=== PATIENT | female | born 1960 | race Caucasian/White ===

== ENCOUNTER 2019-01-04 11:11 | Emergency (ER) | payer OTHER, SELFPAY ==
[2019-01-04 11:13] VITALS: BP 180/110; PULSE 93; RESP 17; TEMP 36.6; O2SAT 99; BMI 26.4
--- NOTE | 2019-01-04 11:30 | ED.VISSUMM ---
- ER Visit Summary Date of Service: 01/04/19 Chief Complaint: Acute on chronic neck pain History of Present Illness: The patient is a 58 F cervical spine. Had prior neck films showed DJD is seen 4, 5, 6 and 7. Is never had any neck or back surgeries. Last several days has had increasing pain in her neck. Denies any numbness or weakness to her upper or lower extremities. Today was being seen in the urgent care due to the pain her blood pressure was elevated they were concerned about the blood pressure in center in the ER. She is not treated for hypertension and has no other significant past medical history. Currently she is on no medications. Physical Examination: Well-appearing middle-age female. Vital signs are stable initial blood pressure is 180/110 I think is secondary to pain. She is afebrile. She is in no acute distress. H EENT exam unremarkable. Neck is tender on the mid to lower cervical spine. Trachea midline. No lymphadenopathy. Lungs clear to auscultation bilaterally. Heart regular rhythm no murmur. Chest wall nontender and abdomen is soft nontender. Normal bowel sounds no peritoneal signs. She is moving all 4 extremities. They are neurovascular intact. Full range of motion. Upper and lower extremities. 5 out of 5 survey research associate strength. Dorsi plantar flexion intact. No cauda equina. No saddle anesthesia. Normal sensation. Back exam nontender. Neurologically she is intact with no motor or sensory deficits. Test Results: She had prior cervical spine films. And follow-up she will need an MRI of her cervical spine but she does not need that emergently today. Emergency Department Course and Treatment: Treated with IM morphine and p.o. Zofran. Patient doing well after IM injection. Repeat blood pressure is much better approximately 139/80. Patient has not had a history of hypertension. She will log her blood pressures at home and follow-up with her primary care physician. Today I think is secondary to a pain issue. Treatment Plan: Limited [place] 15 no refill for pain. Otherwise Motrin and/or Tylenol. She will need an MRI of her cervical spine and follow-up with a neurosurgeon or orthopedic system configuration specialist. Disposition: Discharge Impression: Acute on chronic neck pain with known degenerative disc disease of the cervical spine Elevated blood pressure secondary to pain This note was generated with TuneUpation software. It may contain incorrect words, spelling, and punctuation that were not noted in review of the chart prior to signing ED Disposition - Plan for ED Patient: Disposition: Home or Assisted Living Instructions: ED Neck Pain No Trauma Referrals: Lainey Solano DO [Primary Care Provider] - As soon as possible Additional Instructions: Follow-up your primary care physician. He will need to follow-up and get an outpatient MRI of your cervical spine of your neck. Viewed by a orthopedic spine surgeon or a neurosurgeon to determine if there is any intervention or treatment he will need for your degenerative disc disease of your neck. Most likely her blood pressure today was elevated due to the pain. This will need to be rechecked and followed up to ensure that you are not developing hypertension.
--- NOTE | 2019-01-04 11:33 | ED.DCSUM_ITS ---
- ER Visit Summary Date of Service: 01/04/19 Chief Complaint: Acute on chronic neck pain History of Present Illness: The patient is a 58 F cervical spine. Had prior neck films showed DJD is seen 4, 5, 6 and 7. Is never had any neck or back surgeries. Last several days has had increasing pain in her neck. Denies any numbness or weakness to her upper or lower extremities. Today was being seen in the urgent care due to the pain her blood pressure was elevated they were concerned about the blood pressure in center in the ER. She is not treated for hypertension and has no other significant past medical history. Currently she is on no medications. Physical Examination: Well-appearing middle-age female. Vital signs are stable initial blood pressure is 180/110 I think is secondary to pain. She is afebrile. She is in no acute distress. H EENT exam unremarkable. Neck is t renée on the mid to lower cervical spine. Trachea midline. No lymphadenopathy. Lungs clear to auscultation bilaterally. Heart regular rhythm no murmur. Chest wall nontender and abdomen is soft nontender. Normal bowel sounds no peritoneal signs. She is moving all 4 extremities. They are neurovascular intact. Full range of motion. Upper and lower extremities. 5 out of 5 foreman/project manager strength. Dorsi plantar flexion intact. No cauda equina. No saddle anesthesia. Normal sensation. Back exam nontender. Neurologically she is intact with no motor or sensory deficits. Test Results: She had prior cervical spine films. And follow-up she will need an MRI of her cervical spine but she does not need that emergently today. Emergency Department Course and Treatment: Treated with IM morphine and p.o. Zofran. Patient doing well after IM injection. Repeat blood pressure is much better approximately 139/80. Patient has not had a history of hypertension. She will log her blood pressures at home and follow-up with her primary care physician. Today I think is secondary to a pain issue. Treatment Plan: Limited [place] 15 no refill for pain. Otherwise Motrin and/or Tylenol. She will need an MRI of her cervical spine and follow-up with a neurosurgeon or orthopedic medicare contact specialist. Disposition: Discharge Impression: Acute on chronic neck pain with known degenerative disc disease of the cervical spine Elevated blood pressure secondary to pain This note was generated with Temptsteration software. It may contain incorrect words, spelling, and punctuation that were not noted in review of the chart prior to signing ED Disposition - Plan for ED Patient: Disposition: Home or Assisted Living Instructions: ED Neck Pain No Trauma Referrals: Lainey Solano DO [Primary Care Provider] - As soon as possible Additional Instructions: Follow-up your primary care physician. He will need to follow-up and get an outpatient MRI of your cervical spine of your neck. Viewed by a orthopedic spine surgeon or a neurosurgeon to determine if there is any intervention or treatment he will need for your degenerative disc disease of your neck. Most likely her blood pressure today was elevated due to the pain. This will need to be rechecked and followed up to ensure that you are not developing hypertension.
[2019-01-04] MEDS: Ondansetron ODT 4 MG Tablet PO (11:35)
[2019-01-04] MEDS: morphine 10 MG/ML Syringe IM (11:35)
--- NOTE | 2019-01-04 12:44 | DCINST.ED_ITS ---
ED Disposition - Plan for ED Patient: Instructions: ED Neck Pain No Trauma Prescriptions: Hydrocodone/Acetaminophen [[place] 7.5-325 Tablet] 1 ea PO Q4H PRN PRN #15 tab PRN Reason: Pain Referrals: Lainey Solano DO [Primary Care Provider] - As soon as possible Additional Instructions: Follow-up your primary care physician. He will need to follow-up and get an outpatient MRI of your cervical spine of your neck. Viewed by a orthopedic spine surgeon or a neurosurgeon to determine if there is any intervention or treatment he will need for your degenerative disc disease of your neck. Most likely her blood pressure today was elevated due to the pain. This will need to be rechecked and followed up to ensure that you are not developing hypertension.
[2019-01-04 12:47] VITALS: BP 139/91; PULSE 77; RESP 16
== END 2019-01-04 12:48 | disposition home or self-care (01) ==
PROVIDERS: Emergency Provider Emergency Medicine; Family Provider Family Medicine; PCP Family Medicine
DX: M50.321 Other cervical disc degeneration at C4-C5 level (principal); G89.29 Other chronic pain; R03.0 Elevated blood-pressure reading, without diagnosis of hypertension; Z72.0 Tobacco use
CPT/HCPCS: 96372; 99283

== ENCOUNTER 2019-03-02 17:46 | Emergency (ER) | payer OTHER, SELFPAY ==
[2019-03-02 17:46] VITALS: BP 121/86; PULSE 97; RESP 18; TEMP 36.1; O2SAT 97; BMI 25.8
--- NOTE | 2019-03-02 19:12 | ED.VIS.GEN ---
History of Present Illness Chief Complaint: Abd Pain Informant: Patient Onset: Today Context: Sudden Onset Timing: Continuous Quality: Pain Location: Right lower quadrant Current Severity: Mild Maximum Severity: Moderate Worsened by: Food, walking and palpation Relieved by: Nothing Associated Symptoms: No associated fever, anorexia, vomiting, diarrhea or constipation Narrative: Patient is a middle-aged male who presents with right lower quadrant pain that started this morning. She denies vomiting or diarrhea. Bowel movement this morning and normal. She denies hematemesis, melena hematochezia. She denies dysuria, frequency, urgency or hematuria. She has no history of intolerance to greasy or fried foods. There is no family history cholelithiasis. She denies abdominal surgery. She denies back pain. There is no history of trauma. She does point in the region superior to McBurney's point. She denies history of hernia. Prior similar symptoms: No Recent Illness/Hospitalization: No - Past Medical History (1) Obese Status: Chronic Past Medical History - Allergies and Home Meds Allergies/Adverse Reactions: Allergies No Known Allergies Allergy (Verified 03/02/19 17:48) Primary Care Physician: Lainey Solano DO [Primary Care Provider] - Prior records reviewed: Yes Surgical History: noncontributory Lives: Spouse/ Significant Other Smoking Status: Current every day smoker Drugs: None Review of Systems General: Denies: Chills, Fever, Malaise, Sweats Eyes: Denies: Visual changes - bilaterally, Diplopia ENT: Denies: Rhinorrhea, Sore throat Cardiovascular: Denies: Chest pain, Palpitations Respiratory: Denies: Dyspnea, Cough, Dyspnea on exertion Gastrointestinal: Reports: Abdominal pain, Nausea, - - She denies anorexia and denies food intolerance.. Denies: Vomiting, Diarrhea, Constipation, Melena, Hematochezia Genitourinary: Denies: Dysuria, Hematuria, Frequency Musculoskeletal: Denies: Myalgias, Arthralgias, Neck pain, Back pain, Extremity Pain Skin: Denies: Rash, Wounds Neurological: Denies: Headache, Weakness, Numbness Allergy: Denies: Uticaria, Swelling of the mouth Physical Exam Vital Signs/Narrative: Vital Signs Temp Pulse Resp BP Pulse Ox 03/02/19 17:46 97 F L 97 18 121/86 H 97 Inital Vital Signs reviewed: Yes General: Well nourished, Well developed, No Acute Distress Head: Normocephalic, Atraumatic Eyes: Perrl, EOMI ENT: Moist mucous membranes, No rhinorrhea Neck: Supple, Nontender Cardiovascular: Regular rate, Regular rhythm, No murmurs Respiratory: No distress, CTA bilaterally, Chest nontender Abdomen: Soft, Nondistended, No masses, Tender, Guarding, Hypoactive bowel sounds, Umbilical hernia - Small umbilical reducible hernia, Freeman's sign - Equivocal Freeman sign. Negative for: Normal bowel sounds, Rebound tenderness, Ventral hernia, Inguinal hernia, Psoas sign, Obturator sign, Rovsig's sign Rectal: Deferred Back: Nontender, Normal Inspection. Negative for: CVA tenderness Extremities: Nontender, No edema Skin: Normal color, No rash. Negative for: Cyanosis - The make me laugh and make up for my city daily [place] day, Jaundice Neurological: Alert, Oriented x3, Cranial nerves II-XII grossly intact, Normal Strength, Normal Sensation Psychological: Normal affect, Normal Mood Diagnostic/Tx/Re-eval Impressions Abdomen/Pelvis CT 03/02/19 20:44 IMPRESSION: 1. Bilateral renal cysts. 2. Colonic diverticulosis with no evidence of associated diverticulitis. 3. Small fat-containing umbilical hernia. 4. Degenerative changes of the lumbar spine. 5. The appendix was not identified. 6. There is a lipid-containing subcutaneous nodule of the medial anterior left chest wall measuring 2.3 cm most likely representing a sebaceous cyst. 7. There is no evidence of free intra-abdominal or intrapelvic air, fluid, or inflammatory process. The pancreas and peripancreatic soft tissues appear within normal limits. Electronically Signed: Christiano Pearce MD at 23:36 EDT , Service support , 03/02/19 20:44 Abdomen/Pelvis WITH Contrast [CT] Stat Laboratory Results 03/02/19 03/02/19 19:55 19:55 WBC 8.6 RBC 4.78 Hgb 15.3 H Hct 43.5 MCV 91.0 MCH 32.0 MCHC 35.2 RDW 13.0 RDW Differential 43.5 Plt Count 233 MPV 10.2 Immature Gran % (Auto) 0.100 Neut % (Auto) 49.8 Lymph % (Auto) 41.2 H [place] % (Auto) 5.7 Eos % (Auto) 2.6 Baso % (Auto) 0.6 Absolute Neuts (auto) 4.3 Absolute Lymphs (auto) 3.55 Total Counted Not Reportable Sodium 139 Potassium 4.0 Chloride 106 Carbon Dioxide 29.0 Anion Gap 4 L BUN 21 H Creatinine 0.85 Estim Creat Clear Calc 67.54 Est GFR (MDRD) Af Amer 88 Est GFR (MDRD) Non-Af 73 BUN/Creatinine Ratio 24.8 H Glucose 104 Calcium 9.9 Total Bilirubin 0.50 Direct Bilirubin 0.13 AST 19 ALT 31 Alkaline Phosphatase 61 Total Protein 7.7 Albumin 4.1 Globulin 3.6 Lipase 793 H - Medical Decision Making Maximal tenderness superior to McBurney's point however patient does have a equivocal Freeman sign. Differential is cholelithiasis versus appendicitis versus other cause. Blood work was ordered to help differentiate whether a CT of the abdomen is the test of choice versus ultrasound of the right upper quadrant. Patient was medicated with Zofran and morphine and received IV fluids. Will reevaluate after labs are back to determine appropriate radiologic image. Lipase is 2 times normal. White count is normal. AST and ALT normal. Alk phos normal. Patient admits to a couple of beers occasionally on weekends. She denies history of pancreatitis. Because maximal tenderness in the proximity McBurney's point will obtain CT of the abdomen to evaluate her appendix as well as pancreas. Realizing that the [place] for biliary disease only 75%. CAT scan reveals no acute pathology. Radiologist commented the appendix was not visualized. Since patient does not have anorexia, not febrile and white count is normal will discharge to home with appropriate home-going instructions for pain of unknown etiology. ED Disposition - Plan for ED Patient: Disposition: Home or Assisted Living Diagnosis: Abdominal pain, acute, right lower quadrant, Elevated lipase Instructions: ED Abdominal Pain Unkn Cause, ED Abdominal Pain Appendx Poss Prescriptions: Dicyclomine HCl [Bentyl] 20 mg PO TIDAC #20 cap Referrals: Lainey Solano DO [Primary Care Provider] - 1-2 Days if not improving Additional Instructions: Even though the CAT scan revealed no abnormality no white count is normal there is a small possibility this may represent her appendix. If symptoms worsen or if you develop fever, loss of appetite or pain worsens return to the emergency department. Recommend follow-up with your primary care provider Dr. Lainey Solano in 24-48 hours.
[2019-03-02 19:46] VITALS: BP 141/78; PULSE 81; RESP 16; O2SAT 98
[2019-03-02] MEDS: Ondansetron 4 MG/2 ML Vial IV (19:57)
[2019-03-02] MEDS: Morphine 4 MG/ML Syringe IV (19:57)
[2019-03-02] MEDS: 0.9% Normal Saline 1,000 ML 1000 ML IV (19:58)
[2019-03-02 20:25] LABS: AST(SGOT) 19 U/L (15-37); Alanine Aminotransfer ALT/SGPT 31 U/L (13-56); Albumin, Serum 4.1 g/dL (3.2-5.0); Alkaline Phosphatase 61 U/L (45-117); Anion Gap 4 (5-15); BUN 21 mg/dL (7-18); BUN/Creat Ratio 24.8 RATIO (10-20); Bilirubin, Direct 0.13 mg/dL (0.00-0.30); Calcium,Total 9.9 mg/dL (8.5-10.1); Chloride 106 mmol/L (98-107); Creatinine, Serum 0.85 mg/dL (0.55-1.02); EST Glomerular Filtration Rate 73 mL/min (>60); Est Glom Filt Rate - Afr Amer 88 mL/min (>60); Estimated Creatinine Clearance 67.54 ml/min; Globulin 3.6 g/dL (2.2-4.2); Glucose 104 mg/dL (74-106); Lipase 793 U/L (73-393); Protein, Total 7.7 g/dL (6.4-8.2); Sodium Level 139 mmol/L (136-145)
[2019-03-02 20:37] LABS: Absolute Lymphocyte Count 3.55 X10^3/ul (0.83-4.51); Absolute Neutrophil Count 4.3 X10^3/uL (2.0-7.7); Basophil# 0.05 X10^3/uL; Basophil% 0.6 % (0-1); Eosinophil# 0.22 X10^3/uL; Eosinophils% 2.6 % (0-5); Hematocrit 43.5 % (37-47); Hemoglobin 15.3 g/dl (12.0-15.0); Lymphocyte # 3.55 X10^3/ul (4.0); Lymphocyte % 41.2 % (19-41); Mean Corp Hgb Conc 35.2 g/gl (32-36); Mean Platelet Vol. 10.2 fl (6.2-12.0); Monocyte# 0.49 X10^3/uL; Monocyte% 5.7 % (0-10); Neutrophil % 49.8 % (47-70); Platelet Count 233 K/mm3 (150-450); RBC Distribution Width SD 43.5 fl (35.1-43.9); Red Blood Count 4.78 M/mm3 (4.2-5.4); White Blood Count 8.6 K/mm3 (4.4-11.0)
[2019-03-02 20:38] LABS: POSITIVE COUNT NO; POSITIVE DIFFERENTIAL NO; POSITIVE MORPHOLOGY NO
--- NOTE | 2019-03-02 20:44 | CT_ITS ---
STUDY: CT ABDOMEN AND PELVIS WITH CONTRAST REASON FOR EXAM: Female, 58 years old. Right lower quadrant pain, elevated lipase RADIATION DOSAGE (If Supplied By Facility): CTDIvol = ( 17.03 ) mGy, DLP = ( 914.41 ) mGycm TECHNIQUE: Transaxial images were obtained from the dome of the diaphragm to the symphysis pubis without oral contrast. 100ml IV/Oral Isovue 300 was administered. Sagittal and coronal images were reconstructed. Individualized dose optimization techniques were used for this CT. COMPARISON: None. FINDINGS: There is a mosaic attenuation pattern of the lung bases. The visualized portions of the heart are within normal limits. There is a subcentimeter cyst of the left hepatic lobe. Normal gallbladder and extrahepatic biliary system. Normal spleen. Normal pancreas. Normal bilateral adrenal glands. There is a 1.3 cm right renal cyst. There is a 3.0 cm left renal cyst. Normal visualized stomach. Normal small intestine. There is colonic diverticulosis with no evidence of associated diverticulitis. There is non-visualization of the appendix. There are calcified plaques of the abdominal aorta and common iliac arteries. Normal inferior vena cava. Normal retroperitoneum. Normal urinary bladder. The uterus and adnexal structures appear normal. There is a small umbilical hernia containing fat. There are diffuse degenerative changes of the lumbar spine. There is a subcutaneous lipid-containing nodule of the medial anterior left chest wall measuring 2.3 cm, most likely representing a sebaceous cyst. CT/Abdomen/Pelvis WITH Contrast IMPRESSION: 1. Bilateral renal cysts. 2. Colonic diverticulosis with no evidence of associated diverticulitis. 3. Small fat-containing umbilical hernia. 4. Degenerative changes of the lumbar spine. 5. The appendix was not identified. 6. There is a lipid-containing subcutaneous nodule of the medial anterior left chest wall measuring 2.3 cm most likely representing a sebaceous cyst. 7. There is no evidence of free intra-abdominal or intrapelvic air, fluid, or inflammatory process. The pancreas and peripancreatic soft tissues appear within normal limits. Electronically Signed: Christiano Pearce MD at 23:36 EDT , Service support ,
[2019-03-02 22:00] VITALS: BP 131/71; PULSE 79; RESP 16; O2SAT 98
[2019-03-02 23:54] VITALS: BP 118/81; PULSE 89; RESP 13; O2SAT 94
== END 2019-03-02 23:55 | disposition home or self-care (01) ==
PROVIDERS: Emergency Provider Emergency Medicine; Family Provider Family Medicine; PCP Family Medicine
DX: R10.31 Right lower quadrant pain (principal); R74.8 Abnormal levels of other serum enzymes; R11.0 Nausea; E66.9 Obesity, unspecified; Z79.899 Other long term (current) drug therapy; F17.200 Nicotine dependence, unspecified, uncomplicated
CPT/HCPCS: 74177; 80048; 80076; 83690; 85025; 96361; 96374; 96375; 99283; J7030; Q9967; A4216; J2405

== ENCOUNTER → 2022-07-12 | Outpatient (CLI) | payer OTHER, SELFPAY ==
[2022-07-12 08:14] LABS: Absolute Lymphocyte Count 2.52 X10^3/uL (0.83-4.51); Absolute Neutrophil Count 5.2 X10^3/uL (2.0-7.7); Basophil# 0.05 X10^3/uL; Basophil% 0.6 % (0-1); Eosinophil# 0.18 X10^3/uL; Eosinophils% 2.1 % (0-5); Hematocrit 43.3 % (37-47); Hemoglobin 14.6 g/dL (12.0-15.0); Lymphocyte # 2.52 X10^3/ul (0.83-4.51); Lymphocyte % 29.9 % (19-41); Mean Corp Hgb Conc 33.7 g/dL (32-36); Mean Corpuscular Hgb 31.4 pg (27.0-32.0); Mean Corpuscular Volume 93.1 fL (81-99); Mean Platelet Vol. 10.1 fl (6.2-12.0); Monocyte# 0.51 X10^3/uL; NRBC Flagged by Analyzer 0 % (0-5); Neutrophil # 5.15 X10^3/uL (2.7-7.7); Neutrophil % 61.2 % (47-70); Platelet Count 211 K/mm3 (150-450); RBC Distribution Width CV 12.6 % (11.6-14.6); RBC Distribution Width SD 42.9 fl (35.1-43.9); Red Blood Count 4.65 M/mm3 (4.2-5.4); White Blood Count 8.4 K/mm3 (4.4-11.0)
[2022-07-12 08:44] LABS: Vitamin D,25 Hydroxy 53.1 ng/mL
[2022-07-12 08:59] LABS: AST(SGOT) 27 U/L (15-37); Alanine Aminotransfer ALT/SGPT 55 U/L (13-56); Albumin, Serum 3.7 g/dL (3.2-5.0); Alkaline Phosphatase 58 U/L (45-117); Anion Gap 6 (5-15); BUN 15 mg/dL (7-18); BUN/Creat Ratio 18.8 RATIO (10-20); Calcium,Total 9.3 mg/dL (8.5-10.1); Chloride 109 mmol/L (98-107); EST Glomerular Filtration Rate 77 mL/min (>60); Est Glom Filt Rate - Afr Amer 94 mL/min (>60); Globulin 3.7 g/dL (2.2-4.2); Glucose 117 mg/dL (74-106); Potassium 4.1 mmol/L (3.5-5.1); Protein, Total 7.4 g/dL (6.4-8.2); Sodium Level 143 mmol/L (136-145); Thyroid Stim Hormone (TSH) 2.91 uIU/mL (0.358-3.74)
== END | disposition home or self-care (01) ==
LOC: LAB 07:59
PROVIDERS: PCP Internal Medicine; Referring Provider Internal Medicine; Visit Provider Internal Medicine
DX: R73.01 Impaired fasting glucose (principal); I73.9 Peripheral vascular disease, unspecified; R09.89 Other specified symptoms and signs involving the circulatory and respiratory systems; E55.9 Vitamin D deficiency, unspecified; Z87.891 Personal history of nicotine dependence
CPT/HCPCS: 36415; 80053; 82306; 83036; 83525; 84443; 85025

== ENCOUNTER → 2022-08-21 | Outpatient (CLI) | payer OTHER, SELFPAY ==
--- NOTE | 2022-08-21 08:29 | AAVD_ITS ---
Reason For Study: ABDOMINAL BRUIT Aorta Measurements Aorta Doppler Measurements Proximal aorta measures1.69 x 1.71cm. in cross- Peak systolic flow velocities within the proximal sectional axis. aorta measure 48.1 cm/sec. Proximal aorta measures1.70cm. in longitudinal Peak systolic flow velocities within the mid aorta axis. measure 46.7 cm/sec. Mid aorta measures1.71 x 1.75cm. in cross- Peak systolic flow velocities within the distal sectional axis. aorta measure 50.2 cm/sec. Mid aorta measures1.70cm. in longitudinal axis. Distal aorta measures1.23 x 1.24cm. in cross- sectional axis. Distal aorta measures1.23cm. in longitudinal axis. Left Iliac Artery Left iliac artery measures 0.85 x 0.84 cm. in the cross-sectional axis. Left iliac artery measures 0.72 cm. in the longitudinal axis. Peak systolic velocity in the left iliac artery measures 107.3 cm/sec. Right Iliac Artery Right iliac artery measures 1.01 x 1.03 cm. in the cross-sectional axis. Right iliac artery measures 1.0 cm. in the longitudinal axis. Peak systolic velocity in the right iliac artery measures 55.9 cm/sec. Procedure Aorta IVC Iliac vasculature or bypass grafts [id number]. Exam performed in department. VL/Abd Aortic/IVC Duplex scan Interpretation Summary Maximal aortic dimension in the mid abdominal aorta at 1.71 x 1.75 cm in diamet er which is normal. Normal aortic flow velocities Left common iliac normal at 0.85 x 0.84 cm in diameter with very slightly incre ased velocity Right common iliac normal at 1.01 x 1.03 cm in diameter. Normal flow velocity. Ordering Physician: Evelyne Yang Referring Physician: Evelyne Yang Performed By: Shira Abbott, RDCS, RVT
--- NOTE | 2022-08-21 08:29 | ART_ITS ---
Reason For Study: PVD W/CLAUDICATION Procedure A bilateral lower extremity continuous wave Doppler with analog waveform analysis and ankle brachial indexes. Left Segmental Pressures Left brachial= 153mmHg. Left posterior tibial artery = 165mmHg. Left dorsalis pedis artery = 170mmHg. The left posterior tibial artery waveforms are triphasic. The left dorsalis pedis waveforms are triphasic. Right Segmental Pressures Right brachial= 150mmHg. Right posterior tibial artery = 98mmHg. Right dorsalis pedis artery = 97mmHg. The right posterior tibial artery waveforms are biphasic. The right dorsalis pedis waveforms are monophasic. Indices The right resting ankle brachial index is 0.64. The right ankle brachial index by the posterior tibial artery is 0.64. The right ankle brachial index by the dorsalis pedis is 0.63. The left resting ankle brachial index is 1.11. The left ankle brachial index by the posterior tibial artery is 1.08. The left ankle brachial index by the dorsalis pedis is 1.11. VL/Ankle Brachial Index Interpretation Summary Abnormal right lower extremity posterior tibialis and dorsalis pedis ankle-brac hial indices of 0.64 and 0.63 respectively with biphasic and monophasic Doppler waveforms consistent with moderate severity arterial occlusive disease. Normal left lower extremity resting posterior tibialis and dorsalis pedis ankle -brachial indices of 1.08 and 1.11 respectively with normal triphasic Doppler waveforms Ordering Physician: Evelyne Tariq Referring Physician: EVELYNE TARIQ MD Performed By: Shira Abbott RVT, RDCS
== END | disposition home or self-care (01) ==
PROVIDERS: PCP Internal Medicine; Referring Provider Internal Medicine; Visit Provider Internal Medicine
DX: I73.9 Peripheral vascular disease, unspecified (principal); R09.89 Other specified symptoms and signs involving the circulatory and respiratory systems; Z72.0 Tobacco use
CPT/HCPCS: 93922; 93978

== ENCOUNTER → 2022-09-06 | Outpatient (CLI) | payer OTHER, SELFPAY ==
--- NOTE | 2022-09-06 11:48 | EKG12_ITS ---
Test Reason : PREOP Blood Pressure : / mmHG Vent. Rate : 062 BPM Atrial Rate : 062 BPM P-R Int : 226 ms QRS Dur : 094 ms QT Int : 400 ms P-R-T Axes : 058 -39 -03 degrees QTc Int : 406 ms Sinus rhythm with 1st degree A-V block Left axis deviation Septal infarct , age undetermined Abnormal ECG Confirmed by RIO YU, PAYAM ([id number]), staff editor SONJA GRANDE ([id number]) on 09/07/2022 7:50:14 AM Referred By: Bertram Harvey Confirmed By:PAYAM PATE MD
== END | disposition home or self-care (01) ==
PROVIDERS: PCP Internal Medicine; Referring Provider Surgery; Visit Provider Surgery
DX: I49.9 Cardiac arrhythmia, unspecified (principal)
CPT/HCPCS: 93005

== ENCOUNTER → 2022-09-20 | Outpatient (CLI) | payer OTHER, SELFPAY ==
--- NOTE | 2022-09-20 12:13 | CDU_ITS ---
Reason For Study: BRUIT Rt. Velocities/BP Lt. Velocities/BP Prox CCA 62.0/10.0 cm/sec. Prox CCA 77.9/19.7 cm/sec. Mid CCA 59.1/14.7 cm/sec. Mid CCA 85.6/32.9 cm/sec. Dist CCA 67.16/22.3 cm/sec. Dist CCA 81.2/23.0 cm/sec. Prox ICA 50.9/15.0 cm/sec. Prox ICA 40.6/19.7 cm/sec. Mid ICA 66.0/20.7 cm/sec. Mid ICA 85.3/27.0 cm/sec. Dist ICA 57.5/11.2 cm/sec. Dist ICA 64.6/29.6 cm/sec. Rt. ICA/CCA = 66.0/67.6=1.0. Lt. ICA/CCA = 85.3/85.6=1.0. Prox ECA 55.4/11.0 cm/sec. Prox ECA 110.0/21.6 cm/sec. Rt. Vert. 41.5/14.1 cm/sec. Lt. Vert. 36.4/18.7 cm/sec. Right Extracranial There is homogeneous, smooth atherosclerotic plaque noted in the right common carotid artery. There is homogeneous, smooth atherosclerotic plaque noted in the right internal carotid artery. The right internal carotid artery is not well visualized. There is intimal thickening but no significant atherosclerotic plaque noted in the right external carotid artery. Antegrade flow is noted in the right vertebral artery. Left Extracranial There is intimal thickening but no significant atherosclerotic plaque noted in the left common carotid artery. There is intimal thickening but no significant atherosclerotic plaque noted in the left internal carotid artery. There is no significant atherosclerotic plaque noted in the left external carotid artery. Antegrade flow is noted in the left vertebral artery. Procedure Carotid Duplex [id number]. Exam performed in department. VL/Carotid Duplex Ultrasound Interpretation Summary Smooth plaque involving the proximal right internal carotid artery with less th an 50% stenosis based upon velocity. The right internal carotid artery however is not well visualized . Less than 50% stenosis right external carotid artery Intimal thickening at the proximal left internal carotid artery with less than 50% stenosis. The left internal carotid artery is adequately visualized Less than 50% stenosis left external carotid artery Patent and antegrade vertebral arteries bilaterally Ordering Physician: Bertram Harvey Referring Physician: Evelyne Yang Performed By: Shira Abbott RDCS, RVT
== END | disposition home or self-care (01) ==
PROVIDERS: PCP Internal Medicine; Referring Provider Surgery; Visit Provider Surgery
DX: I65.21 Occlusion and stenosis of right carotid artery (principal); R09.89 Other specified symptoms and signs involving the circulatory and respiratory systems
CPT/HCPCS: 93880

== ENCOUNTER 2022-10-01 06:14 | Day surgery (SDC) | payer OTHER, SELFPAY ==
[2022-10-01 06:31] LABS: Hematocrit 46.7 % (37-47); Hemoglobin 15.8 g/dL (12.0-15.0); Mean Corp Hgb Conc 33.8 g/dL (32-36); Mean Corpuscular Hgb 31.2 pg (27.0-32.0); Mean Corpuscular Volume 92.3 fL (81-99); Mean Platelet Vol. 9.7 fl (6.2-12.0); Platelet Count 227 K/mm3 (150-450); RBC Distribution Width CV 12.5 % (11.6-14.6); RBC Distribution Width SD 42.5 fl (35.1-43.9); Red Blood Count 5.06 M/mm3 (4.2-5.4); White Blood Count 8.3 K/mm3 (4.4-11.0)
[2022-10-01 06:45] LABS: Anion Gap 5 (5-15); BUN 15 mg/dL (7-18); BUN/Creat Ratio 18.9 RATIO (10-20); Calcium,Total 9.5 mg/dL (8.5-10.1); Chloride 110 mmol/L (98-107); Creatinine, Serum 0.79 mg/dL (0.55-1.02); EST Glomerular Filtration Rate 78 mL/min (>60); Est Glom Filt Rate - Afr Amer 94 mL/min (>60); Glucose 122 mg/dL (74-106); Sodium Level 143 mmol/L (136-145)
[2022-10-01 06:47] VITALS: BMI 24.7
--- NOTE | 2022-10-01 07:28 | PCM.HP.BLA ---
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 History of removal of cyst Family History? Father Myocardial infarction Hypertension Social History? Smoking Status:? Current every day smoker alcohol intake:? current alcohol intake frequency: holidays/special occasions only substance use type:? does not use what type of physical activity do you participate in:? walking frequency:? 3-4 times per week HPI HPI HPI: 62-year-old female who is referred by Dr. Evelyne Yang for surgical consultation regarding vascular claudication peripheral arterial occlusive disease and a written copy of my surgical consult recommendations will return to him.? She has greater than a [id number] history of cigarette smoking.? She recently ceased. The aortic ultrasound was obtained because of a bruit but no aneurysm was identified. Ankle-brachial indices were obtained on August 21, 2022 the right PT and DP KALPANA was 0.64 and 0.62 at rest with biphasic waveforms.? The left lower extremity PT and DP ankle-brachial index at rest 1.08 and 1.11 respectively with triphasic Doppler waveforms August 21, 2022 Reason For Study: PVD W/CLAUDICATION Procedure A bilateral lower extremity continuous wave Doppler with analog waveform analysis and ankle brachial indexes. Left Segmental Pressures Left brachial= 153mmHg. Left posterior tibial artery = 165mmHg. Left dorsalis pedis artery = 170mmHg. The left posterior tibial artery waveforms are triphasic. The left dorsalis pedis waveforms are triphasic. Right Segmental Pressures Right brachial= 150mmHg. Right posterior tibial artery = 98mmHg. Right dorsalis pedis artery = 97mmHg. The right posterior tibial artery waveforms are biphasic. The right dorsalis pedis waveforms are monophasic. Indices The right resting ankle brachial index is 0.64. The right ankle brachial index by the posterior tibial artery is 0.64. The right ankle brachial index by the dorsalis pedis is 0.63. The left resting ankle brachial index is 1.11. The left ankle brachial index by the posterior tibial artery is 1.08. The left ankle brachial index by the dorsalis pedis is 1.11. VL/Ankle Brachial Index Interpretation Summary Abnormal right lower extremity posterior tibialis and dorsalis pedis ankle-brachial indices of 0.64 and 0.63 respectively with biphasic and monophasic Doppler waveforms consistent with moderate severity arterial occlusive disease. ? Normal left lower extremity resting posterior tibialis and dorsalis pedis ankle-brachial indices of 1.08 and 1.11 respectively with normal triphasic Doppler waveforms ? ? Ordering Physician: Evelyne Yang Referring Physician: EVELYNE YANG MD Performed By: Shira Abbott Wyatt, [facility] The patient presents today.? She newly establish care with Dr. Evelyne Yang.? She states that for 2 years she has been having trouble with discoloration of her right foot with intermittent mitten numbness.? She sits at a computer 8 hours a day occasionally getting up.? Sometimes when she walks she will limp favoring her right leg due to numbness. She is not currently on any medication.? She does not take any anticoagulants.? She has not been on any cholesterol medication.? No antihypertensives.? She denies myocardial infarction or stroke. As of July 04, 2022 total cholesterol was 307 with triglycerides 195.? HDL was 43 and VLDL 38 with a LDL at 226.? Glucose was 111. As of July 12, 2022 her white count was 8.4 with a Humoryl 14.6 Molina crit 43.3 platelet count 211,000.? Glucose was 117 BUN was 15 creatinine 0.8.? Liver function tests were normal. ROS General General: Yes weight change and fatigue; No appetite, colon cancer, breast cancer or weakness HEENT HEENT: No difficulty swallowing, eye injury, eye surgery, swollen glands or hoarseness Endo Endocrine: No thyroid disease, diabetes mellitus, thyroid cancer, Hair loss, heat intolerance or cold intolerance Skin Skin: No rash or changing moles Musc Musculoskeletal: Yes back problems; No arthritis, rheumatoid arthritis, gout or joint pain Cardio Cardiovascular: No murmur, pacemaker, heart disease, atrial fibrillation, high blood pressure, heart attack, heart stent, palpitations, shortness of breat with exertion or chest pain Psych Psychiatric: No depression, anxiety or hearing voices Resp Respiratory: No shortness of breath, No sleep apnea, No cough, No COPD, No asthma, No emphysema and No wheezing Gastro Gastrointestinal: No abdominal pain, No nausea or vomiting, No diarrhea, No constipation, No blood in stool, Yes acid reflux, No hemorrhoids, No ulcers, No gallbladder problem and No black,tarry stools Phill Hematologic: No blood thinners, No blood disorders, No bleeding, No anemia and No blood clots Neuro Neurologic: No system reviewed and no additional complaints, except as documented, No as per HPI, No abnormal gait, No abnormal hearing, No abnormal movements, No abnormal speech, No behavioral changes, No burning sensations, No confusion, No convulsions, No disequilibrium, No dizziness, No localized weakness, No frequent falls, No headache(s), No lack of coordination, No loss of vision, No memory loss, No numbness (Right foot), No other visual disturbances, No radicular pain, No restless legs, No sensory deficit, No syncope, Yes tingling (Right foot), No tremor(s), No weakness and No other Exam Const General: cooperative, comfortable and no acute distress Nutritional Appearance: average body habitus [facility] Head: normal to inspection Eyes General: appearance normal, both eyes and all related structures Neck Neck: normal visual inspection Other: Carotids are somewhat difficult to palpate.? Possible slight bruit on the left.? No palpable adenopathy. Bilateral radials and brachials 3+. Bilateral femorals 3+. Left popliteal DP and PT 3+ Right popliteal, DP, PT absent Chest Other: Chest has increased AP diameter.? Adequate respiratory excursion. Resp Other: Clear in the apices. Cardio Other: Occasional ectopic beat, otherwise regular I do not detect a murmur GI Palpation: soft and no hepatosplenomegaly Other: Aorta is palpable and does not appear to be expansile.? No bruits noted Musc Cervical Spine: normal cervical lordosis Skin General: no rashes or lesions noted Neuro General: patient alert, patient awake and patient oriented x3 Extrem Other: Right foot is violaceous and cool to touch.? Bilateral feet suggest some digital atrophy.? No ulcerations on the right.? Left foot is warm.? There is elevation pallor on the right and dependent rubor Psych Appearance: grossly normal Assessment and Plan Assessment and Plan (1) PVD (peripheral vascular disease) with claudication: ?Status:?Acute ?Plan: Copy: Dr. Evelyne Harvey M.D., F.A.C.S. (2) Carotid bruit: ?Status:?Acute (3) Irregular heartbeat: ?Status:?Acute (4) Abnormal ankle brachial index (KALPANA): ?Status:?Acute ? ? ? Orders: Orders 12 Lead EKG Today I49.9 - Cardiac arrhythmia, unspecified ? Carotid Duplex Ultrasound Today R09.89 - Other specified symptoms and signs involving the circulatory and respiratory systems ? Plan Patient has a mildly irregular heart rate.? I recommend obtaining an EKG. Patient has difficult to palpate carotids very soft bruit on the left.? Long-term 40+ year pack year history of tobacco use.? I recommend carotid duplex imaging. Her abdominal exams not remarkable her aorta is easily palpable does not appear to be expansile Findings suggest occlusion of the right superficial femoral artery based upon clinical examination and patient's symptoms.? I propose a abdominal pelvic right lower extremity arteriogram via retrograde left common femoral approach.? Possible end of endovascular intervention.? I discussed the technique, benefit, risk, alternatives.? No guarantees of success have been offered.? Post procedure the patient if she has successful intervention would be initiated on rivaroxaban 2.5 mg orally twice daily in addition to low-dose aspirin 81 mg daily. Because of her hyperlipidemia and peripheral arterial occlusive disease I instructed instructed her to initiate 81 mg aspirin daily at this time I have asked her to contact Dr. Evelyne Yang's office regarding her hyperlipidemia.? I think a discussion regarding starting her on statin medication would be beneficial to her peripheral vascular outcome. She has had an opportunity to ask and have questions answered.? I appreciate the opportunity of assisting with her surgical care.? We will schedule procedure at her discretion. Copy: Dr. Evelyne Harvey M.D., F.A.C.S. Carotid duplex imaging did not demonstrate any critical disease. EKG showed sinus rhythm with first-degree AV block. Septal infarct age undetermined. Left axis deviation I have examined the patient and the H&P has been reviewed. There are no clinical changes since date of exam. Bertram Harvey M.D., F.A.C.S.
--- NOTE | 2022-10-01 09:24 | OP.PCM_ITS ---
Report of Operation Date of Procedure: 10/01/22 Pre-Operative Diagnosis: Right lower extremity vascular claudication Post-Operative Diagnosis: Mild disease right distal common iliac/proximal external iliac. Diffuse disease proximal right superficial femoral artery with complete occlusion of the right mid superficial femoral artery Patent right popliteal and three-vessel infrageniculate runoff Surgery/Procedure Performed:: Abdominal pelvic right lower extremity arteriogram with attempted recanalization of complete occlusion of the right mid superficial femoral artery Description of Surgical Findings:: Timeout and informed consent was obtained. 62-year-old female was taken to the special procedures lab placed upon the table. Bilateral groins were sterilely prepped and draped. She received 50 mcg of fentanyl and 2 mg of Versed is intravenous sedation. Ultrasound was used to identify the left common femoral artery 2% lidocaine was instilled as a local anesthetic throughout the procedure a total of 10 cc was used. Under ultrasound guidance a micropuncture needle was inserted into the left common femoral artery followed by Seldinger wire technique micropuncture sheath 035 J-wire 5 [place] short sheath dilator. Using an 035 angled Glidewire 5 [place] universal flush catheter was placed into the proximal abdominal aorta. Using Visipaque contrast the rate of 15 cc a second for 12 cc and AP aortogram was obtained. Using a Glidewire the catheter was withdrawn and then positioned into the right proximal superficial femoral artery. Static views of the right lower extremity were obtained down to the knee. This demonstrated complete occlusion of the right mid superficial femoral artery as well as diffuse disease proximally. I placed a Magic wire and exchanged out the 5 [place] sheath for a 7 [place] destination sheath. The patient received 8000 units of heparin. Then using a 035 quick cross catheter and a combination of a 035 floppy Glidewire and an 035 stiff Glidewire I was able to get through the initial occlusive Of the blockage. Despite multiple attempts I was not able to get back into the true lumen. I then withdrew the quick cross catheter to proximal to the obstruction and completed images of the right lower extremity demonstrating three-vessel runoff to the ankle. She tolerated the procedure well. Using a Magic wire then the sheath was removed and a Perclose device was placed on the left groin. There was somewhat of a hematoma present upon removing the destination sheath so pressure was held for hemostasis and to milk out the hematoma which was successfully done. Patient came minimally hypotensive and was asymptomatic. She was given a fluid bolus with resolution. Her feet were inspected noted to be warm and viable unchanged preintervention. She was has not taken to recovery area for observation Images demonstrate a patent abdominal aorta patent bilateral renal arteries infrarenal abdominal aorta has mild diffuse calcific disease. Bilateral common iliacs external iliacs and internal iliacs are patent. There is moderate disease of the proximal right superficial femoral artery which then tapers and completely occludes in the mid thigh. There is extensive collateralization. The superficial femoral artery then recannulate's prior to the popliteal. There appears to be three-vessel runoff to the foot. Subsequent to the recanalization attempt images were obtained of runoff to the right lower extremity which appears to be intact Consideration for possible future right common femoral to suprageniculate popliteal bypass would be a consideration. Bertram Harvey M.D., F.A.C.S. Surgeon: Bertram Harvey Type of Anesthesia: IV Sedation and Local
[2022-10-01 11:47] LABS: ACT Activated Clotting Time 126 sec (74-137)
[2022-10-01 11:48] LABS: ACT Activated Clotting Time 254 sec (74-137)
[2022-10-01 11:48] LABS: ACT Activated Clotting Time 225 sec (74-137)
== END 2022-10-01 16:04 | disposition home or self-care (01) ==
PROVIDERS: PCP Internal Medicine; Referring Provider Surgery; Visit Provider Surgery
DX: I73.9 Peripheral vascular disease, unspecified (principal); R09.89 Other specified symptoms and signs involving the circulatory and respiratory systems; I10 Essential (primary) hypertension; F17.210 Nicotine dependence, cigarettes, uncomplicated; Z79.899 Other long term (current) drug therapy
CPT/HCPCS: 36200; 36245; 36415; 75625; 75710; 76937; 80048; 85027; 85347; 99152; 99153; C1769; J7030; J7040; Q9967; C1760; C1887; C1894

== ENCOUNTER 2025-05-30 10:40 | Emergency (ER) | payer MEDICARE, OTHER, SELFPAY ==
[2025-05-30 10:41] VITALS: BP 177/104; PULSE 96; RESP 16; TEMP 36.6; O2SAT 98; BMI 25.2
--- NOTE | 2025-05-30 11:17 | CT_ITS ---
EXAM: CT Abdomen and Pelvis With Intravenous Contrast CLINICAL INDICATION: BLOODY DIARRHEA AND LOWER CRAMPING ABDOMINAL PAIN TECHNIQUE: Axial computed tomography images of the abdomen and pelvis with intravenous contrast. This CT exam was performed using one or more of the following dose reduction techniques: automated exposure control, adjustment of the mA and/or kV according to patient size, and/or use of iterative reconstruction technique. COMPARISON: No relevant prior studies available. FINDINGS: LUNG BASES: Unremarkable. No mass. No consolidation. MEDIASTINUM: Small esophageal hiatal hernia. ABDOMEN: LIVER: Hepatomegaly with fatty infiltration. GALLBLADDER AND BILE DUCTS: Unremarkable. No calcified stones. No ductal dilation. PANCREAS: Unremarkable. No mass. No ductal dilation. SPLEEN: Unremarkable. No splenomegaly. ADRENALS: Unremarkable. No mass. KIDNEYS AND URETERS: Bilateral renal cysts, largest measuring up to 4.5 cm. No stones within either kidney. No hydronephrosis. STOMACH AND BOWEL: Fecal retention in the colon consistent with constipation. Apparent wall thickening of the sigmoid colon, likely secondary to chronic inflammation. No current fat stranding to indicate acute inflammation. Colonic diverticulosis without acute diverticulitis. No obstruction. PELVIS: APPENDIX: No findings to suggest acute appendicitis. BLADDER: Unremarkable. No mass. REPRODUCTIVE: Unremarkable as visualized. ABDOMEN and PELVIS: INTRAPERITONEAL SPACE: Unremarkable. No free air. No significant fluid collection. BONES/JOINTS: Multilevel endplate degenerative change and disc disease of the visualized spine, most prominent at L3-4. No acute fracture. No dislocation. SOFT TISSUES: Umbilical hernia containing fat. VASCULATURE: Scattered calcified atherosclerotic disease of aorta. No abdominal aortic aneurysm. LYMPH NODES: Unremarkable. No enlarged lymph nodes. CT/Abdomen/Pelvis W IV Cont ONLY IMPRESSION: 1. Small esophageal hiatal hernia. 2. Hepatomegaly with fatty infiltration. 3. No obstructive uropathy. 4. Umbilical hernia containing fat. 5. Fecal retention in the colon consistent with constipation. 6. Apparent wall thickening of the sigmoid colon, likely secondary to chronic inflammation. No current fat stranding to indicate acute inflammation. 7. Colonic diverticulosis without acute diverticulitis. Reading Location: [facility]
[2025-05-30 11:28] VITALS: BP 174/105; BP 177/102; BP 184/92; PULSE 77; PULSE 85; PULSE 97
[2025-05-30] MEDS: 0.9% Normal Saline (1000mL) 1,000 ML 1000 ML IV (11:34)
[2025-05-30 11:38] LABS: Hematocrit 44.5 % (37-47); Hemoglobin 15.3 g/dL (12.0-15.0); Immature Granulocytes Count 0.030 X10^3/uL (0.0-0.0); Mean Corp Hgb Conc 34.4 g/dL (32-36); Mean Corpuscular Volume 90.4 fL (81-99); Mean Platelet Vol. 10.5 fl (6.2-12.0); NRBC Flagged by Analyzer 0 % (0-5); Platelet Count 219 K/mm3 (150-450); RBC Distribution Width CV 12.8 % (11.6-14.6); RBC Distribution Width SD 42.3 fl (35.1-43.9); Red Blood Count 4.92 M/mm3 (4.2-5.4); White Blood Count 11.1 K/mm3 (4.4-11.0)
[2025-05-30 12:04] LABS: Anion Gap 12 (5-15); BUN 17 mg/dL (4-19); BUN/Creat Ratio 22.2 RATIO (10-20); Calcium,Total 11.0 mg/dL (7.6-11.0); Carbon Dioxide 25.4 mmol/L (21.0-32.0); Chloride 103 mmol/L (98-108); Estimated Creatinine Clearance 68.18 ml/min (50-250); Glucose 103 mg/dL (70-99); Potassium 3.9 mmol/L (3.3-5.1)
[2025-05-30 12:44] VITALS: BP 166/139; PULSE 69; RESP 19; O2SAT 99
--- NOTE | 2025-05-30 13:15 | ED.VIS.GI ---
HPI HPI - GI History of Present Illness Chief Complaint: GI Bleed Detail of Chief Complaint: Lower abdominal pain and bloody diarrhea Informant: patient Abdominal Pain/Flank Pain Onset: Today (Diarrhea started today.) and Yesterday (Vomited twice yesterday) Context: Sudden Onset Timing: Intermittent and Waxes and wanes Quality: Cramping Location: RLQ and LLQ Current Severity: Mild Maximum Severity: Moderate Worsened by: - (Examination, deep palpation); Not Worsened By Food or Movement Relieved by: Nothing and Remaining Still; Not Relieved By Antacids or Food Nausea/Vomiting/Emesis GI Symptom: Positive for Nausea and Vomiting Onset: Yesterday Diarrhea/Melena/Hematochezia GI Symptom: Positive for Diarrhea Onset: Today Stool Quality: Positive for Loose, Watery and BRB per rectum Associated Symptoms Associated Symptoms: Negative for Dysuria, Frequency, Hematuria or Urgency LMP: Postmenopausal Narrative Narrative: Patient is a 65-year-old woman. She has not had a colonoscopy in some time. She presents because of nausea and vomiting that occurred yesterday x 2. Today she reports lower cramping abdominal pain with diarrhea that is bloody. She has not been on any antibiotic in the past month. She does not know if she has history of diverticulosis. She denies weight gain or weight loss. She denies night sweats. She denies dysuria, frequency, urgency or hematuria. She denies low back pain or flank pain. She denies bone pain. She has not been around any ill contacts. She has no antibiotic allergies. She occasionally has an alcoholic beverage. Did not had an alcoholic beverage in over a month. Prior similar symptoms: No Recent Illness/Hospitalization: No [facility] Medical History Hypertension Chronic headaches Cyst of breast Tobacco abuse Home Medications ?Medication ?Instructions ?Recorded ?Last Taken ?Type ciprofloxacin HCl 500 mg tablet 500 mg PO BID #14 TABLETS 05/30/25 Unknown Rx dicyclomine 10 mg capsule 20 mg (2 x 10 mg) PO TIDAC #20 05/30/25 Unknown Rx CAPSULES metronidazole 500 mg tablet 500 mg PO Q8H #21 tabs 05/30/25 Unknown Rx xijxpjjo-omju-kdya 8 mg-folic 400 1 tab PO DAILY 05/30/25 05/29/25 History mcg-K 50 mcg-lutein 300 mcg tablet ([facility]) Allergy/AdvReac Type Severity Reaction Status Date / Time No Known Allergies Allergy Verified 05/30/25 10:43 Family History Father Myocardial infarction Hypertension Surgical History History of removal of cyst Social History Smoking Status: Current every day smoker tobacco type: cigarettes alcohol intake: current alcohol intake frequency: holidays/special occasions only substance use type: does not use what type of physical activity do you participate in: walking frequency: 3-4 times per week ROS ROS ED Constitutional Constitutional ED: Denies chills, fever(s), subjective, sweats or weight loss Cardiovascular Cardiovascular: Denies chest pain or palpitations Respiratory/Chest Respiratory/Chest: Denies cough, dyspnea or dyspnea on exertion Gastrointestinal Gastrointestinal: Reports abdominal pain, diarrhea, nausea, vomiting and other Details: Denies hematemesis or coffee-ground emesis. ; Denies constipation or melena Genitourinary Genitourinary ED: Denies dysuria, hematuria or urinary frequency Musculoskeletal Musculoskeletal: Denies back pain Integumentary Denies rash Neurologic Neurologic: Denies weakness Hematologic/Lymphatic Hematologic/Lymphatic: Denies easy bleeding or easy bruising EXAM Physical Exam Const Vital Signs: 05/30/25 10:41 05/30/25 11:28 05/30/25 12:44 Temperature 98 F Temperature Source Oral Pulse Rate 96 69 Pulse Rate [Lying] 77 Pulse Rate [Sitting (for 1 minute prior to obtaining)] 85 Pulse Rate [Standing (for 1 minute prior to obtaining)] 97 Respiratory Rate 16 19 H Blood Pressure 177/104 H 166/139 H Blood Pressure [Lying] 184/92 H Blood Pressure [Sitting (for 1 minute prior to obtaining)] 177/102 H Blood Pressure [Standing (for 1 minute prior to obtaining)] 174/105 H Blood Pressure Mean 128 148 Blood Pressure Mean [Lying] 122 Blood Pressure Mean [Sitting (for 1 minute prior to obtaining)] 127 Blood Pressure Mean [Standing (for 1 minute prior to obtaining)] 128 Pulse Ox 98 99 Oxygen Delivery Method Room Air Room Air Positive well nourished and well developed Constitutional Narrative: Orthostatic vital signs negative. General Appearance ED: well developed; Negative for pallor HEENT Reports TM's clear and dry mucous membranes normocephalic and atraumatic Tympanic Membrane ED: Yes TM's clear Mouth ED: Yes dry mucous membranes Mouth: dry mucous membranes Eyes PERRL and EOMs intact bilaterally General Eye ED: Negative for pale conjunctiva or scleral icterus Neck no lymphadenopathy, supple and no JVD Resp normal respiratory effort and clear to auscultation bilaterally Cardio regular rate, regular rhythm, S1 normal heart sound, S2 normal heart sound and no murmurs GI non-distended and no masses; Negative for non-tender Auscultation: hypoactive bowel sounds Palpation: soft and tender LLQ and RLQ; Negative for guarding, rigid, hepatomegaly, splenomegaly, hernia, mass or pulsatile mass Back/Spine no CVA tenderness Extremity full ROM General Extremety ED: Negative for edema or tenderness General Extremity: Negative for edema Neuro CN's II-XII intact bilaterally and moves all extremities Sensorium / Orientation: alert Psych mental status grossly normal Skin no wounds General Skin Exam: Negative for jaundice or pallor Lesions: no lesions Rashes: no rashes MDM MDM MDM Narrative Medical decision making narrative: With bloody diarrhea cramping abdominal pain need to consider infectious etiology, ischemic colitis, atypical presentation for diverticulitis. Will obtain blood work to assess white count, H&H electrolyte panel to assess renal function and electrolytes and specifically hypokalemia. Since she had blood on rectal exam with moist she watery stool she was typed and screened and orthostatic vital signs were obtained. Lab Data Attestation: I reviewed the patient's lab results. Lab results narrative: CBC is remarkable slight elevated white count. Differential is normal. Basic metabolic panel is unremarkable. Lactate is normal. Labs: Laboratory Results - last 24 hr 05/30/25 11:24 WBC 11.1 H RBC 4.92 Hgb 15.3 H Hct 44.5 MCV 90.4 MCH 31.1 MCHC 34.4 RDW Std Deviation 42.3 RDW Coeff of Angy 12.8 Plt Count 219 MPV 10.5 Immature Gran % (Auto) 0.300 Neut % (Auto) 67.3 Lymph % (Auto) 25.9 [place] % (Auto) 4.9 Eos % (Auto) 1.0 Baso % (Auto) 0.6 Absolute Neuts (auto) 7.5 Absolute Lymphs (auto) 2.88 Nucleated RBC % 0 Sodium 141 Potassium 3.9 Chloride 103 Carbon Dioxide 25.4 Anion Gap 12 BUN 17 Creatinine 0.76 Estim Creat Clear Calc 68.18 Est GFR (MDRD) Non-Af 87 BUN/Creatinine Ratio 22.2 H Glucose 103 H Lactic Acid 1.2 Calcium 11.0 Blood Type B NEGATIVE Antibody Screen NEGATIVE Radiography Diagnostic Testing: Clinical Impression(s) from Imaging Studies Abdomen/Pelvis CT 05/30/25 11:17 IMPRESSION: 1. Small esophageal hiatal hernia. 2. Hepatomegaly with fatty infiltration. 3. No obstructive uropathy. 4. Umbilical hernia containing fat. 5. Fecal retention in the colon consistent with constipation. 6. Apparent wall thickening of the sigmoid colon, likely secondary to chronic inflammation. No current fat stranding to indicate acute inflammation. 7. Colonic diverticulosis without acute diverticulitis. Reading Location: [facility] CT was reviewed. In light of the thickening of the sigmoid colon and no recent colonoscopy outpatient appointment was made to see Dr. Borja for colonoscopy. She was treated with metronidazole and ciprofloxacin. She also had other abnormalities. These would not explain her symptoms. She also has evidence of constipation per the radiologist which I am in agreement. I wonder if she is actually having diarrhea around the fecal load. Discharge Plan Triage Chief Complaint: GI Bleed ED Provider: Terry Rosenberg Dx/Rx/DC Orders Clinical Impression: Bloody diarrhea, Colon wall thickening, Elevated blood pressure reading with diagnosis of hypertension, Encopresis, Abdominal cramping, bilateral lower quadrant Instructions: ED Diarrhea, Unknown Cause Prescriptions: New metronidazole 500 mg tablet 500 mg PO Q8H Qty: 21 0RF ciprofloxacin HCl 500 mg tablet 500 mg PO BID Qty: 14 0RF dicyclomine 10 mg capsule 20 mg PO TIDAC Qty: 20 0RF No Action [facility] 8 mg iron-400 mcg-50 mcg tablet 1 tab PO DAILY Primary Care Provider: Evelyne Yang Referrals: Evelyne Yang MD [Primary Care Provider] - Magan Borja DO [Med Staff - Active Staff] - Keep Jacobo appointment Print Language: Bulgarian Disposition Disposition: Home, Self Care
[2025-05-30 13:29] VITALS: BP 181/80; PULSE 84; RESP 16; TEMP 37; O2SAT 100
== END 2025-05-30 13:30 | disposition home or self-care (01) ==
PROVIDERS: Emergency Provider Emergency Medicine; PCP Internal Medicine; Visit Provider Emergency Medicine
DX: K92.2 Gastrointestinal hemorrhage, unspecified (principal); R19.7 Diarrhea, unspecified; R15.9 Full incontinence of feces; R11.2 Nausea with vomiting, unspecified; R10.31 Right lower quadrant pain; R10.32 Left lower quadrant pain; I10 Essential (primary) hypertension; F17.210 Nicotine dependence, cigarettes, uncomplicated; Z78.0 Asymptomatic menopausal state; Z79.899 Other long term (current) drug therapy
CPT/HCPCS: 74177; 80048; 83605; 85025; 86850; 86900; 86901; 96360; 99285; Q9967

== ENCOUNTER → 2025-06-02 | Outpatient (CLI) | payer MEDICARE, OTHER, SELFPAY ==
[2025-06-06 12:52] LABS: Calprotectin, Stool 20 ug/g (0-120)
== END | disposition home or self-care (01) ==
LOC: LABSPEC 11:01
PROVIDERS: PCP Internal Medicine; Referring Provider Student in an Organized Health Care Education/Training Program; Visit Provider Student in an Organized Health Care Education/Training Program
DX: K58.0 Irritable bowel syndrome with diarrhea (principal)
CPT/HCPCS: 83630; 83993; 87177; 87209; 87329; 87493

== ENCOUNTER 2025-08-12 05:12 | Day surgery (SDC) | payer MEDICARE, OTHER, SELFPAY ==
--- NOTE | 2025-08-08 15:18 | PAT.ANESEVAL ---
Pre-Assessment Diagnosis/Proposed Procedure Planned Operative Procedure(s): CSCOPE Anesthesia History Anesthesia History - prosthetic assistant: Anesthesia History - prosthetic assistant Hx Hospitalization No 08/08/25 14:52 Any Problems With Anesthesia No 08/08/25 14:52 Cholinesterase deficiency No 08/08/25 14:52 You/Your Family Experience No 08/08/25 14:52 fever (hyperthermia) with Relationship Recent Exposure to Contagious No 12/11/15 10:53 Disease Does patient have nerve No 08/08/25 14:52 stimulator Patient instructed to have device shut off --Does patient have Pacemaker or ICD? When Was Last Pacemaker Check QUESTION #4 FULL TEXT: You/Your Family Experience fever (hyperthermia) with Anesthesia Last Oral Intake Last Oral intake: Last Oral Intake NPO since Meds taken in AM with sips of water? Meds patient instructed to take am of surgery PONV PONV - prosthetic assistant: PONV - prosthetic assistant Female Yes 08/08/25 14:52 HX of Motion Sickness No 08/08/25 14:52 HX of N/V After Surgery No 08/08/25 14:52 Non-Smoker No 08/08/25 14:52 Duration of Surgery greater No 08/08/25 14:52 than 60 minutes Number of Risk Factors 1 08/08/25 14:52 PONV Score Low Risk 08/08/25 14:52 Height & Weight Height & Weight: Anesthesia: Height & Weight Height 5 ft 7 in 05/30/25 10:41 Respiratory Assessment Respiratory Assessment - prosthetic assistant: Respiratory Tract Infection Hx - prosthetic assistant Hx Respiratory Tract Infection No 08/08/25 14:52 STOP Sleep Apnea STOP Sleep Apnea - prosthetic assistant: STOP Sleep Apnea - prosthetic assistant Hx Hypertension Yes: ON MEDS MANY YRS AGO 08/08/25 14:52 Hx Sleep Apnea No 08/08/25 14:52 CPAP No 12/11/15 12:39 BIPAP No 12/06/15 09:42 Do you snore loudly (louder Yes 08/08/25 14:52 than talking or can be heard Do you often feel tired/ No 08/08/25 14:52 fatigued/ sleepy during daytime? Has anyone observed you stop No 08/08/25 14:52 breathing during sleep? STOP Results Positive 08/08/25 14:52 QUESTION #5 FULL TEXT : Do you snore loudly (louder than talking or can be heard through closed doors)? 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 Specify any problems Hx of Preganancy in last 3 No 08/08/25 14:52 Months Nurse Filling Out Transfusion DSCHRIBER 08/08/25 14:52 & Questions: Date: 08/08/25 08/08/25 14:52 Time: 14:54 08/08/25 14:52 Patient unable to answer at this time (ie. confused, unrespo /Reproduction History /Reproductive History - prosthetic assistant: /Reproductive Hx- prosthetic assistant Hx Now No 08/08/25 14:52 Gestational Age (in weeks): EDC: Hx Hx Para Hx Section SAB No 08/08/25 14:52 PFSH Medical History Wears glasses Post-menopausal Alcohol use Arthritis Back pain Migraine headache Heartburn Shortness of breath on exertion History of pain when walking History of edema History of stress test Hypertension Home Medications ?Medication ?Instructions ?Recorded ?Last Taken ?Type lpjecdrs-bxzz-ernk 8 mg-folic 400 1 tab PO DAILY 05/30/25 05/29/25 History mcg-K 50 mcg-lutein 300 mcg tablet ([facility]) Allergy/AdvReac Type Severity Reaction Status Date / Time No Known Allergies Allergy Verified 08/08/25 14:51 Family History Father Myocardial infarction Hypertension Surgical History History of hysteroscopy History of removal of cyst Social History Smoking Status: Current every day smoker tobacco type: cigarettes alcohol intake: current alcohol intake frequency: holidays/special occasions only substance use type: does not use what type of physical activity do you participate in: walking frequency: 3-4 times per week Addt'l Information Additional Findings: >4 METs Recommendation Anesthesia Recommendation Anesthesia recommendation: OPTIMIZED for anesthesia
--- NOTE | 2025-08-08 15:19 | PAT.ANESEVAL ---
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 When Was Last Pacemaker Check QUESTION #4 FULL TEXT: You/Your Family Experience fever (hyperthermia) with Anesthesia Last Oral Intake Last Oral intake: Last Oral Intake NPO since Meds taken in AM with sips of water? 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 Female Yes 08/08/25 14:52 HX of Motion Sickness No 08/08/25 14:52 HX of N/V After Surgery No 08/08/25 14:52 Non-Smoker No 08/08/25 14:52 Duration of Surgery greater No 08/08/25 14:52 than 60 minutes Number of Risk Factors 1 08/08/25 14:52 PONV Score Low Risk 08/08/25 14:52 Height & Weight Height & Weight: Anesthesia: Height & Weight Height 5 ft 7 in 05/30/25 10:41 Respiratory Assessment Respiratory Assessment - supervisor esters and emulsifiers: Respiratory Tract Infection Hx - supervisor esters and emulsifiers Hx Respiratory Tract Infection No 08/08/25 14:52 STOP Sleep Apnea STOP Sleep Apnea - supervisor esters and emulsifiers: STOP Sleep Apnea - supervisor esters and emulsifiers Hx Hypertension Yes: ON MEDS MANY YRS AGO 08/08/25 14:52 Hx Sleep Apnea No 08/08/25 14:52 CPAP No 12/11/15 12:39 BIPAP No 12/06/15 09:42 Do you snore loudly (louder Yes 08/08/25 14:52 than talking or can be heard Do you often feel tired/ No 08/08/25 14:52 fatigued/ sleepy during daytime? Has anyone observed you stop No 08/08/25 14:52 breathing during sleep? STOP Results Positive 08/08/25 14:52 QUESTION #5 FULL TEXT : Do you snore loudly (louder than talking or can be heard through closed doors)? 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 Specify any problems Hx of Preganancy in last 3 No 08/08/25 14:52 Months Nurse Filling Out Transfusion DSCHRIBER 08/08/25 14:52 & Questions: Date: 08/08/25 08/08/25 14:52 Time: 14:54 08/08/25 14:52 Patient unable to answer at this time (ie. confused, unrespo /Reproduction History /Reproductive History - supervisor esters and emulsifiers: /Reproductive Hx- supervisor esters and emulsifiers Hx Now No 08/08/25 14:52 Gestational Age (in weeks): EDC: Hx Hx Para Hx Section SAB No 08/08/25 14:52 PFSH Medical History Wears glasses Post-menopausal Alcohol use Arthritis Back pain Migraine headache Heartburn Shortness of breath on exertion History of pain when walking History of edema History of stress test Hypertension Home Medications ?Medication ?Instructions ?Recorded ?Last Taken ?Type ocxfeyrv-zeck-lgvd 8 mg-folic 400 1 tab PO DAILY 05/30/25 05/29/25 History mcg-K 50 mcg-lutein 300 mcg tablet ([facility]) Allergy/AdvReac Type Severity Reaction Status Date / Time No Known Allergies Allergy Verified 08/08/25 14:51 Family History Father Myocardial infarction Hypertension Surgical History History of hysteroscopy History of removal of cyst Social History Smoking Status: Current every day smoker tobacco type: cigarettes alcohol intake: current alcohol intake frequency: holidays/special occasions only substance use type: does not use what type of physical activity do you participate in: walking frequency: 3-4 times per week Addt'l Information Additional Findings: > 4 METS Recommendation Anesthesia Recommendation Anesthesia recommendation: OPTIMIZED for anesthesia
[2025-08-12] VITALS (8 sets, daily range): BP systolic 95–149; BP diastolic 54–89; PULSE 56–82; RESP 16; TEMP 36.1–36.7; O2SAT 94–100; BMI 25.0
--- OUTSIDE RECORDS SUMMARY | 2025-08-12 05:15 | XMS RPT_ITS | CCD ---
Author Organization [facility] CliniSysd Care Team Providers Care Marketing Forecaster Name Role Phone Wayne Martin PA-C Primary Care Provider [phone] Dr. Lainey Solano Primary Care Provider Dr. Evelyne Yang Attending Provider Dr. Evelyne Yang Primary Care Provider Dr. Bertram Harvey Attending Provider [phone] Dr. Evelyne Yang Referring Provider Dr. Lainey Solano Primary Care Provider Dr. Evelyne Yang Attending Provider Dr. Evelyne Yang Primary Care Provider Wes, Dr. Bertram Judge Attending Provider Dr. Evelyne Yang Referring Provider Wes, Dr. Bertram Judge Referring Provider Celeola, Dr. Bertram Judge Other Provider Wayne MARTIN Referring Unavailable Wayne MARTIN Primary Care Unavailable MARIELENA VILLEGAS Attending Unavailable Dr. Evelyne Yang MD Primary Care Provider [phone] Dr. Terry Rosenberg MD Emergency Provider Dr. Evelyne Yang MD Referring Provider Lindsey Reyes Attending Provider Dr. Terry Rosenberg MD Attending Provider Lindsey Reyes Referring Provider Lindsey Aguilar Attending Unavailable Lindsey Aguilar Referring Unavailable Evelyne Yang Primary Care Unavailable Evelyne Yang Primary Care Unavailable Terry Rosenberg Attending Unavailable Friend, Magan Attending Unavailable Evelyne Yang Primary Care Unavailable Evelyne Yang Primary Care Unavailable Evelyne Yang Referring Unavailable Lindsey Aguilar Attending Unavailable Medications Current Medications Medication Drug Class(es) Dates Sig (Normalized) Sig (Original) ciprofloxacin 500 mg oral tablet (3 sources) Quinolone Antimicrobial Start: 05-30-2025 take 1 tablet by mouth twice daily Ciprofloxacin Hcl 500 mg tablet Active 500 mg PO TWICE A DAY 14 May 30, 2025 12:00am dicyclomine hydrochloride 10 mg oral capsule (10 sources) Anticholinergic Start: 05-30-2025 take 2 capsules by mouth three times daily before mealtime Dicyclomine 10 mg capsule Active 20 mg PO THREE TIMES DAILY BEFORE MEALS 20 May 30, 2025 12:00am Start: 03-02-2019 End: 07-08-2022 take 2 capsules by mouth three times daily before mealtime Dicyclomine 10 MG capsule Discontinued 20 mg PO THREE TIMES DAILY BEFORE MEALS March 02, 2019 12:00am July 08, 2022 8:54am Start: 03-02-2019 End: 07-08-2022 take 20 mg by mouth three times daily before mealtime Dicyclomine Discontinued 20 MG PO THREE TIMES DAILY BEFORE MEALS March 01, 2019 11:00pm July 08, 2022 7:54am metroNIDAZOLE 500 mg oral tablet (3 sources) Nitroimidazole Antimicrobial Start: 05-30-2025 take 1 tablet by mouth every eight hours Metronidazole 500 mg tablet Active 500 mg PO Q8H May 30, 2025 12:00am Fqkordhq-Tsz-Bbqp-F a-Vit K-Lut ([facility]) 8 mg iron-400 mcg-50 mcg tablet (3 sources) Start: 05-30-2025 take 1 tablet by mouth once daily Oqogmjvv-Jxb-Vior- Fa-Vit K-Lut ([facility]) 8 mg iron-400 mcg-50 mcg tablet Active 1 {tbl} PO DAILY May 30, 2025 12:00am Completed/Discontinued Medications Medication Drug Class(es) Dates Sig (Normalized) Sig (Original) ascorbic acid 500 mg oral capsule (7 sources) Vitamin C Start: 07-08-2022 End: 05-15-2023 take 1 mg by mouth once daily Ascorbic Acid (Vitamin C) 500 mg capsule Discontinued 1 mg PO DAILY July 08, 2022 12:00am May 15, 2023 11:20am Start: 07-08-2022 take 1 mg by mouth once daily Ascorbic Acid (Vitamin C) Active 1 MG PO DAILY July 07, 2022 11:00pm atorvastatin 40 mg oral tablet (17 sources) HMG-CoA Reductase Inhibitor Start: 09-06-2022 End: 05-15-2023 take 1 tablet by mouth once daily Atorvastatin 40 mg tablet Discontinued 40 mg PO DAILY 90 3 September 06, 2022 12:00am May 15, 2023 11:20am Start: 04-12-2019 take 1 tablet by lisa th once daily at bedtime for hyperlipidemia atorvastatin (LIPITOR) 40 mg tablet Indications: Mixed hyperlipidemia Take 1 tablet by mouth daily at bedtime. For cholesterol. 90 tablet 1 04/12/2019 Active Start: 03-02-2019 End: 07-08-2022 take 1 tablet by mouth once daily Atorvastatin 20 MG t ablet Discontinued 20 mg PO DAILY March 02, 2019 12:00am July 08, 2022 8:54am Comment on above: Take 1 tablet by lisa th daily at bedtime. For cholesterol. calcium, elemental, ORAL Tab (4 sources) Start: 012 take 1 tablet by mouth twice daily calcium, elemental, ORAL Tab Take 1 tablet by mouth twice daily. 0 03/09/2012 Active Comment on above: Take 1 tablet by lisa th twice daily. cholecalciferol 0.125 mg oral capsule (14 sources) Vitamin D Start: 023 End: 025 take 1 capsule by mouth once daily Cholecalciferol (Vitamin D3) 125 mcg (5,000 unit) capsule Discontinued 125 ug PO DAILY May 22, 2023 12:00am May 30, 2025 11:40am Start: 07-08-2022 End: 05-15-2023 take 1 capsule by mouth once daily Cholecalciferol (Vitamin D3) 25 mcg (1,000 unit) capsule Discontinued 25 ug PO DAILY July 08, 2022 12:00am May 15, 2023 11:21am Start: 03-09-2012 take 1 capsule by [facility] once daily cholecalciferol, vitamin D3, (VITAMIN D-3) 400 unit ORAL Cap Take 1 capsule by mouth once daily. 0 03/09/2012 Active Comment on above: Take 1 capsule by [facility] once daily. clindamycin 300 mg oral capsule (4 sources) Lincosamide Antibacterial Start : 04-16 take 1 capsule by mouth twice daily clindamycin (CLEOCIN) 300 mg capsule Indications: Cyst of left breast Take 1 capsule by mouth twice daily. 14 capsule 0 04/16/2022 Active Comment on above: Take 1 capsule by [facility] twice daily. cyclobenzaprine hydrochloride 5 mg oral tablet (4 sources) Muscle Relaxant Start : 05-24 take 1 tablet by mouth three times daily as needed for muscle spasms cyclobenzaprine (FLEXERIL) 5 mg tablet Indications: Chronic left-sided low back pain with left-sided sciatica Take 1 tablet by mouth three times daily as needed for Muscle Spasm. 30 tablet 3 05/24/2020 Active Comment on above: Take 1 tablet by [facility] three times daily as needed for Muscle Spasm. hydroCHLOROthiazide 25 mg oral tablet (11 sources) Thiazide Diuretic Start : 03-02 End: 07-08 Hydrochlorothiazide 25 MG tablet Discontinued 1 {tbl} PO DAILY March 02, 2019 12:00am July 08, 2022 8:54am Start: 01-07-2019 End: 07-08-2022 take 1 tablet by mouth once daily Hydrochlorothiazide Discontinued 1 TABLET PO DAILY March 01, 2019 11:00pm July 08, 2022 7:54am Comment on above: Take 1 tablet by lisa once daily. lisinopril 20 mg oral tablet (11 sources) Angiotensin Converting Enzyme Inhibitor Start: 2018 End: 2021 take 1 tablet by mouth once daily Lisinopril 20 MG tablet Discontinued 20 mg PO DAILY March 02, 2019 12:00am July 08, 2022 8:54am Comment on above: Take 1 tablet by lisa once daily. methylPREDNISolone 4 mg oral tablet (3 sources) Corticosteroid Start: 2022 End: 2022 take 1 tablet by mouth once Methylprednisolone (Medrol (Henry)) 4 mg tablets,dose pack Discontinued 4 mg PO per package directions 21 6 0 May 15, 2023 12:00am May 20, 2023 12:00am May 21, 2023 12:04am Multivitamin,Tx-Iron-Min erals (Therems-M) 1 TABLET tablet (7 sources) Start: 2013 End: 2022 take 1 tablet by mouth once daily Multivitamin,Tx-Iron-Mi nerals (Therems-M) 1 TABLET tablet Discontinued 1 {tbl} PO DAILY April 10, 2014 12:00am May 15, 2023 11:21am Start: 04-10-2014 take 1 tablet by lisa th once daily Multivitamin,Wf-Lrys-Btjobijb (Therems-M ) 1 TABLET tablet Active 1 TABLET PO DAILY April 09, 2014 11:00pm Start: 04-10-2014 take 1 tablet by lisa th once daily Multivitamin,Sh-Xzmi-Mfabtoul (Therems-M ) 1 TABLET tablet Active 1 TABLET PO DAILY April 10, 2014 12:00am Mkqhuxofozwrd-Iq-Ycrh-Minera ls (WOMEN'S DAILY MULTIVITAMIN) 18-0.4 mg ORAL Tab (4 sources) Start: 03-09-2012 take 1 tablet by mouth once daily Soglbjlfdfiyi-Bo-Vmct-Minerals (WOMEN'S DAILY MULTIVITAMIN) 18-0.4 mg ORAL Tab Take by mouth once daily. One daily 0 03/09/2012 Active Comment on above: Take by mouth once d aily. One daily Doran 7-Qqz-Zqy-Fish Oil (Fi sh Oil) 60-90-500 mg capsule (3 sources) Start: 05-22-2023 End: 05-30-2025 Doran 2-Hqp-Sze-Fish Oil (Fi sh Oil) 60-90-500 mg capsule Discontinued 1 NMA PO DAILY May 22, 2023 12:00am May 30, 2025 11:40am Doran-3 Fatty Acids (FISH OI L) 500 mg ORAL Cap (4 sources) Start: 03-09-2012 take 1 capsule by mouth once daily Doran-3 Fatty Acids (FISH OIL) 500 mg ORAL Cap Take 1 capsule by mouth once daily. 0 03/09/2012 Active Comment on above: Take 1 capsule by mo [facility] once daily. dl-alpha tocopheryl acetate 100 unt oral capsule (3 sources) Start: 05-22-2023 End: 05-22-2023 take 1 capsule by mouth once daily Vitamin E (Dl, Acetate) 45 mg (100 unit) capsule Discontinued 45 mg PO DAILY May 22, 2023 12:00am May 22, 2023 3:19pm Problems Active Problems Problem Classification Problem Date Documented Da te Episodic/Chronic Abdominal pain (10 sources) Right lower quadrant pain; Translations: [Right lower quadrant pain] 05-30-2025 Episodic Administrative/social admission (7 sources) Persons encountering health services in other specified circumstances; Translations: [Other reasons for seeking consultation] Episodic Cardiac dysrhythmias (9 sources) Irregular heart beat; Translations: [Cardiac arrhythmia, unspecified] Chronic Diabetes mellitus without complication (7 sources) Hyperglycemia; Translations: [Impaired fasting glucose] 07-10-2022 Episodic Disorders of lipid metabolism (4 sources) Hyperlipidemia; Translations: [Hyperlipidemia, unspecified] 01-15-2013 Chronic Esophageal disorders (6 sources) Gastroesophageal reflux disease; Translations: [Gastro-esophageal reflux disease without esophagitis] 09-03-2022 Chronic Essential hypertension (3 sources) Elevated blood pressure; Translations: [Essential (primary) hypertension] 05-30-2025 Chronic Gastrointestinal hemorrhage (1 source) Gastrointestinal hemorrhage, unspecified; Translations: [Gastrointestinal hemorrhage, unspecified] Onset: Episodic Menstrual disorders (4 sources) Amenorrhea; Translations: [Amenorrhea, unspecified] Onset: 2 03-09-2012 Chronic Occlusion or stenosis of precerebral arteries (5 sources) Carotid artery stenosis; Translations: [Occlusion and stenosis of unspecified carotid artery] 09-20-2022 Chronic Other circulatory disease (7 sources) Abdominal bruit; Translations: [Other specified symptoms and signs involving the circulatory and respiratory systems] 07-08-2022 Episodic Other circulatory disease (7 sources) Other specified symptoms and signs involving the circulatory and respiratory systems; Translations: [Other symptoms involving cardiovascular system] Episodic Other circulatory disease (6 sources) Carotid bruit; Translations: [Other specified symptoms and signs involving the circulatory and respiratory systems] 09-03-2022 Episodic Other gastrointestinal disorders (5 sources) Disorder of colon; Translations: [Disease of intestine, unspecified] 05-30-2025 Episodic Other gastrointestinal disorders (5 sources) Hemorrhagic diarrhea ; Translations: [Diarrhea, unspecified] 05-30-2025 Episodic Other gastrointestinal disorders (3 sources) Encopresis ; Translations: [Full incontinence of feces] 05-30-2025 Episodic Other gastrointestinal disorders (1 source) Diarrhea, unspecified; Translations: [Diarrhea, unspecified] Onset: 5 Episodic Other gastrointestinal disorders (1 source) Disease of intestine, unspecified; Translations: [Disease of intestine, unspecified] Onset: 5 Episodic Other liver diseases (7 sources) High lipase level in serum; Translations: [Abnormal levels of other serum enzymes] 03-03-2019 Episodic Other nutritional; endocrine; and metabolic disorders (7 sources) Obesity; Translations: [Obesity, unspecified] 12-11-2015 Chronic Other screening for suspected conditions (not mental disorders or infectious disease) (9 sources) Patient encounter status; Translations: [Encounter for screening for malignant neoplasm of colon] Onset: 3 02-08-2013 Episodic Other skin disorders (1 source) Infection of sebaceous cyst; Translations: [Sebaceous cyst] Episodic Peripheral and visceral atherosclerosis (14 sources) Peripheral vascular disease; Translations: [Peripheral vascular disease, unspecified] Chronic Residual codes; unclassified (7 sources) Tobacco user; Translations: [Tobacco use] 07-08-2022 Episodic Residual codes; unclassified (6 sources) Finding of systemic arterial pressure; Translations: [Other general symptoms and signs] 08-21-2022 Episodic Residual codes; unclassified (3 sources) Other general symptoms and signs; Translations: [Other abnormal clinical findings] Episodic Screening and history of mental health and substance abuse codes (11 sources) Tobacco smoking behavior - finding; Translations: [Personal history of nicotine dependence] Episodic Spondylosis; intervertebral disc disorders; other back problems (4 sources) Backache; Translations: [Dorsalgia, unspecified] 11-05-2021 Episodic Sprains and strains (3 sources) Strain of knee; Translations: [Strain of unspecified muscle(s) and tendon(s) at lower leg level, left leg, initial encounter] 05-15-2023 Episodic Substance-related disorders (4 sources) Light cigarette smoker; Translations: [Nicotine dependence, cigarettes, uncomplicated] Onset: 2 03-09-2012 Chronic Unclassified (7 sources) Endometrial thickening on ultra sound 12-11-2015 Past or Other Problems Problem Classification Problem Date Documented Da te Episodic/Chronic Nonmalignant breast conditions (5 sources) Cyst of left breast; Translations: [Solitary cyst of left breast] Onset: 03-09-2012 Episodic Results Test Name Value Interpretation Reference Range Facility M7400.3302on 06-12-2025 M7400.3302 __ TESTING PERFORMED AT [facility]. ORIGINAL REPORT ON FILE IN LAB CONTAINS ADDITIONAL TEST SITE INFORMATION. Giardia Lamblia EIA NEGATIVE Normal [facility] Comment on above: Performed By: #### M 600.5000, M100.6796, M7400.3302, M100.0605, L7000.0700 ####[facility] [id number] [place], [place], [address] Ova and Parasites 8623on OP OVA AND PARASITES EXAM, ROUTINE These results were obtained using wet preparation(s) and trichrome stained smear. This test does not include testing for Crytosporidium parvum, Cyclospora, or Microsporidia. One negative specimen does not rule out the possibility of a parasitic infection. TESTING PERFORMED AT [facility]. ORIGINAL REPORT ON FILE IN LAB CONTAINS ADDITIONAL TEST SITE INFORMATION. Ova/Parasite Exam NO OVA, CYSTS, OR PARASITES FOUND. Normal [facility] Comment on above: Performed By: #### M 600.5000, M100.6796, M7400.3302, M100.0605, L7000.0700 ####[facility] [id number] [place], [address] Calprotectin, Stoolon [address] 20 ug/g Normal 0-120 [facility] Comment on above: Result Comment: Conc entration Interpretation Follow-Up < 5 - 50 ug/g Normal None >50 -120 ug/g Borderline Re-evaluate in 4-6 weeks >120 ug/g Abnormal Repeat as clinically indicated Performed at: [address] [id number] Pet Store Merchandiser: Garth Velasco MD, Phone: [phone] Performed By: #### M 600.5000, M100.6796, M7400.3302, M100.0605, L7000.0700 #### [facility] [address] [place], [address] CDIFF (PCR)on 06-02-2025 CDIFF A positive C. difficile molecular test does not differentiate between an active C. difficile infection and C. difficile colonization. Use clinical judgement and paired toxin/antigen testing to identify true infection and need for treatment. C diff DNA Spec Ql SARAH+probe Reference Range: Negative CepDragon Portsid GeneXpert: polymerase chain reaction (PCR) 027 027 [id number] Presumptive Negative *for epidemiolologic???use C. Diff PCR Negative- No toxigenic C. Diff Detected Normal [facility] Comment on above: Performed By: #### M 600.5000, M100.6796, M7400.3302, M100.0605, L7000.0700 #### [facility] [address] [place], [address] Calprotectin stoolOrdered By : Lindsey Aguilar on 06-02-2025 Calprotectin stool 20 ug/g 0-120 [facility] Comment on above: Concentration Interp retation Follow-Up< 5 - 50 ug/g Normal None>50 -120 ug/g Borderline Re-evaluate in 4-6 weeks >120 ug/g Abnormal Repeat as clinically indicatedPerformed at: [facility] [id number] [place], [place] [id number] Director: Garth Velasco MD, Phone: [phone] Clostridium difficile detect ion by polymerase chain reactionOrdered By: Lindsey Aguilar on 06-02-2025 C. difficile DNA SARAH+probe Ql (Unsp spec) [facility] Stool Lactoferrin/WBCon 05-11 WBCST Normal Reference Ran ge = Negative Fecal WBC Lactoferrin Negative: No Fecal WBC Lactoferrin present Normal [facility] Comment on above: Performed By: #### M 600.5000, M100.6796, M7400.3302, M100.0605, L7000.0700 #### [facility] [address] [place], [address] Stool lactoferrin detection by immunoassayOrdered By: Lindsey Aguilar on 06-02-2025 Lactoferrin IA Ql (Stl) W [facility] Gastroenterology Visit Repor ton 05-31-2025 Gastroenterology Visit Report [facility] [address] [place] [address] OFFICE VISIT Date of Service: 05/31/25 MR#: [id number] Acct: [id number] Name: NALLELY MERAZ Rep #: [id number] : 1960 Provider: JORDEN Delong Age/Sex: 65/F Location: [email or web address] Status: Signed Intake Vital Signs 05/30/25 10:41 Height 5 ft 7 in Intake Visit Reasons: ED follow up Chief Complaint: loose stools Allergies No Known Allergies Allergy (Verified 05/30/25 10:43) Medications ???Medication ???Instructions ???Recorded ???Confirmed ???Type ciprofloxacin HCl 500 mg tablet 500 mg PO BID #14 TABLETS 05/30/25 05/31/25 Rx dicyclomine 10 mg capsule 20 mg (2 x 10 mg) PO TIDAC #20 05/31/25 Rx CAPSULES metronidazole 500 mg tablet 500 mg PO Q8H #21 tabs 05/30/25 Rx tebsovja-wwhy-xknk 8 mg-folic 400 1 tab PO DAILY 05/30/25 05/31/25 History mcg-K 50 mcg-lutein 300 mcg tablet ([facility]) Have you fallen in the past year?: No Nurse's Note: OV 05/31/25 Pt here to f/u from the ER. Pt reports she is doing well. Denies bloody diarrhea, n/v/c/d, abdominal pain since the ER. Pt reports she had one small formed stool since the ER visit but has not been eating much since. Reports prior hx of EGD and colonoscopy about 15 years ago. Still has gallbladder. [facility] Medical History Hypertension Chronic headaches Cyst of breast Tobacco abuse Surgical History History of removal of cyst Family History Father Myocardial infarction Hypertension Social History Smoking Status: Current every day smoker tobacco type: cigarettes alcohol intake: current alcohol intake frequency: holidays/special occasions only substance use type: does not use what type of physical activity do you participate in: walking frequency: 3-4 times per week HPI HPI Chief Complaint: loose stools Details: NALLELY MERAZ, is a 65 F who presents to the office today for f/u. [facility] ED 05.30.25 with n/v x1 day and lower abd cramping and bloody diarrhea. No recent ATB use. CBC with elevated WBC CT abd/pelvis 05.31.25; 1. Small esophageal hiatal hernia. 2. Hepatomegaly with fatty infiltration. 3. No obstructive uropathy. 4. Umbilical hernia containing fat. 5. Fecal retention in the colon consistent with constipation. 6. Apparent wall thickening of the sigmoid colon, likely secondary to chronic inflammation. No current fat stranding to indicate acute inflammation. 7. Colonic diverticulosis without acute diverticulitis. OV 7.22.25 Pt not having bm as she is not eating much at this point. She does endorse a hx of constipation with bm typically every few days. On Friday, she started with bloody loose stools, n/v and abd pain. This is what prompted her to go to the ED. She has never had an episode like this before. She has taken just one dose of the antibiotics. Last colonoscopy was about 15 years ago with normal findings. ROS Const Constitutional: Positive for fatigue; No fever(s) or weight change ENT ENT: No difficulty swallowing Gastro GI: Positive for abdominal pain, bloating, change in bowel habits, change in stool character, constipation, cramping, heartburn, excessive flatus, Blood in stool, nausea/dyspepsia and vomiting; No belching, coffee ground emesis, diarrhea, difficulty swallowing, feeling full early, incontinent of stools, Vomiting blood/hematemesis, loose stools, Black,tarry stools, pain with swallowing or other Musc Musculoskeletal: Positive for back pain; No joint pain Skin Skin: No yellowing of the eye or itchy eyes Psych Psychiatric: No anxiety and No depression Endo Endocrine: Positive for fatigue; No weight change Aller/Imm Allergy/Immunologic: No itchy eyes Phill/Lymp Hematologic/Lymphatic: No easy bleeding or easy bruising Exam Const General: cooperative, healthy appearing and comfortable Orientation: alert [facility] Head: normal to inspection Eyes General: appearance normal, both eyes and all related structures Neck Neck: normal visual inspection Chest Chest palpation inspection: normal inspection of the chest Resp Effort Inspection: normal respiratory effort Cardio Rate: regular rate Rhythm: regular rhythm GI Inspection: normal to inspection Auscultation: normal bowel sounds Palpation: soft and nontender Assessment and Plan Assessment and Plan (1) Bloody diarrhea: Status: Acute Plan: Nallely is a 65 yo female pt here today for f/u after ED visit for bloody diarrhea, abd pain and n/v x3 days. Pt underwent work up which showed elevated WBC count and CT (more content not included)... Normal [facility] Abdomen/Pelvis W IV Cont ONL Yon 05-30-2025 Abdomen/Pelvis W IV Cont ONLY [facility] [address] [place] [address] Abdomen/Pelvis W IV Cont ONLY MR#: [id number] Acct: [id number] Name: NALLELY MERAZ Rep #: [id number] : 1960 F 65 From: Senthil Meyer MD PCP: Dr. Evelyne Yang MD Status: REG Study: Abdomen/Pelvis W IV Cont ONLY Date of Exam: Exam# [id number] Ordering Dr: Terry Rosenberg MD EXAM: CT Abdomen and Pelvis With Intravenous Contrast CLINICAL INDICATION: BLOODY DIARRHEA AND LOWER CRAMPING ABDOMINAL PAIN TECHNIQUE: Axial computed tomography images of the abdomen and pelvis with intravenous contrast. This CT exam was performed using one or more of the following dose reduction techniques: automated exposure control, adjustment of the mA and/or kV according to patient size, and/or use of iterative reconstruction technique. COMPARISON: No relevant prior studies available. FINDINGS: LUNG BASES: Unremarkable. No mass. No consolidation. MEDIASTINUM: Small esophageal hiatal hernia. ABDOMEN: LIVER: Hepatomegaly with fatty infiltration. GALLBLADDER AND BILE DUCTS: Unremarkable. No calcified stones. No ductal dilation. PANCREAS: Unremarkable. No mass. No ductal dilation. SPLEEN: Unremarkable. No splenomegaly. ADRENALS: Unremarkable. No mass. KIDNEYS AND URETERS: Bilateral renal cysts, largest measuring up to 4.5 cm. No stones within either kidney. No hydronephrosis. STOMACH AND BOWEL: Fecal retention in the colon consistent with constipation. Apparent wall thickening of the sigmoid colon, likely secondary to chronic inflammation. No current fat stranding to indicate acute inflammation. Colonic diverticulosis without acute diverticulitis. No obstruction. PELVIS: APPENDIX: No findings to suggest acute appendicitis. BLADDER: Unremarkable. No mass. REPRODUCTIVE: Unremarkable as visualized. ABDOMEN and PELVIS: INTRAPERITONEAL SPACE: Unremarkable. No free air. No significant fluid collection. BONES/JOINTS: Multilevel endplate degenerative change and disc disease of the visualized spine, most prominent at L3-4. No acute fracture. No dislocation. SOFT TISSUES: Umbilical hernia containing fat. VASCULATURE: Scattered calcified atherosclerotic disease of aorta. No abdominal aortic aneurysm. LYMPH NODES: Unremarkable. No enlarged lymph nodes. CT/Abdomen/Pelvis W IV Cont ONLY IMPRESSION: 1. Small esophageal hiatal hernia. 2. Hepatomegaly with fatty infiltration. 3. No obstructive uropathy. 4. Umbilical hernia containing fat. 5. Fecal retention in the colon consistent with constipation. 6. Apparent wall thickening of the sigmoid colon, likely secondary to chronic inflammation. No current fat stranding to indicate acute inflammation. 7. Colonic diverticulosis without acute diverticulitis. Reading Location: [facility] CC: Dr. Evelyne Yang MD; Dr. Terry Rosenberg MD Infrastructure Manager: Signed Normal [facility] Absolute lymphocyte countOrd ered By: Terrysydni Rosenberg on 05-30-2025 Lymphocytes Auto (Unsp spec) [#/Vol] 2.88 10*3/uL 0.83-4.51 [facility] Absolute neutrophil countOrd ered By: [facility] on 05-30-2025 Neutrophils (Bld) [#/Vol] 7.5 10*3/uL 2.0-7.7 [facility] Anion gap in Serum or Plasma Ordered By: [facility] on 05-30-2025 Anion gap [Moles/Vol] 12 mmol/L 5-15 [facility] Automated lymphocyte count a s percentage of total leukocytesOrdered By: Terry Rosenberg on 05-30-2025 Lymphocytes/100 WBC Auto (Unsp spec) 25.9 % 19-41 [facility] BUN/creatinine ratioOrdered By: Terry Rosenberg on 05-30-2025 Urea nitrogen/Creatinine [Mass ratio] 22.2 mg/mg High 10-20 [facility] Basic Metabolic Profile (BMP )on 05-30-2025 BUN/CRE 22.2 RATIO High - [facility] Comment on above: Performed By: #### L 500.2500, L100.0100, L503.6005 #### [facility] Laboratory [address] [place], [address] Calcium [Mass/Vol] 11.0 mg/dL Normal 7.6-11.0 [facility] Comment on above: Performed By: #### L 500.2500, L100.0100, L503.6005 #### [facility] [address] [place], [address] Chloride [Moles/Vol] 103 mmol/L Normal 98-[address] [facility] Comment on above: Performed By: #### L 500.2500, L100.0100, L503.6005 #### [facility] [address] [place], [address] CO2 [Moles/Vol] 25.4 mmol/L Normal 21.0-32.0 [facility] Comment on above: Performed By: #### L 500.2500, L100.0100, L503.6005 #### [facility] [address] [place], [address] Creatinine [Mass/Vol] 0.76 mg/dL Normal 0.70-1.20 [facility] Comment on above: Performed By: #### L 500.2500, L100.0100, L503.6005 #### [facility] [address] [place], [address] ECRCL 68.18 ml/min Normal 50-250 [facility] Comment on above: Performed By: #### L 500.2500, L100.0100, L503.6005 #### [facility] [address] [place], [address] GAP 12 Normal 5-15 [facility] Comment on above: Performed By: #### L 500.2500, L100.0100, L503.6005 #### [facility] [address] [place], [address] GFR/1.73 sq M.predicted among non-blacks MDRD (S/P/Bld) [Vol rate/Area] 87 mL/min/{1.73_m2} Normal >60 [facility] Comment on above: Result Comment: mL/m in/1.73m2 CKD-EPI Creatinine Equation (2020) Performed By: #### L 500.2500, L100.0100, L503.6005 #### [facility] [address] [place], [address] Glucose [Mass/Vol] 103 mg/dL High 70-99 [facility] Comment on above: Performed By: #### L 500.2500, L100.0100, L503.6005 #### [facility] [address] [place], [address] Potassium [Moles/Vol] 3.9 mmol/L Normal 3.3-5.1 [facility] Comment on above: Performed By: #### L 500.2500, L100.0100, L503.6005 #### [facility] [address] [place], [address] Sodium [Moles/Vol] 141 mmol/L Normal 133-145 [facility] Comment on above: Performed By: #### L 500.2500, L100.0100, L503.6005 #### [facility] [address] [place], [address] Urea nitrogen [Mass/Vol] 17 mg/dL Normal 4-19 [facility] Comment on above: Performed By: #### L 500.2500, L100.0100, L503.6005 #### [facility] [address] [place], [address] Basophil percentageOrdered B y: Terry Rosenberg on 05-30-2025 Basophils/100 WBC (Bld) 0.6 % 0-1 [facility] CBC W/Diff, Automatedon 05-11 Absolute Lymph 2.88 X10 3/uL Normal 0.83-4.51 [facility] Comment on above: Performed By: #### L 500.2500, L100.0100, L503.6005 #### [facility] [address] [place], [address] Absolute Neut 7.5 X10 3/uL Normal 2.0-7.7 [facility] Comment on above: Performed By: #### L 500.2500, L100.0100, L503.6005 #### [facility] [address] [place], [address] Basophils/100 WBC (Bld) 0.6 % Normal 0-1 [facility] Comment on above: Performed By: #### L 500.2500, L100.0100, L503.6005 #### [facility] [address] [place], [address] Eosinophils/100 WBC (Bld) 1.0 % Normal 0-5 [facility] Comment on above: Performed By: #### L 500.2500, L100.0100, L503.6005 #### [facility] [address] [place], [address] Erythrocyte distribution width (RBC) [Ratio] 12.8 % Normal 11.6-14.6 [facility] Comment on above: Performed By: #### L 500.2500, L100.0100, L503.6005 #### [facility] [address] [place], [address] Hematocrit (Bld) [Volume fraction] 44.5 % Normal 37-47 [facility] Comment on above: Performed By: #### L 500.2500, L100.0100, L503.6005 #### [facility] [address] [place], [address] Hemoglobin (Bld) [Mass/Vol] 15.3 g/dL High 12.0-15.0 [facility] Comment on above: Performed By: #### L 500.2500, L100.0100, L503.6005 #### [facility] [address] [place], [address] IG% 0.300 Normal 0.0-0.9 [facility] Comment on above: Result Comment: IG% - Immature Granulocytes (promyelocytes, myelocytes and metamyelocytes) > 1% indicates that a LEFT SHIFT is Present. Performed By: #### L 500.2500, L100.0100, L503.6005 #### [facility] [address] [place], [address] Lymphocytes/100 WBC (Bld) 25.9 % Normal 19-41 [facility] Comment on above: Performed By: #### L 500.2500, L100.0100, L503.6005 #### [facility] [address] [place], [address] MCH (RBC) [Entitic mass] 31.1 pg Normal 27.0-32.0 [facility] Comment on above: Performed By: #### L 500.2500, L100.0100, L503.6005 #### [facility] [address] [place], [address] MCHC (RBC) [Mass/Vol] 34.4 g/dL Normal 32-36 [facility] Comment on above: Performed By: #### L 500.2500, L100.0100, L503.6005 #### [facility] [address] [place], [address] MCV (RBC) [Entitic vol] 90.4 fL Normal 81-99 [facility] Comment on above: Performed By: #### L 500.2500, L100.0100, L503.6005 #### [facility] [address] [place], [address] Monocytes/100 WBC (Bld) 4.9 % Normal 0-10 [facility] Comment on above: Performed By: #### L 500.2500, L100.0100, L503.6005 #### [facility] [address] [place], [address] Neutrophils/100 WBC (Bld) 67.3 % Normal 47-70 [facility] Comment on above: Performed By: #### L 500.2500, L100.0100, L503.6005 #### [facility] [address] [place], [address] Nucleated RBC (Bld) [#/Vol] 0 10*3/uL Normal 0-5 [facility] Comment on above: Performed By: #### L 500.2500, L100.0100, L503.6005 #### [facility] [address] [place], [address] Platelet mean volume (Bld) [Entitic vol] 10.5 fL Normal 6.2-12.0 [facility] Comment on above: Performed By: #### L 500.2500, L100.0100, L503.6005 #### [facility] [address] [place], [address] Platelets (Bld) [#/Vol] 219 10*3/uL Normal 150-450 [facility] Comment on above: Performed By: #### L 500.2500, L100.0100, L503.6005 #### [facility] [address] [place], [address] RBC (Bld) [#/Vol] 4.92 10*6/uL Normal 4.2-5.4 [facility] Comment on above: Performed By: #### L 500.2500, L100.0100, L503.6005 #### [facility] [address], [address] RDW SD 42.3 fl Normal 35.1-43.9 [facility] Comment on above: Performed By: #### L 500.2500, L100.0100, L503.6005 #### [facility] [address] [place], [address] WBC (Bld) [#/Vol] 11.1 10*3/uL High 4.4-11.0 [facility] Comment on above: Performed By: #### L 500.2500, L100.0100, L503.6005 #### [facility] [address] [place], [address] Carbon dioxide, total [Moles /volume] in Central venous bloodOrdered By: Terry Rosenberg on 05-30-2025 CO2 [Moles/Vol] 25.4 mmol/L 21.0-32.0 [facility] Chloride assayOrdered By: Ug o Chet on 05-30-2025 Chloride [Moles/Vol] 103 mmol/L 98-[address] [facility] Emergency Department Summary on 05-30-2025 Emergency Department Summary [facility] Medical Records Department [address] [place] [address] Emergency Department Summary 05/30/25 MR#: [id number] Acct: [id number] Name: NALLELY MERAZ Rep #: [id number] : 1960 65 From: Terry Rosenberg MD PCP: Dr. Evelyne Yang MD Status:REG ER Location: ED HPI HPI - GI History of Present Illness Chief Complaint: GI Bleed Detail of Chief Complaint: Lower abdominal pain and bloody diarrhea Informant: patient Abdominal Pain/Flank Pain Onset: Today (Diarrhea started today.) and Yesterday (Vomited twice yesterday) Context: Sudden Onset Timing: Intermittent and Waxes and wanes Quality: Cramping Location: RLQ and LLQ Current Severity: Mild Maximum Severity: Moderate Worsened by: - (Examination, deep palpation); Not Worsened By Food or Movement Relieved by: Nothing and Remaining Still; Not Relieved By Antacids or Food Nausea/Vomiting/Emesis GI Symptom: Positive for Nausea and Vomiting Onset: Yesterday Diarrhea/Melena/Hemato chezia GI Symptom: Positive for Diarrhea Onset: Today Stool Quality: Positive for Loose, Watery and BRB per rectum Associated Symptoms Associated Symptoms: Negative for Dysuria, Frequency, Hematuria or Urgency LMP: Postmenopausal Narrative Narrative: Patient is a 65-year-old woman. She has not had a colonoscopy in some time. She presents because of nausea and vomiting that occurred yesterday x 2. Today she reports lower cramping abdominal pain with diarrhea that is bloody. She has not been on any antibiotic in the past month. She does not know if she has history of diverticulosis. She denies weight gain or weight loss. She denies night sweats. She denies dysuria, frequency, urgency or hematuria. She denies low back pain or flank pain. She denies bone pain. She has not been around any ill contacts. She has no antibiotic allergies. She occasionally has an alcoholic beverage. Did not had an alcoholic beverage in over a month. Prior similar symptoms: No Recent Illness/Hospitalizatio n: No PFSH PFSH Medical History Hypertension Chronic headaches Cyst of breast Tobacco abuse Home Medications ???Medication ???Instructions ???Recorded ???Last Taken ???Type ciprofloxacin HCl 500 mg tablet 500 mg PO BID #14 TABLETS 05/30/25 Unknown Rx dicyclomine 10 mg capsule 20 mg (2 x 10 mg) PO TIDAC #20 Unknown Rx CAPSULES metronidazole 500 mg tablet 500 mg PO Q8H #21 tabs 05/30/25 Un known Rx [id number] 8 mg-folic 400 1 tab PO DAILY 05/30/25 05/29/25 History mcg-K 50 mcg-lutein 300 mcg tablet ([facility]) Allergy/AdvReac Type Severity Reaction Status Date / Time No Known Allergies Allergy Verified 05/30/25 10:43 Family History Father Myocardial infarction Hypertension Surgical History History of removal of cyst Social History Smoking Status: Current every day smoker tobacco type: cigarettes alcohol intake: current alcohol intake frequency: holidays/special occasions only substance use type: does not use what type of physical activity do you participate in: walking frequency: 3-4 times per week ROS ROS ED Constitutional Constitutional ED: Denies chills, fever(s), subjective, sweats or weight loss Cardiovascular Cardiovascular: Denies chest pain or palpitations Respiratory/Chest Respiratory/Chest: Denies cough, dyspnea or dyspnea on exertion Gastrointestinal Gastrointestinal: Reports abdominal pain, diarrhea, nausea, vomiting and other Details: Denies hematemesis or coffee-ground emesis. ; Denies constipation or melena Genitourinary Genitourinary ED: Denies dysuria, hematuria or urinary frequency Musculoskeletal Musculoskeletal: Denies back pain Integumentary Denies rash Neurologic Neurologic: Denies weakness Hematologic/Lymphatic Hematologic/Lymphatic: Denies easy bleeding or easy bruising EXAM Physical Exam Const Vital Signs: 05/30/25 10:41 05/30/25 11:28 05/30/25 12:44 Temperature 98 F Temperature Source Oral Pulse Rate 96 69 Pulse Rate [Lying] 77 Pulse Rate [Sitting (for 1 minute prior to obtaining)] 85 Pulse Rate [Standing (for 1 minute prior to obtaining)] 97 Respiratory Rate 16 19 H Blood Pressure 177/104 H 166/139 H Blood Pressure [Lying] 184/92 H Blood Pressure [Sitting (for 1 minute prior to obtaining)] 177/102 H Blood Pressure [Standing (for 1 minute prior to obtaining)] 174/105 H Blood Pressure Mean 128 148 Blood Pressure Mean [Lying] 122 Blood Pressure Mean [Sitting (for 1 minute prior to obtaining)] 127 Blood Pressure Mean [Standing (for 1 minute prior to obtainin (more content not included)... Normal [facility] Eosinophil percentageOrdered By: Terry Rosenberg on 05-30-2025 Eosinophils/100 WBC (Bld) 1.0 % 0-5 [facility] Erythrocyte distribution wid th ratioOrdered By: Terry Rosenberg on 05-30-2025 Erythrocyte distribution width (RBC) [Ratio] 12.8 % 11.6-14.6 [facility] Erythrocyte distribution wid th standard deviationOrdered By: Terrysydni Rosenberg on 05-30-2025 Erythrocyte distribution width (RBC) [Ratio] 42.3 fl 35.1-43.9 [facility] Glomerular filtration rate ( GFR) estimation/1.73 sq m using serum, plasma, or whole bOrdered By: Terry Rosenberg on 05-30-2025 GFR/1.73 sq M.predicted among non-blacks MDRD (S/P/Bld) [Vol rate/Area] 87 mL/min/{1.73_m2} >60 [facility] Comment on above: mL/min/1.73m2 CKD-EP I Creatinine Equation (2020) Hematocrit Auto (Bld) [Volum e fraction]Ordered By: Terry Rosenberg on 05-30-2025 Hematocrit (Bld) [Volume fraction] 44.5 % 37-47 [facility] Hemoglobin measurementOrdere d By: Terry Rosenberg on 05-30-2025 Hemoglobin (Bld) [Mass/Vol] 15.3 g/dL High 12.0-15.0 [facility] Immature granulocytes/100 WB C Auto (Bld)Ordered By: Terry Rosenberg on 05-30-2025 Immature granulocytes/100 WBC (Bld) 0.300 % 0.0-0.9 [facility] Comment on above: IG% - Immature Granu locytes (promyelocytes, myelocytes and metamyelocytes) > 1% indicates that a LEFT SHIFT is Present. Lactic Acidon 05-30-2025 Lactate [Moles/Vol] 1.2 mmol/L Normal 0.0-2.0 [facility] Comment on above: Order Comment: Y Performed By: #### L 500.2500, L100.0100, L503.6005 #### [facility] [address] [place] [address], [address] Lactic acid measurementOrder ed By: Terry Rosenberg on 05-30-2025 Lactate [Moles/Vol] 1.2 mmol/L 0.0-2.0 [facility] MCV (mean corpuscular volume ) determinationOrdered By: Terry Rosenberg on 05-30-2025 MCV (RBC) [Entitic vol] 90.4 fL 81-99 [facility] Mean corpuscular hemoglobin (MCH) determinationOrdered By: Terry Rosenberg on 05-30-2025 MCH (RBC) [Entitic mass] 31.1 pg 27.0-32.0 [facility] Mean corpuscular hemoglobin concentration (MCHC) determinationOrdered By: Terrysydni Rosenberg on 05-30-2025 MCHC (RBC) [Mass/Vol] 34.4 g/dL 32-36 [facility] Mean platelet volume determi nationOrdered By: Terry Rosenberg on 05-30-2025 Platelet mean volume (Bld) [Entitic vol] 10.5 fL 6.2-12.0 [facility] Monocyte percentageOrdered B y: Terry Rosenberg on 05-30-2025 Monocytes/100 WBC (Bld) 4.9 % 0-10 [facility] Neutrophil percentageOrdered By: Terrysydni Rosenberg on 05-30-2025 Neutrophils/100 WBC (Bld) 67.3 % 47-70 [facility] Nucleated red blood cell per centageOrdered By: Terry Rosenberg on 05-30-2025 Nucleated RBC/100 WBC (Bld) [Ratio] 0 % 0-5 [facility] Platelet countOrdered By: Brad Rosenberg on 05-30-2025 Platelets (Bld) [#/Vol] 219 10*3/uL 150-450 [facility] Potassium measurement (mass/ volume)Ordered By: Terrysydni Rosenberg on 05-30-2025 Potassium (Unsp spec) [Mass/Vol] 3.9 mmol/L 3.3-5.1 [facility] RBC Auto (Bld) [#/Vol]Ordere d By: Terry Rosenberg on 05-30-2025 RBC (Bld) [#/Vol] 4.92 10*6/uL 4.2-5.4 [facility] Serum creatinine measurement (mass/volume)Ordered By: Terry Rosenberg on 05-30-2025 Creatinine [Mass/Vol] 0.76 mg/dL 0.70-1.20 [facility] Serum glucose measurement (m ass/volume)Ordered By: Terry Rosenberg on 05-30-2025 Glucose [Mass/Vol] 103 mg/dL High 70-99 [facility] Serum or plasma calcium mihaela urement (mass/volume)Ordered By: Terry Rosenberg on 05-30-2025 Calcium [Mass/Vol] 11.0 mg/dL 7.6-11.0 [facility] Serum or plasma urea nitroge n measurement (mass/volume)Ordered By: Terrysydni Rosenberg on 05-30-2025 Urea nitrogen [Mass/Vol] 17 mg/dL 4-19 [facility] Sodium levelOrdered By: Terrysydni Rosenberg on 05-30-2025 Sodium [Moles/Vol] 141 mmol/L 133-145 [facility] Type AND Screenon 05-30-2025 ABO and Rh group Nom (Bld) Blood group B Rh(D) negative Normal [facility] Comment on above: Order Comment: HGI Performed By: #### B TS #### [facility] [address] [place], [address] White blood cell (WBC) count Ordered By: Terry Rosenberg on 05-30-2025 WBC (Bld) [#/Vol] 11.1 10*3/uL High 4.4-11.0 [facility] Basophil percentageon 2021 Chloride [Moles/Vol] 110 mmol/L 98-[address] [facility] Work Phone: Glucose [Mass/Vol] 122 mg/dL 74-106 [facility] Work Phone: Comment on above: Fasting Glucose resu lt from 100 to 125 mg/dL suggests IMPAIRED HOMEOSTASIS per A.D.A. criteria. Potassium [Moles/Vol] 4.0 mmol/L 3.5-5.1 [facility] Work Phone: Sodium [Moles/Vol] 143 mmol/L 136-145 [facility] Work Phone: WBC (Bld) [#/Vol] 8.3 10*3/uL 4.4-11.0 [facility] Work Phone: Blood erythrocytes count (nu mber/volume)on 10-01-2022 RBC (Bld) [#/Vol] 5.06 10*6/uL 4.2-5.4 [facility] Work Phone: Blood hemoglobin measurement (mass/volume)on 10-01-2022 Hemoglobin (Bld) [Mass/Vol] 15.8 g/dL 12.0-15.0 [facility] Work Phone: Blood platelet mean volumeon 10-01-2022 Platelet mean volume (Bld) [Entitic vol] 9.7 fL 6.2-12.0 [facility] Work Phone: Determination of erythrocyte mean corpuscular volume (MCV)on 10-01-2022 MCV (RBC) [Entitic vol] 92.3 fL 81-99 [facility] Work Phone: [phone] Hematocrit Auto (Bld) [Volum e fraction]on 10-01-2022 Hematocrit (Bld) [Volume fraction] 46.7 % 37-47 [facility] Work Phone: [phone] Laboratory - Chemistry and C hemistry - challengeon 10-01-2022 CO2 [Moles/Vol] 28.0 mmol/L 21.0-32.0 [facility] Work Phone: [phone] Urea nitrogen/Creatinine [Mass ratio] 18.9 mg/mg 10-20 [facility] Work Phone: [phone] Laboratory - Hematology and Cell countson 10-01-2022 Erythrocyte distribution width (RBC) [Entitic vol] 42.5 fL 35.1-43.9 [facility] Work Phone: [phone] Erythrocyte distribution width (RBC) [Ratio] 12.5 % 11.6-14.6 [facility] Work Phone: [phone] MCH (RBC) [Entitic mass] 31.2 pg 27.0-32.0 [facility] Work Phone: [phone] MCHC Auto (RBC) [Mass/Vol]on 10-01-2022 MCHC (RBC) [Mass/Vol] 33.8 g/dL 32-36 [facility] Work Phone: No Panel Informationon 10-01 Activated Clotting Time 225 sec 74-137 [facility] Work Phone: [phone] Estimated GFR (MDRD) Amer 94 mL/min >60 [facility] Work Phone: [phone] Comment on above: GFR Calc Estimated GFR (MDRD) Non-Af Amer 78 mL/min >60 [facility] Work Phone: [phone] Comment on above: Non- GFR Calc Platelets bldon 10-01-2022 Platelets (Bld) [#/Vol] 227 10*3/uL 150-450 [facility] Work Phone: Serum or plasma calcium mihaela urement (mass/volume)on 10-01-2022 Calcium [Mass/Vol] 9.5 mg/dL 8.5-10.1 [facility] Work Phone: Serum or plasma creatinine m easurement (mass/volume)on 10-01-2022 Creatinine [Mass/Vol] 0.79 mg/dL 0.55-1.02 [facility] Work Phone: Comment on above: The validity of the calculated GFR & GFRAA in patients over 70 years has not been determined. Clinical correlation is essential. Serum or plasma urea nitroge n measurement (mass/volume)on 10-01-2022 Urea nitrogen [Mass/Vol] 15 mg/dL 7-18 [facility] Work Phone: Thin prep Papanicolaou smear with manual screeningon 10-01-2022 Thin prep Papanicolaou smear with manual screening 5 5-15 [facility] Work Phone: Absolute lymphocyte counton 07-12-2022 Lymphocytes Auto (Unsp spec) [#/Vol] 2.52 10*3/uL 0.83-4.51 [facility] Work Phone: Basophil percentageon 2021 Basophils/100 WBC (Bld) 0.6 % 0-1 [facility] Work Phone: Bilirubin [Mass/Vol] 0.40 mg/dL 0.20-1.[address] [facility] Work Phone: Comment on above: For patients on eltr ombopag therapy, use of [employer] TBIL is not recommended. Chloride [Moles/Vol] 109 mmol/L 98-[address] [facility] Work Phone: Eosinophils/100 WBC (Bld) 2.1 % 0-5 [facility] Work Phone: Glucose [Mass/Vol] 117 mg/dL 74-106 [facility] Work Phone: Comment on above: Fasting Glucose resu lt from 100 to 125 mg/dL suggests IMPAIRED HOMEOSTASIS per A.D.A. criteria. Neutrophils (Bld) [#/Vol] 5.2 10*3/uL 2.0-7.7 [facility] Work Phone: Neutrophils/100 WBC (Bld) 61.2 % 47-70 [facility] Work Phone: Potassium [Moles/Vol] 4.1 mmol/L 3.5-5.1 [facility] Work Phone: Protein [Mass/Vol] 7.4 g/dL 6.4-8.2 [facility] Work Phone: Sodium [Moles/Vol] 143 mmol/L 136-145 [facility] Work Phone: WBC (Bld) [#/Vol] 8.4 10*3/uL 4.4-11.0 [facility] Work Phone: Blood erythrocytes count (nu mber/volume)on 07-12-2022 RBC (Bld) [#/Vol] 4.65 10*6/uL 4.2-5.4 [facility] Work Phone: Blood hemoglobin measurement (mass/volume)on 07-12-2022 Hemoglobin (Bld) [Mass/Vol] 14.6 g/dL 12.0-15.0 [facility] Work Phone: Blood lymphocytes/100 leukoc yteson 07-12-2022 Lymphocytes/100 WBC (Bld) 29.9 % 19-41 [facility] Work Phone: Blood monocytes/100 leukocyt eson 07-12-2022 Monocytes/100 WBC (Bld) 6.0 % 0-10 [facility] Work Phone: Blood platelet mean volumeon 07-12-2022 Platelet mean volume (Bld) [Entitic vol] 10.1 fL 6.2-12.0 [facility] Work Phone: Determination of erythrocyte mean corpuscular volume (MCV)on 07-12-2022 MCV (RBC) [Entitic vol] 93.1 fL 81-99 [facility] Work Phone: Hematocrit Auto (Bld) [Volum e fraction]on 07-12-2022 Hematocrit (Bld) [Volume fraction] 43.3 % 37-47 [facility] Work Phone: [phone] Laboratory - Chemistry and C hemistry - challengeon 07-12-2022 ALP [Catalytic activity/Vol] 58 U/L 45-117 [facility] Work Phone: [phone] ALT [Catalytic activity/Vol] 55 U/L 13-56 [facility] Work Phone: [phone] CO2 [Moles/Vol] 28.0 mmol/L 21.0-32.0 [facility] Work Phone: [phone] Globulin (S) [Mass/Vol] 3.7 g/dL 2.2-4.2 [facility] Work Phone: [phone] Urea nitrogen/Creatinine [Mass ratio] 18.8 mg/mg 10-20 [facility] Work Phone: [phone] Laboratory - Hematology and Cell countson 07-12-2022 Erythrocyte distribution width (RBC) [Entitic vol] 42.9 fL 35.1-43.9 [facility] Work Phone: [phone] Erythrocyte distribution width (RBC) [Ratio] 12.6 % 11.6-14.6 [facility] Work Phone: [phone] Immature granulocytes/100 WBC (Bld) 0.200 % 0.0-0.9 [facility] Work Phone: [phone] Comment on above: IG% - Immature Granu locytes (promyelocytes, myelocytes and metamyelocytes) > 1% indicates that a LEFT SHIFT is Present. MCH (RBC) [Entitic mass] 31.4 pg 27.0-32.0 [facility] Work Phone: [phone] Nucleated RBC/100 WBC (Bld) [Ratio] 0 % 0-5 [facility] Work Phone: [phone] MCHC Auto (RBC) [Mass/Vol]on 07-12-2022 MCHC (RBC) [Mass/Vol] 33.7 g/dL 32-36 [facility]: No Panel Informationon 07-12 Estimated GFR (MDRD) Amer 94 mL/min >60 [facility] Work Phone: Comment on above: GFR Calc Estimated GFR (MDRD) Non-Af Amer 77 mL/min >60 [facility] Work Phone: [phone] Comment on above: Non- GFR Calc Insulin Level 9.0 mU/L 2.6-37.6 [facility] Work Phone: [phone] Thyroid Stimulating Hormone (TSH) 2.91 uIU/mL 0.358-3.74 [facility] Work Phone: [phone] Vitamin D 25-Hydroxy 53.1 ng/mL [facility] Work Phone: [phone] Comment on above: Vitamin D 25(OH) Sta tus Range Deficiency <20 ng/mL (50nmol/L) Insufficiency 20 - 30 ng/mL (50 - 75 nmol/L) Sufficiency 30 - 100 ng/mL (75 - 250 nmol/L) Toxicity >100 ng/mL (>250 nmol/L) Platelets bldon 07-12-2022 Platelets (Bld) [#/Vol] 211 10*3/uL 150-450 [facility] Work Phone: [phone] Serum or plasma albumin mihaela urement (mass/volume)on 07-12-2022 Albumin [Mass/Vol] 3.7 g/dL 3.2-5.0 [facility] Work Phone: [phone] Serum or plasma albumin/glob ulin mass ratioon 07-12-2022 Albumin/Globulin [Mass ratio] 1.0 {ratio} 0.9-2.4 [facility] Work Phone: [phone] Serum or plasma calcium mihaela urement (mass/volume)on 07-12-2022 Calcium [Mass/Vol] 9.3 mg/dL 8.5-10.1 [facility] Work Phone: [phone] Serum or plasma creatinine m easurement (mass/volume)on 07-12-2022 Creatinine [Mass/Vol] 0.80 mg/dL 0.55-1.02 [facility] Work Phone: Comment on above: The validity of the calculated GFR & GFRAA in patients over 70 years has not been determined. Clinical correlation is essential. Serum or plasma urea nitroge n measurement (mass/volume)on 07-12-2022 Urea nitrogen [Mass/Vol] 15 mg/dL 7-18 [facility] Work Phone: Thin prep Papanicolaou smear with manual screeningon 07-12-2022 Thin prep Papanicolaou smear with manual screening 27 U/L 15-37 [facility] Work Phone: Thin prep Papanicolaou smear with manual screening 6 5-15 [facility] Work Phone: Whole blood hemoglobin A1c/t otal hemoglobin ratio (mass fraction)on 07-12-2022 HbA1c (Bld) [Mass fraction] 6.0 % 3.8-5.6 [facility] Work Phone: Comment on above: Normal < 5.7 % Predi abetic 5.7 - 6.4 % Diabetic >or= 6.5 % Please note range changes. CNOVon 04-26-2022 CNOV Office Visit (SWS ) NALLELY MERAZ ([id number]) 1960 F Date Time Provider Department 04/26/22 1:40 PM MARIELENA VILLEGAS During your visit today, we recorded the following information about you: Temperature Pulse Blood pressure Weight 98.1 degrees 94/minute 130/80 69.9 kg Height 1.702 m Marielena Villegas MD 04/27/2022 6:40 PM Signed FOLLOW UP VISIT NAME: Nallely Meraz CLINIC NO.: [id number] DATE OF SERVICE: 04/26/2022 : 1960 REFERRING PHYSICIAN: CRISTINA Crockett is s/p excision of infected sebaceous cyst on 04/22/2022. VITALS: Blood pressure 130/80, pulse 94, temperature 36.7 ?C (98.1 ?F), height 170.2 cm (5' 7), weight 69.9 kg (154 lb), last menstrual period 11/12/2012, SpO2 97 %. On examination, the wound is granulating well. Surrounding skin is normal. Assessment IMPRESSION: s/p excision of infected sebaceous cyst PLAN: Patient given instruction for wound care. Follow up as per needed. Diagnoses: (Z98.890) Status post skin and subcutaneous tissue surgery (primary encounter diagnosis) Marielena Villegas MD Referring Provider: Wayne MARTIN [[id number]] Allergies As of Date: 04/26/2022 (No Known Allergies) Date Reviewed: 04/26/2022 Reviewed by: Jessica Soriano LPN - Fully Assessed Reason for Visit: Follow Up [171] Cmt: abscess on left breast, remove packing Primary Visit Diagnosis:Status post skin and subcutaneous tissue surgery [Z98.890] Prescriptions as of 04/27/2022 - clindamycin (CLEOCIN) 300 mg capsule Take 1 capsule by mouth twice daily. - cyclobenzaprine (FLEXERIL) 5 mg tablet Take 1 tablet by mouth three times daily as needed for Muscle Spasm. - atorvastatin (LIPITOR) 40 mg tablet Take 1 tablet by mouth daily at bedtime. For cholesterol. - lisinopril (ZESTRIL, PRINIVIL) 20 mg tablet Take 1 tablet by mouth once daily. - hydroCHLOROthiazide (HYDRODIURIL, ESIDRIX) 25 mg tablet Take 1 tablet by mouth once daily. - Muslfqqedlthh-Ym-Mitc- Minerals (WOMEN'S DAILY MULTIVITAMIN) 18-0.4 mg ORAL Tab Take by mouth once daily. One daily - calcium, elemental, ORAL Tab Take 1 tablet by mouth twice daily. - Doran-3 Fatty Acids (FISH OIL) 500 mg ORAL Cap Take 1 capsule by mouth once daily. - cholecalciferol, vitamin D3, (VITAMIN D-3) 400 unit ORAL Cap Take 1 capsule by mouth once daily. Problem List As Of Date 04/26/2022 Noted Resolved Breast lump in female [N63.0] 03/09/2012 Amenorrhea [N91.2] 03/09/2012 Smoking 1/2 pack a day or less [F17.210] 03/09/2012 Back pain [M54.9] Routine physical examination [Z00.00] 01/08/2013 Hyperlipidemia [E78.5] Screening for colon cancer [Z12.11] 02/08/2013 Disposition: Return if symptoms worsen or fail to improve. Follow-up and Disposition History for Encounter Date Provider Department Center 04/[id number] Status:Closed by MARIELENA VILLEGAS on 04/27/22 Normal [facility] Vital Signs Date Time Vital Sign Value Performing Clinician Faci ale 05-30-2025 13:29-0400 Body temperature 98.6 [degF] Dr. Evelyne Yang MD Work Phone: [facility] 05-30-2025 13:29-0400 Diastolic blood pressure 80 mm[Hg] Dr. Evelyne Yang MD Work Phone: [facility] 05-30-2025 13:29-0400 Heart rate 84 /min Dr. Evelyne Yang MD Work Phone: [facility] 05-30-2025 13:29-0400 Respiratory rate 16 /min Dr. Evelyne Yang MD Work Phone: [facility] 05-30-2025 13:29-0400 SaO2% (BldA) [Mass fraction] 100 % Dr. Evelyne Yang MD Work Phone: [facility] 05-30-2025 13:29-0400 Systolic blood pressure 181 mm[Hg] Dr. Evelyne Yang MD Work Phone: [facility] 05-30-2025 10:41-0400 Body height 170.[address] Evelyne Yang MD Work Phone: [facility] 05-30-2025 10:41-0400 Body mass index (BMI) [Ratio] 25.2 kg/m2 Dr. Evelyne Yang MD Work Phone: [facility] 05-30-2025 10:41-0400 Body weight 73.[address] Evelyne Yang MD Work Phone: [facility] 10-01-2022 06:58-0500 Body height 170.[address] Lainey Solano Work Phone: [facility] Work Phone: 10-01-2022 06:58-0500 Body weight 71.[address] Lainey Solano Work Phone: [facility] Work Phone: 10-01-2022 06:47-0500 Body mass index (BMI) [Ratio] 24.7 kg/m2 Dr. Lainey Solano Work Phone: [facility] Work Phone: 09-03-2022 14:52-0400 Body height 170.[address] Lainey Solano Work Phone: [facility] Work Phone: 09-03-2022 14:52-0400 Body mass index (BMI) [Ratio] 24.7 kg/m2 Dr. Lainey Solano Work Phone: [facility] Work Phone: 09-03-2022 14:52-0400 Body temperature 97.4 [degF] Dr. Lainey Solano Work Phone: [facility] Work Phone: 09-03-2022 14:52-0400 Body weight 71.[address] Lainey Solano Work Phone: [facility] Work Phone: 09-03-2022 14:52-0400 Diastolic blood pressure 83 mm[Hg] Dr. Lainey Solano Work Phone: [facility] Work Phone: 09-03-2022 14:52-0400 Heart rate 85 /min Dr. Lainey Solano Work Phone: [facility] Work Phone: 09-03-2022 14:52-0400 Respiratory rate 17 /min Dr. Lainey Solano Work Phone: [facility] Work Phone: 09-03-2022 14:52-0400 SaO2% (BldA) [Mass fraction] 96 % Dr. Lainey Solano Work Phone: [facility] Work Phone: 09-03-2022 14:52-0400 Systolic blood pressure 134 mm[Hg] Dr. Lainey Solano Work Phone: [facility] Work Phone: 07-08-2022 08:55-0400 Body height 167.[address] Lainey Solano Work Phone: [facility] Work Phone: 07-08-2022 08:55-0400 Body mass index (BMI) [Ratio] 25.3 kg/m2 Dr. Lainey Solano Work Phone: [facility] Work Phone: 07-08-2022 08:55-0400 Body temperature 98.6 [degF] Dr. Lainey Solano Work Phone: [facility] Work Phone: 07-08-2022 08:55-0400 Body weight 71.[address] Lainey Solano Work Phone: [facility] Work Phone: 07-08-2022 08:55-0400 Diastolic blood pressure 84 mm[Hg] Dr. Lainey Solano Work Phone: [facility] Work Phone: 07-08-2022 08:55-0400 Heart rate 62 /min Dr. Lainey Solano Work Phone: [facility] Work Phone: 07-08-2022 08:55-0400 Respiratory rate 14 /min Dr. Lainey Solano Work Phone: [facility] Work Phone: 07-08-2022 08:55-0400 SaO2% (BldA) [Mass fraction] 95 % Dr. Lainey Solano Work Phone: [facility] Work Phone: 07-08-2022 08:55-0400 Systolic blood pressure 132 mm[Hg] Dr. Lainey Solano Work Phone: [facility] Work Phone: 04-26-2022 13:50-0400 Body height 170.2 cm Marielena Villegas MD Work Phone: [facility] 04-26-2022 13:50-0400 Body temperature 98.1 [degF] Marielena Villegas MD Work Phone: [facility] 04-26-2022 13:50-0400 Body weight 69.85 kg Marielena Villegas MD Work Phone: [facility] 04-26-2022 13:50-0400 Diastolic blood pressure 80 mm[Hg] Marielena Villegas MD Work Phone: [facility] 04-26-2022 13:50-0400 Heart rate 94 /min Marielena Villegas MD Work Phone: [facility] 04-26-2022 13:50-0400 SaO2% (BldA) [Mass fraction] 97 % Marielena Villegas MD Work Phone: [facility] 04-26-2022 13:50-0400 Systolic blood pressure 130 mm[Hg] Marielena Villegas MD Work Phone: [facility] 04-22-2022 09:23-0400 Body height 170.2 cm Marielena Vlilegas MD Work Phone: [facility] 04-22-2022 09:23-0400 Body temperature 96.8 [degF] Marielena Villegas MD Work Phone: [facility] 04-22-2022 09:23-0400 Body weight 70.76 kg Marielena Villegas MD Work Phone: [facility] 04-22-2022 09:23-0400 Diastolic blood pressure 86 mm[Hg] Marielena Villegas MD Work Phone: [facility] 04-22-2022 09:23-0400 Heart rate 77 /min Marielena Villegas MD Work Phone: [facility] 04-22-2022 09:23-0400 SaO2% (BldA) [Mass fraction] 98 % Marielena Villegas MD Work Phone: [facility] 04-22-2022 09:23-0400 Systolic blood pressure 140 mm[Hg] Marielena Villegas MD Work Phone: [facility] 04-16-2022 12:57-0400 Body weight 69.[address] TEAM MEMBER.INTERNAL COMBUSTION ENGINE SUBASSEMBLER Work Phone: [facility] 04-16-2022 12:57-0400 Diastolic blood pressure 84 mm[Hg] Carmen Haagen FOOD COURT TEAM MEMBER.INTERNAL COMBUSTION ENGINE SUBASSEMBLER Work Phone: [facility] 04-16-2022 12:57-0400 Heart rate 69 /min Carmen Haagen [address] TEAM MEMBER.INTERNAL COMBUSTION ENGINE SUBASSEMBLER Work Phone: [facility] 04-16-2022 12:57-0400 Respiratory rate 18 /min Carmen Haagen FO[address] TEAM MEMBER.INTERNAL COMBUSTION ENGINE SUBASSEMBLER Work Phone: [facility] 04-16-2022 12:57-0400 SaO2% (BldA) [Mass fraction] 98 % Carmen Haagen FOOD COURT TEAM MEMBER.INTERNAL COMBUSTION ENGINE SUBASSEMBLER Work Phone: [facility] 04-16-2022 12:57-0400 Systolic blood pressure 126 mm[Hg] Carmen Haagen FOOD COURT TEAM MEMBER.INTERNAL COMBUSTION ENGINE SUBASSEMBLER Work Phone: [facility] Encounters Encounter Date Encounter Type Care Provider Facility Start: 08-12-2025 ambulatory Magan Friend Facility :[facility] Start: 06-02-2025 End: 06-02-[address] Evelyne Yang MD Work Phone: -Laboratory Specimen Start: 06-02-2025 End: 06-02-2025 Patient encounter procedure Lindsey LEONARDO -Laboratory Specimen Work Phone: Start: 06-02-2025 End: 06-02-2025 ambulatory Lindsey Aguilar Facility:[facility] Start: 05-31-2025 End: 05-31-2025 Patient encounter procedure Lindsey LEONARDO -[facility] Work Phone: Start: 05-31-2025 End: 05-31-[address] Evelyne Yang MD Work Phone: -[facility] Start: 05-30-2025 End: 05-30-2025 Emergency department patient visit Dr. Evelyne Yang MD Work Phone: -Emergency Department Work Phone: Start: 10-01-2022 Non-patient / Non-visit Dr. Mihaela Solano Work Phone: [facility] Start: 10-01-2022 End: 10-01-2022 Admission to same day surgery center Dr. Lainey Solano Work Phone: [facility]-Manufacturing Engineering Technician/Special Procedures Start: 10-01-2022 End: 10-01-[address] Lainey Solano Work Phone: [facility] Work Phone: Start: 09-20-2022 Non-patient / Non-visit Dr. Mihaela Solano Work Phone: [facility] Start: 09-20-2022 End: 09-20-[address] Lainey Solano Work Phone: [facility] Work Phone: Start: 09-20-2022 End: 09-20-[address] Lainey Solano Work Phone: [facility]-Cardiovascular Services Start: 09-06-2022 End: 09-06-[address] Lainey Solano Work Phone: [facility] Work Phone: Start: 09-06-2022 End: 09-06-[address] Lainey Solano Work Phone: [facility]-Pulmonary Services/Neurology Start: 09-03-2022 End: 09-03-[address] Lainey Solano Work Phone: [facility] Start: 08-21-2022 Non-patient / Non-visit Dr. Mihaela Solano Work Phone: [facility] Start: 08-21-2022 End: 08-21-[address] [facility] Start: 07-12-2022 End: 07-12-[address] Lainey Solano Work Phone: [facility] Work Phone: Start: 07-12-2022 End: 07-12-[address] Lainey Solano Work Phone: [facility]-Laboratory Start: 07-08-2022 End: 07-08-[address] Lainey Solano Work Phone: [facility] Start: 05-08-2022 ambulatory Wayne LEONARDO-C Work Phone: Internal Medicine [facility] Start: 04-26-2022 End: 04-26-2022 ambulatory Wayne MARTIN Facility:[facility] Start: 04-26-2022 End: 04-26-2022 Patient encounter procedure Marielena Villegas MD Work Phone: General Surgery Comment on above: Status post skin and subcutaneous tissue surgery (Primary Dx) Start: 04-22-2022 End: 04-22-2022 Patient encounter procedure Marielena Villegas MD Work Phone: General Surgery Comment on above: Infected sebaceous c yst Start: 04-16-2022 End: 04-16-2022 Patient encounter procedure Carmen Lyon APRN.INTERNAL COMBUSTION ENGINE SUBASSEMBLER Work Phone: [facility] Comment on above: Cyst of left breast (Primary Dx) Start: 01-08-2013 Physical examination Carmen capellan APRN.INTERNAL COMBUSTION ENGINE SUBASSEMBLER Work Phone: [facility] Work Phone: Procedures Date Procedure Procedure Detail Performing Clinician Start: 06-02-[address] Evelyne Yang MD Work Phone: Start: 06-02-[address] Evelyne laguerre MD Work Phone: Start: 05-30-[address] Evelyne Yang MD Work Phone: Start: 05-30-2025 Computed tomography of abdomen and pelvis with intravenous contrast Dr. Evelyne Yang MD Work Phone: Start: 04-13-2019 Mammography Carmen Lyon APRN.INTERNAL COMBUSTION ENGINE SUBASSEMBLER Work Phone: Start: 01-07-2019 Adult depression screening assessment Carmen Lyon APRN.INTERNAL COMBUSTION ENGINE SUBASSEMBLER Work Phone: Start: 02-01-2013 Colonoscopy Carmen Lyon APRN.INTERNAL COMBUSTION ENGINE SUBASSEMBLER Work Phone: H/O: surgery Status post skin and subcutaneous tissue surgery Marielena Villegas MD Work Phone: Plan of Treatment Date Care Activity Detail Author Start: 06-02-2025 Giardia Antigen (JANA) Giardia Antige n (JANA) [facility] Start: 06-02-2025 Ova and Parasites Ova and Parasites [facility] Start: 06-02-2025 [facility] Start: 05-30-2025 [facility] Start: 05-30-2025 [facility] Start: 04-09-2024 LIPID SCREEN LIPID SCREEN [facility] Start: 02-01-2023 Colonoscopy COLONOSCOPY [facility] Start: 02-01-2023 COLORECTAL CANCER SCREENING COLORECTAL CANCER SCREENING [facility] Start: 01-08-2023 Urine microalbumin profile DTAP,TDAP,TD (2 - Td or Tdap) [facility] Start: 07-11-2022 Influenza vaccination C [facility] Start: 04-09-2022 DIABETES SCREEN DIABETES SCREEN [facility] Start: 04-13-2020 Mammography MAMMOGRAM [facility] Start: 04-09-2020 PNEUMOCOCCAL (2 - PP SV23 or PCV20) PNEUMOCOCCAL (2 - PPSV23 or PCV20) [facility] Start: 01-07-2020 Adult depression screening assessment DEPRESSION SCREENING [facility] Start: 02-21-2016 PAP TESTING PAP TESTING [facility] Start: 2010 SHINGRIX VACCINE (1 of 2) SPRAGUE GRIX VACCINE (1 of 2) [facility] Start: 2005 COLOGUARD (FIT-DNA) COLOGUARD (FIT-D NA) [facility] Start: [address] COLONOGRAPHY [facility] Start: 2005 FECAL OCCULT BLOOD FECAL OCCULT BLOO D [facility] Start: 2005 SIGMOIDOSCOPY SIGMOIDOSCOPY [facility] Start: 1990 HPV TESTING HPV TESTING [facility] Start: 1978 HIV SCREENING HIV SCREENING [facility] Start: 1965 COVID-19 VACCINE (#1) COVID-19 VACCI NE (#1) [facility] Start: 1960 COVID-19 VACCINE (#1) COVID-19 VACCI NE (#1) [facility] Ankle brachial press ure index [facility] Work Phone: Clostridioides diffi cile DNA [Presence] in Unspecified specimen by SARAH with probe detection [facility] Doppler ultrasonogra phy of aorta [facility] Work Phone: Giardia lamblia Ag [Presence] in Stool by Immunoassay [facility] Giardia lamblia anti gen assay [facility] Lactoferrin [Presenc e] in Stool by Immunoassay [facility] Ova OR parasites identification [facility] Ova OR parasites identification [facility] Patient Education ED Diarrhea, U nknown Cause [facility] Work Phone: Protein measurement [facility] End: 06-07-2023 Screening mammography bi 2-view breast inc cad HANK SCREENING Radiology Routine Encounter for screening mammogram for breast cancer 1 Occurrences starting 05/08/2022 until 06/07/2023 [facility] Work Phone: Comment on above: 1 Occurrences starti ng 05/08/2022 until 06/07/2023 US Carotid arteries [facility] Work Phone: [facility] Immunizations Immunization Date Immunization Notes Care Provider Fa felixty 04-09-2019 pneumococcal conjuga te vaccine, 13 valent Carmen Haagen [address] TEAM MEMBER.INTERNAL COMBUSTION ENGINE SUBASSEMBLER Work Phone: [facility] Work Phone: 08-10-[address] Lainey Solano Work Phone: [facility] 01-08-2013 tetanus toxoid, redu heide diphtheria toxoid, and acellular pertussis vaccine, adsorbed Acrmen Haagen FOOD COURT TEAM MEMBER.INTERNAL COMBUSTION ENGINE SUBASSEMBLER Work Phone: [facility] Payers Date Payer Category Payer Medicare [id number] 2025 Private Health Insurance [id number] 2025 Self-pay [id number] 2017 Private Health Insurance [employer] A ETNA CHOICE POS II [id number] 2017-Present [phone] [address] [place] [address] POS [id number] 2011 Private Health Insurance [id number] Unknown [id number] Unknown [id number] Unknown [id number] Unknown [id number] Unknown [id number] Social History Date Type Detail Facility Start: 03-09-2012 End: 05-30-2025 Tobacco smoking status NHIS Smokes tobacco daily [facility] Work Phone: History of tobacco use Cigarette Smoker C [facility] Work Phone: Start: 03-09-2012 End: 04-26-2022 Cigarettes smoked current (pack per day) - Reported 0.5 [facility] Start: 03-09-2012 Tobacco use and exposure Smokeless tobacco non-user [facility] Work Phone: Start: 04-16-2022 End: 04-26-2022 Alcohol intake Current drinker of alcohol (finding) [facility] Start: 01-08-2013 Tobacco Comment started smokin g 22yo usually 1/2 PPD (10+pkyr) [facility] Start: 1960 Sex Assigned At Not on file [facility] Start: 04-05-2022 End: 04-26-2022 Exposure to SARS-CoV-2 (event) Not sure [facility] Start: 07-08-2022 End: 10-01-2022 Tobacco smoking status CTIS Unknown if ever smoked [facility] Work Phone: Start: 04-10-2014 Rare [facility] Start: 03-02-2019 None [facility] Start: 03-02-2019 Spouse/ Signif icant Other [facility] Start: 1960 Sex Assigned At Female W [facility] Medical Equipment Procedure Code Equipment Code Equipment Origin al Text Equipment Identifier Dates Femoral vessel s uture implantation set [id number] [facility] Start: 10-01-2022 Clinical Notes 04-16-2022 to 05-31-2025 Note Date & Type Note Facility 05-31-2025 Evaluation note Diagnosis Onset Date Resolution Bloody diarrhea inactive May 11:23am Colon wall thickening inactive May 11:23am [facility] Work Phone: 1(792) 988-149207-21-2025 Discharge summary [facility] Medical Records Department [address] [place] [address] Emergency Department Summary 05/30/25 MR#: [id number] Acct: [id number] Name: NALLELY MERAZ Rep #:[id number] : 1960 65 From: Terry Rosenberg MD PCP: Dr. Evelyne Yang MD Status:REG ER Location: ED HPI HPI - GI History of Present Illness Chief Complaint: GI Bleed Detail of Chief Complaint: Lower abdominal pain and bloody diarrhea Informant: patient Abdominal Pain/Flank Pain Onset: Today (Diarrhea started today.) and Yesterday (Vomited twice yesterday) Context: Sudden Onset Timing: Intermittent and Waxes and wanes Quality: Cramping Location: RLQ and LLQ Current Severity: Mild Maximum Severity: Moderate Worsened by: - (Examination, deep palpation); Not Worsened By Food or Movement Relieved by: Nothing and Remaining Still; Not Relieved By Antacids or Food Nausea/Vomiting/Emesis GI Symptom: Positive for Nausea and Vomiting Onset: Yesterday Diarrhea/Melena/Hematochezia GI Symptom: Positive for Diarrhea Onset: Today Stool Quality: Positive for Loose, Watery and BRB per rectum Associated Symptoms Associated Symptoms: Negative for Dysuria, Frequency, Hematuria or Urgency LMP: Postmenopausal Narrative Narrative: Patient is a 65-year-old woman. She has not had a colonoscopy in some time. She presents because ofnausea and vomiting that occurred yesterday x 2. Today she reports lower cramping abdominal pain with diarrhea that is bloody. She hasnot been on any antibiotic in the past month. She does not know if she has history of diverticulosis. She denies weight gain or weight loss. She denies night sweats.She denies dysuria, frequency, urgency or hematuria. She denies low back pain or flank pain. She denies bone pain. She has not been around anyill contacts. She has no antibiotic allergies. She occasionally has an alcoholic beverage. Did not had an alcoholic beverage in over a month. Prior similar symptoms: No Recent Illness/Hospitalization: No PFSH PFSH Medical History Hypertension Chronic headaches Cyst of breast Tobacco abuse Home Medications ?Medication ?Instructions ?Recorded ?Last Taken ?Type ciprofloxacin HCl 500 mg tablet 500 mg PO BID #14 TABL ETS 05/30/25 Unknown Rx dicyclomine 10 mg capsule 20 mg (2 x 10 mg) PO TIDAC # 20 05/30/25 Unknown Rx CAPSULES metronidazole 500 mg tablet 500 mg PO Q8H #21 tabs Unknown Rx vqfqjzfk-auek-iart 8 mg-folic 400 1 tab PO DAILY 05/3005/29/25 History mcg-K 50 mcg-lutein 300 mcg tablet ([facility]) Allergy/AdvReac Type Severity Reaction Status Date / Time No Known Allergies Allergy Verified 05/30/25 10:43 Family History Father Myocardial infarction Hypertension Surgical History History of removal of cyst Social History Smoking Status: Current every day smoker tobacco type: cigarettes alcohol intake: current alcohol intake frequency: holidays/special occasions only substance use type: does not use what type of physical activity do you participate in: walking frequency: 3-4 times per week ROS ROS ED Constitutional Constitutional ED: Denies chills, fever(s), subjective, sweats or weight loss Cardiovascular Cardiovascular: Denies chest pain or palpitations Respiratory/Chest Respiratory/Chest: Denies cough, dyspnea or dyspnea on exertion Gastrointestinal Gastrointestinal: Reports abdominal pain, diarrhea, nausea, vomiting and other Details: Denies hematemesis or coffee-ground emesis. ; Denies constipation or melena Genitourinary Genitourinary ED: Denies dysuria, hematuria or urinary frequency Musculoskeletal Musculoskeletal: Denies back pain Integumentary Denies rash Neurologic Neurologic: Denies weakness Hematologic/Lymphatic Hematologic/Lymphatic: Denies easy bleeding or easy bruising EXAM Physical Exam Const Vital Signs: 05/30/25 10:41 05/30/25 11:05/30/25 12:44 Temperature 98 F Temperature Source Oral Pulse Rate 96 69 Pulse Rate [Lying] 77 Pulse Rate [Sitting (for 1 minute prior to obtaining)] 85 Pulse Rate [Standing (for 1 minute prior to obtaining)] 97 Respiratory Rate 16 19 H Blood Pressure 177/104 H 166/139 H Blood Pressure [Lying] 184/92 H Blood Pressure [Sitting (for 1 minute prior to obtaining)] 177/102 H Blood Pressure [Standing (for 1 minute prior to obtaining)] 174/105 H Blood Pressure Mean 128 148 Blood Pressure Mean [Lying] 122 Blood Pressure Mean [Sitting (for 1 minute prior to obtaining)] 127 Blood Pressure Mean [Standing (for 1 minute prior to obtaining)] 128 Pulse Ox 98 99 Oxygen Delivery Method Room Air Room Air Positive well nourished and well developed Constitutional Narrative: Orthostatic vital signs negative. General Appearance ED: well developed; Negative for pallor HEENT Reports TM's clear and dry mucous membranes normocephalic and atraumatic Tympanic Membrane ED: Yes TM's clear Mouth ED: Yes dry mucous membranes Mouth: dry mucous membranes Eyes PERRL and EOMs intact bilaterally General Eye ED: Negative for pale conjunctiva or scleral icterus Neck no lymphadenopathy, supple and no JVD Resp normal respiratory effort and clear to auscultation bilaterally Cardio regular rate, regular rhythm, S1 normal heart sound, S2 normal heart sound and no murmurs GI non-distended and no masses; Negative for non-tender Auscultation: hypoactive bowel sounds Palpation: soft and tender LLQ and RLQ; Negative for guarding, rigid, hepatomegaly, splenomegaly, hernia, mass or pulsatile mass Back/Spine no CVA tenderness Extremity full ROM General Extremety ED: Negative for edema or tenderness General Extremity: Negative for edema Neuro CN's II-XII intact bilaterally and moves all extremities Sensorium / Orientation: alert Psych mental status grossly normal Skin no wounds General Skin Exam: Negative for jaundice or pallor Lesions: no lesions Rashes: no rashes MDM MDM MDM Narrative Medical decision making narrative: With bloody diarrhea cramping abdominal pain need to consider infectious etiology, ischemic colitis, atypical presentation for diverticulitis. Will obtain blood work to assess white count, H&H electrolyte panel to assess renal function and electrolytes and specifically hypokalemia. Since she had blood on rectal exam with moist she watery stool she was typed and screened and orthostatic vital signs were obtained. Lab Data Attestation: I reviewed the patient's lab results. Lab results narrative: CBC is remarkable slight elevated white count. Differential is normal. Basic metabolic panel is unremarkable. Lactate is normal. Labs: Laboratory Results - last 24 hr 05/30/25 11:24 WBC 11.1 H RBC 4.92 Hgb 15.3 H Hct 44.5 MCV 90.4 MCH 31.1 MCHC 34.4 RDW Std Deviation 42.3 RDW Coeff of Angy 12.8 Plt Count 219 MPV 10.5 Immature Gran % (Auto) 0.300 Neut % (Auto) 67.3 Lymph % (Auto) 25.9 [place] % (Auto) 4.9 Eos % (Auto) 1.0 Baso % (Auto) 0.6 Absolute Neuts (auto) 7.5 Absolute Lymphs (auto) 2.88 Nucleated RBC % 0 Sodium 141 Potassium 3.9 Chloride 103 Carbon Dioxide 25.4 Anion Gap 12 BUN 17 Creatinine 0.76 Estim Creat Clear Calc 68.18 Est GFR (MDRD) Non-Af 87 BUN/Creatinine Ratio 22.2 H Glucose 103 H Lactic Acid 1.2 Calcium 11.0 Blood Type B NEGATIVE Antibody Screen NEGATIVE Radiography Diagnostic Testing: Clinical Impression(s) from Imaging Studies Abdomen/Pelvis CT 05/30/25 11:17 IMPRESSION: 1. Small esophageal hiatal hernia. 2. Hepatomegaly with fatty infiltration. 3. No obstructive uropathy. 4. Umbilical hernia containing fat. 5. Fecal retention in the colon consistent with constipation. 6. Apparent wall thickening of the sigmoid colon, likely secondary to chronic inflammation. No current fat stranding to indicate acute inflammation. 7. Colonic diverticulosis without acute diverticulitis. Reading Location: [facility] CT was reviewed. In light of the thickening of the sigmoid colon and no recent colonoscopy outpatient appointment was made to see Dr. Borja for colonoscopy. She was treated with metronidazole and ciprofloxacin. She also had other abnormalities. These would not explain her symptoms. She also has evidence of constipation per the radiologist which I am in agreement. I wonder if she is actually having diarrhea around the fecal load. Discharge Plan Triage Chief Complaint: GI Bleed ED Provider: Brad Rosenbergo Dx/Rx/DC Orders Clinical Impression: Bloody diarrhea, Colon wall thickening, Elevated blood pressure reading with diagnosis of hypertension, Encopresis, Abdominal cramping, bilateral lower quadrant Instructions: ED Diarrhea, Unknown Cause Prescriptions: New metronidazole 500 mg tablet 500 mg PO Q8H Qty: 21 0RF ciprofloxacin HCl 500 mg tablet 500 mg PO BID Qty: 14 0RF dicyclomine 10 mg capsule 20 mg PO TIDAC Qty: 20 0RF No Action [facility] 8 mg iron-400 mcg-50 mcg tablet 1 tab PO DAILY Primary Care Provider: Evelyne Yang Referrals: Evelyne Yang MD [Primary Care Provider] - Friend,DO Magan [Med Staff - Active Staff] - Keep Jacobo appointment Print Language: Yemeni Disposition Disposition: Home, Self Care What to do if you have Problems For any increased pain, shortness of breath, bleeding, nausea or vomiting, chestpain, or any unexpected problems, contact your Primary Care Provider. Call [facility] ([phone]) or report tothe closest Emergency Room. Call 911 if necessary. 05/30/25 1324 Cosigner Signature (if applicable): CC: Dr. Evelyne Yang MD ~ Signed [facility]07-21-2025 Radiology Diagnostic study note [facility] Imaging Services [address] [place] [address] [id number] Abdomen/Pelvis W IV Cont ONLY MR#: [id number] Acct: [id number] Name: NALLELY MERAZ Rep #: [id number] : 1960 F 65 From: Kanika Meyer MD PCP: Dr. Evelyne Yang MD Status: REG ER Study:Abdomen/Pelvis W IV Cont ONLY Date of E xam: 05/30/25 Exam# [id number] Ordering Dr: Brad Rosenberg MD EXAM: CT Abdomen and Pelvis With Intravenous Contrast CLINICAL INDICATION: BLOODY DIARRHEA AND LOWER CRAMPING ABDOMINAL PAIN TECHNIQUE: Axial computed tomography images of the abdomen and pelvis with intravenous contrast. This CT exam was performed using one or more of the following dose reduction techniques: automated exposure control, adjustment of the mA and/or kV according to patient size, and/or use of iterative reconstruction technique. COMPARISON: No relevant prior studies available. FINDINGS: LUNG BASES: Unremarkable. No mass. No consolidation. MEDIASTINUM: Small esophageal hiatal hernia. ABDOMEN: LIVER: Hepatomegaly with fatty infiltration. GALLBLADDER AND BILE DUCTS: Unremarkable. No calcified stones. No ductal dilation. PANCREAS: Unremarkable. No mass. No ductal dilation. SPLEEN: Unremarkable. No splenomegaly. ADRENALS: Unremarkable. No mass. KIDNEYS AND URETERS: Bilateral renal cysts, largest measuring up to 4.5 cm. Nostones within either kidney. No hydronephrosis. STOMACH AND BOWEL: Fecal retention in the colon consistent with constipation. Apparent wall thickening of the sigmoid colon, likely secondary to chronic inflammation. No current fat stranding to indicate acute inflammation. Colonic diverticulosis without acute diverticulitis. No obstruction. PELVIS: APPENDIX: No findings to suggest acute appendicitis. BLADDER: Unremarkable. No mass. REPRODUCTIVE: Unremarkable as visualized. ABDOMEN and PELVIS: INTRAPERITONEAL SPACE: Unremarkable. No free air. No significant fluid collection. BONES/JOINTS: Multilevel endplate degenerative change and disc disease of the visualized spine, most prominent at L3-4. No acute fracture. No dislocation. SOFT TISSUES: Umbilical hernia containing fat. VASCULATURE: Scattered calcified atherosclerotic disease of aorta. No abdominal aortic aneurysm. LYMPH NODES: Unremarkable. No enlarged lymph nodes. CT/Abdomen/Pelvis W IV Cont ONLY IMPRESSION: 1. Small esophageal hiatal hernia. 2. Hepatomegaly with fatty infiltration. 3. No obstructive uropathy. 4. Umbilical hernia containing fat. 5. Fecal retention in the colon consistent with constipation. 6. Apparent wall thickening of the sigmoid colon, likely secondary to chronic inflammation. No current fat stranding to indicate acute inflammation. 7. Colonic diverticulosis without acute diverticulitis. Reading Location: [facility] CC: Dr. Evelyne Yang MD; Dr. Terry Rosenberg MD ~ Infrastructure Manager: Signed [facility]06-07-2023 NotePatient Outreach (INTMMN) NALLELY MERAZ ([id number]) 1960 F Date Time Provider Department 04/16/23 Wayne MARTIN INTLINK During your visit today, we recorded the following information about you: Allergies As of Date: 04/16/2023 (No Known Allergies) Date Reviewed: 04/26/2022 Reviewed by: Jessica Soriano LPN - Fully Assessed Visit Diagnosis:Encounter for screening mammogram for breast cancer [Z12.31] Order(s):[facility] SCREENING [[id number]] Order #: [id number] FUTURE Prescriptions as of 04/21/2023 - clindamycin (CLEOCIN) 300 mg capsule Take 1 capsule by mouth twice daily. - cyclobenzaprine (FLEXERIL) 5 mg tablet Take 1 tablet by mouth three times daily as needed for Muscle Spasm. - atorvastatin (LIPITOR) 40 mg tablet Take 1 tablet by mouth daily at bedtime. For cholesterol. - lisinopril (ZESTRIL, PRINIVIL) 20 mg tablet Take 1 tablet by mouth once daily. - hydroCHLOROthiazide (HYDRODIURIL, ESIDRIX) 25 mg tablet Take 1 tablet by mouth once daily. - Sbfxaloznhgmi-Xy-Mxkp-Minerals (WOMEN'S DAILY MULTIVITAMIN) 18-0.4 mg ORAL Tab Take by mouth once daily. One daily - calcium, elemental, ORAL Tab Take 1 tablet by mouth twice daily. - Doran-3 Fatty Acids (FISH OIL) 500 mg ORAL Cap Take 1 capsule by mouth once daily. - cholecalciferol, vitamin D3, (VITAMIN D-3) 400 unit ORAL Cap Take 1 capsule by mouth once daily. Problem List As Of Date 04/16/2023 Noted Resolved Breast lump in female [N63.0] 03/09/2012 Amenorrhea [N91.2] 03/09/2012 Smoking 1/2 pack a day or less [F17.210] 03/09/2012 Back pain [M54.9] Routine physical examination [Z00.00] 01/08/2013 Hyperlipidemia [E78.5] Screening for colon cancer [Z12.11] 02/08/2013 Encounter Status:Closed by [email or web address] on 04/21/23[facility] 05-08-2022 NotePatient Outreach (INTMMN) ELDANALLELY ([id number]) 1960 F Date Time Provider Department 05/08/22 Wayne MARTIN During your visit today, we recorded the following information about you: Allergies As of Date: 05/08/2022 (No Known Allergies) Date Reviewed: 04/26/2022 Reviewed by: Jessica Soriano LPN - Fully Assessed Visit Diagnosis:Encounter for screening mammogram for breast cancer [Z12.31] Order(s):[facility] SCREENING [[id number]] Order #: [id number] FUTURE Prescriptions as of 05/13/2022 - clindamycin (CLEOCIN) 300 mg capsule Take 1 capsule by mouth twice daily. - cyclobenzaprine (FLEXERIL) 5 mg tablet Take 1 tablet by mouth three times daily as needed for Muscle Spasm. - atorvastatin (LIPITOR) 40 mg tablet Take 1 tablet by mouth daily at bedtime. For cholesterol. - lisinopril (ZESTRIL, PRINIVIL) 20 mg tablet Take 1 tablet by mouth once daily. - hydroCHLOROthiazide (HYDRODIURIL, ESIDRIX) 25 mg tablet Take 1 tablet by mouth once daily. - Acrpapywarcuj-He-Vrlu-Minerals (WOMEN'S DAILY MULTIVITAMIN) 18-0.4 mg ORAL Tab Take by mouth once daily. One daily - calcium, elemental, ORAL Tab Take 1 tablet by mouth twice daily. - Doran-3 Fatty Acids (FISH OIL) 500 mg ORAL Cap Take 1 capsule by mouth once daily. - cholecalciferol, vitamin D3, (VITAMIN D-3) 400 unit ORAL Cap Take 1 capsule by mouth once daily. Problem List As Of Date 05/08/2022 Noted Resolved Breast lump in female [N63.0] 03/09/2012 Amenorrhea [N91.2] 03/09/2012 Smoking 1/2 pack a day or less [F17.210] 03/09/2012 Back pain [M54.9] Routine physical examination [Z00.00] 01/08/2013 Hyperlipidemia [E78.5] Screening for colon cancer [Z12.11] 02/08/2013 Encounter Status:Closed by ARIAS, PRODUSER on 05/13/22[facility] 04-27-2022 NoteHNO ID: [id number] Author: Marielena Villegas MD Service: ? Author Type: Physician Type: Progress Notes Filed: 04/27/2022 6:40 PM Note Text: FOLLOW UP VISIT NAME: [facility] NO.: [id number] DATE OF SERVICE: 04/26/2022 : 1960 REFERRING PHYSICIAN: CRISTINA Crockett is s/p excision of infected sebaceous cyst on 04/22/2022. VITALS: Blood pressure 130/80, pulse 94, temperature 36.7 ?C (98.1 ?F), height 170.2 cm (5' 7), weight 69.9 kg (154 lb), last menstrual period 11/12/2012, SpO2 97 %. On examination, the wound is granulating well. Surrounding skin is normal. Assessment IMPRESSION: s/p excision of infected sebaceous cyst PLAN: Patient given instruction for wound care. Follow up as per needed. Diagnoses: (Z98.890) Status post skin and subcutaneous tissue surgery (primary encounter diagnosis) Marielena Villegas, [facility]06-18-2022 History of Present illness Narrative* Marielena Villegas MD - 04/27/2022 6:38 PM EDT FOLLOW UP VISIT NAME: [facility] NO.: [id number] DATE OF SERVICE: 04/26/2022 : 1960 REFERRING PHYSICIAN: CRISTINA Crockett is s/p excision of infected sebaceous cyst on 04/22/2022. VITALS: Blood pressure 130/80, pulse 94, temperature 36.7 C (98.1 F), height 170.2 cm (5' 7), weight 69.9 kg (154 lb), last menstrual period 11/12/2012, SpO2 97 %. On examination, the wound is granulating well. Surrounding skin is normal. Assessment IMPRESSION: s/p excision of infected sebaceous cyst PLAN: Patient given instruction for wound care. Follow up as per needed. Diagnoses: (Z98.890) Status post skin and subcutaneous tissue surgery (primary encounter diagnosis) Marielena Villegas MD documented [facility] Procedure note* Marielena Villegas MD - 04/23/2022 7:41 AM EDT Procedure(s): INCISION & DRAINAGE ABSCESS COMPLICATED/MULTIPLE Pre-Procedure Diagnose(s): Infected sebaceous cyst Post-Procedure Diagnose(s): Infected sebaceous cyst After informed consent was obtained, patient counseled to risks/benefits and agrees to proceed. Appropriate time out protocol was followed. Patient was placed in the supine position. The skin overlying the lesion was cleansed with betadyne skin preparation. Sterile surgical drapes were placed. The skin and subcutaneous tissues around the lesion were infiltrated with 1% xylocaine with epinephrine - total of 9 ml used A skin incision was made with a 15 blade scalpel overlying the lesion in a cruciate fashion. It was carried down to the subcutaneous tissues. There was a large amount of purulent fluid that emanated from the wound cavity. This was completely evacuated. There was nonviable fatty tissue and fibrinous exudate and senescent granulation tissue that was debrided. Also the cyst wall of the sebaceous cyst was excised as completely as could be identified given theinflammation in the area. The cavity was 1.5 x 1.5 cm with a depth of 0.5 cm. Hemostasis was achieved by pressure. The wound was densely packed with saline soaked gauze. Dry gauze was placed over the wound and opsite dressing placed over this. Patient tolerated the procedure well. Complications: none EBL - minimal documented in this encounterUniversity [facility]06-13-2022 History of Present illness Narrative* Marielena Villegas MD - 04/22/2022 2:15 PM EDT Nallely Meraz 1960 REFERRING PHYSICIAN: Carmen Lyon APRN.C* CHIEF COMPLAINT: Consult (cyst left breast) HPI: The patient is a 62 year old female presents with skin abscess. She had a previous skin lesion excised in near vicinity about two years ago. She has noted protuberance in area for past 6 months She noted redness/tenderness/swelling in the past week. She admits to cigarettes use PAST MEDICAL HISTORY Diagnosis Date Back pain trampoline injury in highschool DDD (degenerative disc disease), cervical Hyperlipidemia Hypertension Tobacco use PAST SURGICAL HISTORY Procedure Laterality Date COLONOSCOPY FLX DX W/COLLJ SPEC WHEN PFRMD 02/01/13 Normal Colonoscopy -10 year follow up NONE Current Outpatient Medications Medication Sig clindamycin (CLEOCIN) 300 mg capsule Take 1 capsule by mouth twice daily. cyclobenzaprine (FLEXERIL) 5 mg tablet Take 1 tablet by mouth three times daily as needed for Muscle Spasm. Cfkodptqiycbi-Bp-Rycs-Minerals (WOMEN'S DAILY MULTIVITAMIN) 18-0.4 mg ORAL Tab Take by mouth once daily. One daily calcium, elemental, ORAL Tab Take 1 tablet by mouth twice daily. Doran-3 Fatty Acids (FISH OIL) 500 mg ORAL Cap Take 1 capsule by mouth once daily. cholecalciferol, vitamin D3, (VITAMIN D-3) 400 unit ORAL Cap Take 1 capsule by mouth once daily. atorvastatin (LIPITOR) 40 mg tablet Take 1 tablet by mouth daily at bedtime. For cholesterol. (Patient not taking: Reported on 04/22/2022 ) lisinopril (ZESTRIL, PRINIVIL) 20 mg tablet Take 1 tablet by mouth once daily. (Patient not taking:Reported on 04/22/2022 ) hydroCHLOROthiazide (HYDRODIURIL, ESIDRIX) 25 mg tablet Take 1 tablet by mouth once daily. (Patientnot taking: Reported on 04/22/2022 ) ALLERGIES: Patient has no known allergies. PERSONAL HISTORY: Social History Tobacco Use Smoking status: Current Every Day Smoker Packs/day: 0.50 Years: 20.00 Pack years: 10.00 Types: Cigarettes Smokeless tobacco: Never Used Tobacco comment: started smoking 22yo usually 1/2 PPD (10+pkyr) Vaping Use Vaping Use: Never used Substance Use Topics Alcohol use: Yes Alcohol/week: 5.0 standard drinks Types: 2 Cans of Beer (12oz) per week Drug use: No FAMILY HISTORY Problem Relation Age of Onset Ischemic Heart Disease Father 49 [place] at age 49 () Hypertension Father other (colon polyps) Mother The review of systems data was entered by the nurse and reviewed by id Nursing Notes: Deb Ansari RN 04/22/2022 9:25 AM Signed REVIEW OF SYSTEMS: General: The patient denies fatigue, denies weight loss, denies weight gain, denies feeling hot, and denies feelings of cold. Eyes: The patient denies glaucoma, denies eye injury/surgery, does not wear glasses or contacts. Ear/Nose/Throat: The patient denies allergies, denies hayfever, denies ear infections, and denies bloody noses. Cardiovascular: The patient denies chest pain, denies heart disease, NOTES high blood pressure,denies cardiac stent, denies prior heart attack, denies irregular heart beat, denies high cholesterol, denies poor circulation, denies heart failure, other cardiac issues, denies claudication, denies coldfeet, denies peripheral arterial stent. Respiratory: The patient denies tuberculosis, denies pneumonia, denies frequent cough, denies pulmonary embolism, denies shortness of breath, and denies coughing up blood. Gastrointestinal: The patient denies difficulty swallowing, NOTES acid reflux, denies ulcers, denies vomiting, denies jaundice/hepatitis, denies gallbladder problems, denies black or tarry stools, denies hemorrhoids, denies bleeding from rectum, denies diverticulitis, denies constipation, denies diarrhea, denies loss of stool control, and denies hernias. Kidney/Bladder: The patient denies kidney stones, denies urine infections, and denies bloody urine. Skin: The patient denies a history of skin cancer, denies bleeding/changing moles, and denies a history of skin rash. Neurologic: The patient denies a history of epilepsy/convulsions, denies headaches, denies head/spinal injuries, and denies stroke/TIA. Psychiatric: The patient denies psychiatric medications, denies depression, and denies voices, denies substance abuse. Endocrine: The patient denies thyroid disorders, denies diabetes, and denies hormonal problems. Hematologic: The patient denies a history of bruising, denies bleeding, and denies anemia, denies blood clots. Infections: The patient denies a history of measles and mumps, denies rheumatic fever, and denies sexually transmitted diseases. Musculoskeletal: The patient NOTES back pain/injury, denies back problems, denies sciatica, denies knee/foot trouble, denies arthritis, or denies gout. When was patient's last Mammogram screening? 2020 Last Colonoscopy: 2012 Deb Ansari RN PHYSICAL EXAMINATION: General: The patient is 62 year old female, well nourished, well hydrated in no acute distress. Thepatient is oriented to time, place, and person. VITALS: Blood pressure 140/86, pulse 77, temperature 36 C (96.8 F), height 170.2 cm (5' 7), koevri23.8 kg (156 lb), last menstrual period 11/12/2012, SpO2 98 %. Body mass index is 24.43 kg/m . HHead: Normal cephalic, atraumatic Eyes: pupils are equally round, sclera are clear/anicteric Neck is supple with no tracheal deviation Chest/breast - mid upper chest area - 1.5 cm swelling with fluctuance/overlying erythema/tender - no drainage noted Respiratory: Normal respiratory excursion and pattern. Abdominal exam: benign Extremities: no clubbing, cyanosis or edema. Neuro: non focal Psych: normal mood Assessment IMPRESSION: infected sebaceous cyst PLAN: I have discussed the above with the patient. I have offered incision and drainage of this lesion. I have explained the procedure to the patient. To be done in the office using local anesthesia - the wound will have to be left open to heal by secondary intention. Patient is in pain and requests procedure as soon as possible. I have counseled the patient as to the risks of the procedure, including but not limited to: infection, bleeding, injury to any blood vessels/nerves, scar tissue, continued wound infections, complications of anesthesia, etc. the patient understands. The patient wishes to proceed. Patient tolerated procedure (see procedure note). I have answered all questions to the patient s satisfaction and the patient has no further questions. I have confirmed and edited as necessary, the PFSH and ROS obtained by others. Consultation requested by Carmen Lyon for an opinion regarding patient's infected sebaceous cyst. My final recommendations will be communicated back to the requesting physician by way of shared Medical record or letter to requesting physician via US mail. . Diagnoses: (N60.02) Cyst of left breast Return to Clinic: The patient is instructed to follow-up with me in several days for wound check. Medical Decision Making: Problems: Low: Acute, uncomplicated illness or injury Risk: Low: Low risk from testing/treatment Medical Decision Making Level: 3 - Low Marielena Villegas MD * Viviane Bernardo - 04/22/2022 9:37 AM EDT UNIVERSAL PROTOCOL / SAFETY CHECKLIST Procedure to be Performed: Incision and Drainage of skin Abscess of left Breast Area Sign In: A Moment of CARE was completed. Personnel directly involved with the procedure wore the appropriate PPE (Personal Protective Equipment). Patient/Surrogate Stated/Verified: PATIENT VERIFIED(optional for EMERGENT procedures): Patient name, Date of , Relevant allergies and The intended procedure Time Out Communication: Intended patient and procedure match the source documents. Consent documented and matches the intended procedure. Sign Out: SIGN OUT (optional for EMERGENT procedures): No specimen collected. Viviane Bernardo documented in this encounterUniversity [facility]als [facility]06-13-2022 Instructions* Patient Instructions* Viviane Bernardo - 04/22/2022 9:40 AM EDT The following instructions are important for you related to your office visit today with the [facility]. Instructions After I & D You are instructed to return in 4 days for packing removal. We recommend that you take pain medication prior to packing removal. If the dressing becomes soaked or had significant drainage, the dressing should be changed. If there is minor bleeding from this skin edge, you should hold pressure on the incision. If there is continued bleeding, you should contact our office immediately. Wash the wound with gentle soap and water. You may shower. The wound should not be immersed in a pool, bathtub, or even hot tub. If the wound shows signs of redness, inflammation, or purulent drainage, you should contact our office immediately. If you note any additional difficulties, questions, or concerns, you should contact our office immediately @ [phone] and ask to be transferred to the General Surgery department. documented in this encounterUniversity Hospitals [facility]06-13-2022 Nurse Note* Deb Ansari RN - 04/22/2022 9:20 AM EDT REVIEW OF SYSTEMS: General: The patient denies fatigue, denies weight loss, denies weight gain, denies feeling hot, and denies feelings of cold. Eyes: The patient denies glaucoma, denies eye injury/surgery, does not wear glasses or contacts. Ear/Nose/Throat: The patient denies allergies, denies hayfever, denies ear infections, and denies bloody noses. Cardiovascular: The patient denies chest pain, denies heart disease, NOTES high blood pressure,denies cardiac stent, denies prior heart attack, denies irregular heart beat, denies high cholesterol, denies poor circulation, denies heart failure, other cardiac issues, denies claudication, denies coldfeet, denies peripheral arterial stent. Respiratory: The patient denies tuberculosis, denies pneumonia, denies frequent cough, denies pulmonary embolism, denies shortness of breath, and denies coughing up blood. Gastrointestinal: The patient denies difficulty swallowing, NOTES acid reflux, denies ulcers, denies vomiting, denies jaundice/hepatitis, denies gallbladder problems, denies black or tarry stools, denies hemorrhoids, denies bleeding from rectum, denies diverticulitis, denies constipation, denies diarrhea, denies loss of stool control, and denies hernias. Kidney/Bladder: The patient denies kidney stones, denies urine infections, and denies bloody urine. Skin: The patient denies a history of skin cancer, denies bleeding/changing moles, and denies a history of skin rash. Neurologic: The patient denies a history of epilepsy/convulsions, denies headaches, denies head/spinal injuries, and denies stroke/TIA. Psychiatric: The patient denies psychiatric medications, denies depression, and denies voices, denies substance abuse. Endocrine: The patient denies thyroid disorders, denies diabetes, and denies hormonal problems. Hematologic: The patient denies a history of bruising, denies bleeding, and denies anemia, denies blood clots. Infections: The patient denies a history of measles and mumps, denies rheumatic fever, and denies sexually transmitted diseases. Musculoskeletal: The patient NOTES back pain/injury, denies back problems, denies sciatica, denies knee/foot trouble, denies arthritis, or denies gout. When was patient's last Mammogram screening? 2020 Last Colonoscopy: 2012 Deb Ansari RN documented in this encounterUniversity Hospitals [facility]06-07-2022 Instructions* Patient Instructions* Carmen Lyon APRN.CNP - 04/16/2022 1:09 PM EDT 1. Start the clindamycin -- one pill twice daily X 7 days. 2. Hot compresses. 3. Schedule w/ general surgery. 4. Return for visit/physical w/ Alexis. documented in this encounterUniversity Hospitals [facility]ar[facility]06-07-2022 History of Present illness Narrative* Carmen Lyon APRN.CNP - 04/16/2022 1:01 PM EDT This is a 62 year old female who presents today with: Patient presents with: Acute Visit: cyst on left breast HISTORY OF PRESENT ILLNESS: Nallely Meraz is a 62 year old female. Patient presents with: Acute Visit: cyst on left breast Pt presents today with complaint of a breast cyst that is infected. Refers that she previously had a cyst removed several years ago. Refers that she developed another one approximately 6 months ago. Dog jumped on her last week and scratched the area and it has become infected. She is using a salve on the area. Minimal drainage. PAST MEDICAL HISTORY: PAST MEDICAL HISTORY Diagnosis Date Back pain trampoline injury in highschool DDD (degenerative disc disease), cervical Hyperlipidemia Hypertension Tobacco use PAST SURGICAL HISTORY Procedure Laterality Date COLONOSCOPY FLX DX W/COLLJ SPEC WHEN PFRMD 02/01/13 Normal Colonoscopy -10 year follow up NONE ALLERGIES Patient has no known allergies. MEDICATIONS Current Outpatient Medications Medication Sig Pmxvglkweiqrt-Px-Wdmd-Minerals (WOMEN'S DAILY MULTIVITAMIN) 18-0.4 mg ORAL Tab Take by mouth once daily. One daily calcium, elemental, ORAL Tab Take 1 tablet by mouth twice daily. Doran-3 Fatty Acids (FISH OIL) 500 mg ORAL Cap Take 1 capsule by mouth once daily. cholecalciferol, vitamin D3, (VITAMIN D-3) 400 unit ORAL Cap Take 1 capsule by mouth once daily. cyclobenzaprine (FLEXERIL) 5 mg tablet Take 1 tablet by mouth three times daily as needed for Muscle Spasm. atorvastatin (LIPITOR) 40 mg tablet Take 1 tablet by mouth daily at bedtime. For cholesterol. lisinopril (ZESTRIL, PRINIVIL) 20 mg tablet Take 1 tablet by mouth once daily. hydroCHLOROthiazide (HYDRODIURIL, ESIDRIX) 25 mg tablet Take 1 tablet by mouth once daily. No current facility-administered medications for this visit. FAMILY HISTORY Problem Relation Age of Onset Ischemic Heart Disease Father 49 [place] at age 49 () Hypertension Father other (colon polyps) Mother Social History Tobacco Use Smoking status: Current Every Day Smoker Packs/day: 0.50 Years: 20.00 Pack years: 10.00 Types: Cigarettes Smokeless tobacco: Never Used Tobacco comment: started smoking 22yo usually 1/2 PPD (10+pkyr) Substance Use Topics Alcohol use: Yes Alcohol/week: 5.0 standard drinks Types: 2 Cans of Beer (12oz) per week Drug use: No EXAM: BP 126/84 Pulse 69 Resp 18 Wt 69.9 kg (154 lb) LMP 11/12/2012 SpO2 98% BMI 26.43 kg/m PHYSICAL EXAM: General Appearance: Well appearing, alert, in no acute distress, well-hydrated, well nourished. Skin: Skin color, texture, turgor normal, no suspicious rashes or lesions. Left inner breast with infected cyst. No drainage. Mildly fluctuant. Head: Normocephalic, no masses, lesions, tenderness or abnormalities. Eyes: Anicteric sclera. Extraocular movements are intact. . Lungs: Lungs clear to auscultation. No wheezing, rhonchi, rales.. Heart: RRR without murmur, gallop, or rubs. No ectopy. Neurologic: Gait normal. ASSESSMENT/PLAN: 1. Cyst of left breast - ICD9: 610.0, ICD10: N60.02 Warm compresses. Likely will need I&D. Schedule w/ general surg. Start clindamycin. - CONSULT TO GENERAL SURGERY - CLINDAMYCIN HCL 300 MG CAPSULE Discussed treatment plan and patient voices understanding. Patient's questions answered appropriately. Medications and potential side effects were discussed and patient voices understanding. Encouraged to return for routine office visit/health maintenance needs. Return to the office as scheduled or as needed for worsening/no improvement. Carmen Lyon APRN.INTERNAL COMBUSTION ENGINE SUBASSEMBLER documented in this encounterTampa ClinicDisnorwalk memorial hospitalr summary Author Terry Rosenberg [facility] Note Date/Time May 30, 2025 1:24 pm [facility] Medical Records Department [address] [place] [address] Emergency Department Summary 05/30/25 MR#: [id number] Acct: [id number] Name: NALLELY MERAZ Rep #:[id number] : 1960 65 From: Terry Rosenberg MD PCP: Dr. Evelyne Yang MD Status:REG ER Location: ED HPI HPI - GI History of Present Illness Chief Complaint: GI Bleed Detail of Chief Complaint: Lower abdominal pain and bloody diarrhea Informant: patient Abdominal Pain/Flank Pain Onset: Today (Diarrhea started today.) and Yesterday (Vomited twice yesterday) Context: Sudden Onset Timing: Intermittent and Waxes and wanes Quality: Cramping Location: RLQ and LLQ Current Severity: Mild Maximum Severity: Moderate Worsened by: - (Examination, deep palpation); Not Worsened By Food or Movement Relieved by: Nothing and Remaining Still; Not Relieved By Antacids or Food Nausea/Vomiting/Emesis GI Symptom: Positive for Nausea and Vomiting Onset: Yesterday Diarrhea/Melena/Hematochezia GI Symptom: Positive for Diarrhea Onset: Today Stool Quality: Positive for Loose, Watery and BRB per rectum Associated Symptoms Associated Symptoms: Negative for Dysuria, Frequency, Hematuria or Urgency LMP: Postmenopausal Narrative Narrative: Patient is a 65-year-old woman. She has not had a colonoscopy in some time. She presents because of nausea and vomiting that occurred yesterday x 2. Today she reports lower cramping abdominal pain with diarrhea that is bloody. She hasnot been on any antibiotic in the past month. She does not know if she has history of diverticulosis. She denies weight gain or weight loss. She denies night sweats. She denies dysuria, frequency, urgency or hematuria. She denies low back pain or flank pain. She denies bone pain. She has not been around anyill contacts. She has no antibiotic allergies. She occasionally has an alcoholic beverage. Did not had an alcoholic beverage in over a month. Prior similar symptoms: No Recent Illness/Hospitalization: No PFSH PFSH Medical History Hypertension Chronic headaches Cyst of breast Tobacco abuse Home Medications ?Medication ?Instructions ?Recorded ?Last Taken ?Type ciprofloxacin HCl 500 mg tablet 500 mg PO BID #14 TABL ETS 05/30/25 Unknown Rx dicyclomine 10 mg capsule 20 mg (2 x 10 mg) PO TIDAC # 20 05/30/25 Unknown Rx CAPSULES metronidazole 500 mg tablet 500 mg PO Q8H #21 tabs Unknown Rx adzjslvi-muza-etwb 8 mg-folic 400 1 tab PO DAILY 05/3005/29/25 History mcg-K 50 mcg-lutein 300 mcg tablet ([facility]) Allergy/AdvReac Type Severity Reaction Status Date / Time No Known Allergies Allergy Verified 05/30/25 10:43 Family History Father Myocardial infarction Hypertension Surgical History History of removal of cyst Social History Smoking Status: Current every day smoker tobacco type: cigarettes alcohol intake: current alcohol intake frequency: holidays/special occasions only substance use type: does not use what type of physical activity do you participate in: walking frequency: 3-4 times per week ROS ROS ED Constitutional Constitutional ED: Denies chills, fever(s), subjective, sweats or weight loss Cardiovascular Cardiovascular: Denies chest pain or palpitations Respiratory/Chest Respiratory/Chest: Denies cough, dyspnea or dyspnea on exertion Gastrointestinal Gastrointestinal: Reports abdominal pain, diarrhea, nausea, vomiting and other Details: Denies hematemesis or coffee-ground emesis. ; Denies constipation or melena Genitourinary Genitourinary ED: Denies dysuria, hematuria or urinary frequency Musculoskeletal Musculoskeletal: Denies back pain Integumentary Denies rash Neurologic Neurologic: Denies weakness Hematologic/Lymphatic Hematologic/Lymphatic: Denies easy bleeding or easy bruising EXAM Physical Exam Const Vital Signs: 05/30/25 10:41 05/30/25 11:28 05/30/25 12:44 Temperature 98 F Temperature Source Oral Pulse Rate 96 69 Pulse Rate [Lying] 77 Pulse Rate [Sitting (for 1 minute prior to obtaining)] 85 Pulse Rate [Standing (for 1 minute prior to obtaining)] 97 Respiratory Rate 16 19 H Blood Pressure 177/104 H 166/139 H Blood Pressure [Lying] 184/92 H Blood Pressure [Sitting (for 1 minute prior to obtaining)] 177/102 H Blood Pressure [Standing (for 1 minute prior to obtaining)] 174/105 H Blood Pressure Mean 128 148 Blood Pressure Mean [Lying] 122 Blood Pressure Mean [Sitting (for 1 minute prior to obtaining)] 127 Blood Pressure Mean [Standing (for 1 minute prior to obtaining)] 128 Pulse Ox 98 99 Oxygen Delivery Method Room Air Room Air Positive well nourished and well developed Constitutional Narrative: Orthostatic vital signs negative. General Appearance ED: well developed; Negative for pallor HEENT Reports TM's clear and dry mucous membranes normocephalic and atraumatic Tympanic Membrane ED: Yes TM's clear Mouth ED: Yes dry mucous membranes Mouth: dry mucous membranes Eyes PERRL and EOMs intact bilaterally General Eye ED: Negative for pale conjunctiva or scleral icterus Neck no lymphadenopathy, supple and no JVD Resp normal respiratory effort and clear to auscultation bilaterally Cardio regular rate, regular rhythm, S1 normal heart sound, S2 normal heart sound and no murmurs GI non-distended and no masses; Negative for non-tender Auscultation: hypoactive bowel sounds Palpation: soft and tender LLQ and RLQ; Negative for guarding, rigid, hepatomegaly, splenomegaly, hernia, mass or pulsatile mass Back/Spine no CVA tenderness Extremity full ROM General Extremety ED: Negative for edema or tenderness General Extremity: Negative for edema Neuro CN's II-XII intact bilaterally and moves all extremities Sensorium / Orientation: alert Psych mental status grossly normal Skin no wounds General Skin Exam: Negative for jaundice or pallor Lesions: no lesions Rashes: no rashes MDM MDM MDM Narrative Medical decision making narrative: With bloody diarrhea cramping abdominal pain need to consider infectious etiology, ischemic colitis, atypical presentation for diverticulitis. Will obtain blood work to assess white count, H&H electrolyte panel to assess renal function and electrolytes and specifically hypokalemia. Since she had blood on rectal exam with moist she watery stool she was typed and screened and orthostatic vital signs were obtained. Lab Data Attestation: I reviewed the patient's lab results. Lab results narrative: CBC is remarkable slight elevated white count. Differential is normal. Basic metabolic panel is unremarkable. Lactate is normal. Labs: Laboratory Results - last 24 hr 05/30/25 11:24 WBC 11.1 H RBC 4.92 Hgb 15.3 H Hct 44.5 MCV 90.4 MCH 31.1 MCHC 34.4 RDW Std Deviation 42.3 RDW Coeff of Angy 12.8 Plt Count 219 MPV 10.5 Immature Gran % (Auto) 0.300 Neut % (Auto) 67.3 Lymph % (Auto) 25.9 [place] % (Auto) 4.9 Eos % (Auto) 1.0 Baso % (Auto) 0.6 Absolute Neuts (auto) 7.5 Absolute Lymphs (auto) 2.88 Nucleated RBC % 0 Sodium 141 Potassium 3.9 Chloride 103 Carbon Dioxide 25.4 Anion Gap 12 BUN 17 Creatinine 0.76 Estim Creat Clear Calc 68.18 Est GFR (MDRD) Non-Af 87 BUN/Creatinine Ratio 22.2 H Glucose 103 H Lactic Acid 1.2 Calcium 11.0 Blood Type B NEGATIVE Antibody Screen NEGATIVE Radiography Diagnostic Testing: Clinical Impression(s) from Imaging Studies Abdomen/Pelvis CT 05/30/25 11:17 IMPRESSION: 1. Small esophageal hiatal hernia. 2. Hepatomegaly with fatty infiltration. 3. No obstructive uropathy. 4. Umbilical hernia containing fat. 5. Fecal retention in the colon consistent with constipation. 6. Apparent wall thickening of the sigmoid colon, likely secondary to chronic inflammation. No current fat stranding to indicate acute inflammation. 7. Colonic diverticulosis without acute diverticulitis. Reading Location: [facility] CT was reviewed. In light of the thickening of the sigmoid colon and no recent colonoscopy outpatient appointment was made to see Dr. Borja for colonoscopy. She was treated with metronidazole and ciprofloxacin. She also had other abnormalities. These would not explain her symptoms. She also has evidence of constipation per the radiologist which I am in agreement. I wonder if she is actually having diarrhea around the fecal load. Discharge Plan Triage Chief Complaint: GI Bleed ED Provider: Terry Rosenberg Dx/Rx/DC Orders Clinical Impression: Bloody diarrhea, Colon wall thickening, Elevated blood pressure reading with diagnosis of hypertension, Encopresis, Abdominal cramping, bilateral lower quadrant Instructions: ED Diarrhea, Unknown Cause Prescriptions: New metronidazole 500 mg tablet 500 mg PO Q8H Qty: 21 0RF ciprofloxacin HCl 500 mg tablet 500 mg PO BID Qty: 14 0RF dicyclomine 10 mg capsule 20 mg PO TIDAC Qty: 20 0RF No Action [facility] Women's Mature 8 mg iron-400 mcg-50 mcg tablet 1 tab PO DAILY Primary Care Provider: Evelyne Yang Referrals: Evelyne Yang MD [Primary Care Provider] - Magan Borja DO [Med Staff - Active Staff] - Keep Jacobo appointment Print Language: Yemeni Disposition Disposition: Home, Self Care What to do if you have Problems For any increased pain, shortness of breath, bleeding, nausea or vomiting, chestpain, or any unexpected problems, contact your Primary Care Provider. Call [facility] ([phone]) or report to the closest Emergency Room. Call 911 if necessary. 05/30/25 1324 <Electronically signed by Terry Rosenberg MD> Cosigner Signature (if applicable): CC: Dr. Evelyne Yang MD ~ Signed [facility] Work Phone: Evaluation note* Diagnosis Cyst of left breast- Primary [facility]* Diagnosis Infected sebaceous cyst Sebaceous cyst documented in this encounter [facility] note* Diagnosis Status post skin and subcutaneous tissue surgery- Primary Other postprocedural status documented in this encounter [facility] note* Diagnosis Encounter for screening mammogram for breast cancer documented in this encounter [facility] note* Diagnosis Onset Date Resolution Status Abdominal bruit acute Encounter to establish care acute History of cigarette smoking acute PVD (peripheral vascular disease) with claudication acute [facility] Work Phone: Evaluation note* Diagnosis Onset Date Resolution Status Abdominal bruit acute Encounter to establish care acute History of cigarette smoking acute PVD (peripheral vascular disease) with claudication acute Abnormal ankle brachial index ([place]) acute Carotid bruit acute Irregular heartbeat acute PVD (peripheral vascular disease) with claudication acute [facility] Work Phone: Evaluation noteNo assessment information available [facility] Work Phone: Evaluation note* Diagnosis Onset Date Resolution Status Admit Date Bloody diarrhea acute May 11:23am Colon wall thickening acute May 11:23am [facility] Work Phone: Reason for referral (narrative)* Diagnostic Procedure Only (Routine) - Pending Review Specialty Diagnoses / Procedures Referred By Karime rice Referred To Contact [facility] Diagnoses Encounter for screening mammogram for breast cancer Procedures HANK SCREENING SCREENING MAMMOGRAPHY BI 2-VIEW BREAST INC Wayne Hopper PA-C [address] [place] [address] [facility] [place] [address] Referral ID Status Reason Start Date Expiration Date Visits Requested Visits Authorized [id number] Pending Review Auto-Generat ed Referral 05/08/2022 06/07/2023 1 1 [facility]No reason for referral information availableLakehealth [facility] Center Work Phone: Reason for Referral Specialty Diagnoses / Procedures Referred By Karime rice Referred To Contact General Surgery Diagnoses Cyst of left breast Procedures CONSULT TO GENERAL SURGERY OFFICE/OUTPATIENT [facility] 60-74 MINUTES Carmen Lyon APRN.INTERNAL COMBUSTION ENGINE SUBASSEMBLER [address] [place] [address] Referral ID Status Reason Start Date Expiration Date Visits Requested Visits Authorized [id number] Pending Review PCP Requested Referral 04/16/2022 04/16/2023 1 1 Chief Complaint and Reason for Visit 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 - NPP S ENT INT LABS ABDOMINAL BRUIT Peripheral vascular disease Cardiac arrhythmia, unspecified BRUIT PAD PAD Reason for Visit Abdominal bruit Encounter to establish care History of cigarette smoking PVD (peripheral vascular disease) with claudication Abnormal ankle brachial index ([place]) Carotid bruit Irregular heartbeat PVD (peripheral vascular disease) with claudication Chief Complaint Admit Date gi bleed May 30, 2025 10:4 0am Chief Complaint Admit Date gi bleed May 30, 2025 10:4 0am ED follow up May 31, 2025 11:2 3am Reason for Visit Admit Date Bloody diarrhea May 31, 2025 11:2 3am Colon wall thickening May 31, 2025 11 :23am Chief Complaint Admit Date gi bleed May 30, 2025 10:4 0am ED follow up May 31, 2025 11:2 3am E ORDERS June 02, 2025 10:5 7am Family History No Family History Records Found Relationship Condition Age at Onset Recorded Date/T melissa father Myocardial infarction Unknown Hypertension Unknown Advance Directives No Advanced Directives Records Found Advance Directive Response Recorded Date/ Time Advance Directives No December 06, 2015 10:42am Living Will No March 02, 2019 8:08pm Power of Drywall Taper Helper No March 02 8:08pm Advance Directive Response Recorded Date/ Time Advance Directives No December 06, 2015 9:42am Living Will No March 02, 2019 7:08pm Power of Drywall Taper Helper No March 02 7:08pm Advance Directive Response Recorded Date/ Time Advance Directives No September 6:58am Living Will No October 01 022 6:58am Power of Drywall Taper Helper No October 01, 2022 6:58am Advance Directive Response Recorded Date/ Time Do you have a Healthcare Power of Drywall Taper Helper? No May 30, 2025 11:14am Advance Directives No September 7:58am Summary Purpose Additional Source Comments Source Comments (unrecognize d section and content) In the event this informatio n is protected by the Federal Confidentiality of Alcohol and Drug Abuse Patient Records regulations: The Federal rules restrict any use of the information to criminally investigate or prosecute any alcohol or drug abuse patient.[facility] the event this information is protected by the Federal Confidentiality of Alcohol and Drug Abuse Patient Records regulations: The Federal rules restrict any use of the information to criminally investigate or prosecute any alcohol or drug abuse patient.[facility] the event this information is protected by the Federal Confidentiality of Alcohol and Drug Abuse Patient Records regulations: The Federal rules restrict any use of the information to criminally investigate or prosecute any alcohol or drug abuse patient.[facility] Center[facility] the event this information is protected by the Federal Confidentiality of Alcohol and Drug Abuse Patient Records regulations: The Federal rules restrict any use of the information to criminally investigate or prosecute any alcohol or drug abuse patient.[facility] Reason for Visit (unrecogniz ed section and content) Reason Comments Acute Visit cyst on left breast Reason Comments Consult cyst left breast Specialty Diagnoses / Procedures Referred By Karime rice Referred To Contact General Surgery Diagnoses Cyst of left breast Procedures CONSULT TO GENERAL SURGERY OFFICE/OUTPATIENT [facility] 60-74 MINUTES Carmen Lyon APRN.INTERNAL COMBUSTION ENGINE SUBASSEMBLER [address] [place] [address] Referral ID Status Reason Start Date Expiration Date Visits Requested Visits Authorized [id number] Pending Review PCP Requested Referral 04/16/2022 04/16/2023 1 1 Reason Comments Follow Up abscess on left na st, remove packing Care Teams (unrecognized sec tion and content) Marketing Forecaster Relationship Specialty Start Date End Date Wayne Martin PA-C [address], [place] [phone] PCP - General Family Practice 04/09/19 Marketing Forecaster Relationship Specialty Start Date End Date Wayne Martin PA-C [address], [place] [id number] PCP - General Acute Hospital Practice 04/09/19 Marketing Forecaster Relationship Specialty Start Date End Date Wayne Martin PA-C [address], [place] [id number] PCP - General Acute Hospital Practice 04/09/19 Marketing Forecaster Relationship Specialty Start Date End Date Wayne Martin PA-C [address], [place] [id number] PCP - General Acute Hospital Practice 04/09/19 Team Status: Active Member Role/Relationship Status Dates Dr. Evelyne Yang MD Primary Care Provider Active Team Status: Inactive Member Role/Relationship Status Dates Dr. Evelyne Yang MD Primary Care Provider Active Start: May 30, 2025 End: May 30, 2025 Dr. Terry Rosenberg MD Emergency Provider Active Sta rt: May 30, 2025 End: May 30, 2025 Team Status: Inactive Member Role/Relationship Status Dates Dr. Evelyne Yang MD Primary Care Provider Active Start: May 31, 2025 End: May 31, 2025 Dr. Evelyne Yang MD Referring Provider Active Start: May 31, 2025 End: May 31, 2025 JORDEN Delong Attending Provider Active Start: May 31, 2025 End: May 31, 2025 Team Status: Inactive Member Role/Relationship Status Dates Dr. Evelyne Yang MD Primary Care Provider Active Start: May 30, 2025 End: May 30, 2025 Dr. Terry Rosenberg MD Attending Provider Active Sta rt: May 30, 2025 End: May 30, 2025 Dr. Terry Rosenberg MD Emergency Provider Active Sta rt: May 30, 2025 End: May 30, 2025 Team Status: Inactive Member Role/Relationship Status Dates Dr. Evelyne Yang MD Primary Care Provider Active Start: June 02, 2025 End: June 02, 2025 JORDEN Delong Attending Provider Active Start: June 02, 2025 End: June 02, 2025 JORDEN Delong Referring Provider Active Start: June 02, 2025 End: June 02, 2025 Goals (unrecognized section and content) Goals may be documented in a n alternate sectionGoals may be documented in an alternate sectionGoals may be documented in an alternate sectionGoals may be documented in an alternate sectionGoals may be documented in an alternate sectionGoals may be documented in an alternate sectionGoals may be documented in an alternate section INFORMATION SOURCE (unrecogn ized section and content) DATE CREATED AUTHOR 04/23/2023 [facility] DATE CREATED AUTHOR AUTHOR'S JUNIOR VENTURA 07/30/2025 [facility] FOR RECORDS PERTAINING TO PATIENTS WHO ARE OR HAVE BEEN ENROLLED IN A CHEMICAL DEPENDENCY/SUBSTANCEABUSE PROGRAM, SOME INFORMATION MAY BE OMITTED. This clinical summary was aggregated from multiple sources. Caution should be exercised in using it in the provision of clinical care. This summary normalizes information from multiple sources, and as a consequence, information in this document may materially change the coding, format and clinical context of patient data. In addition, data may be omitted in some cases. CLINICAL DECISIONS SHOULD BE BASED ON THE PRIMARY CLINICAL RECORDS. [employer] provides no warranty or guarantee of the accuracy or completeness of information in this document.
[2025-08-12] MEDS: Lactated Ringers 1,000 ML 15 ML IV (06:00)
--- NOTE | 2025-08-12 06:30 | COLBX_PTH ---
PATIENT: EVIN SCHROEDER LOC: EN U#:[id number] AGE/SX: 65/F ROOM: RE08/12/[address]: Dr. Magan Borja DO : 1960 BED: DIS: 08/12/2025 SPEC #: [id number] RECD: 08/12/25 08:57 STATUS: ALEXANDRA VALDEMAR #: [id number] JOY: 08/12/25 06:[address]: Magan Borja DEPT: SURGICAL PATHOLOGY RECD BY: Clarence Prado ENTERED: 08/12/25 09:46 SP TYPE: COLON BX HEYDI DR: Dr. Evelyne Yang MD Tissues: A - SPLENIC FLEXURE B - Cecum, NOS C - COLON BIOPSY Procedures: Surgery Specimen Level IV HEADER OPERATION: Colonoscopy, biopsy PRE-OP DIAGNOSIS: Bloody diarrhea, colon wall thickening TISSUE SUBMITTED: A- Splenic flexure polyp biopsy, B- Cecal polyp biopsy,C- Ileocecal valve polyp biopsy MICROSCOPIC DIAGNOSIS A. Splenic flexure, polyp, biopsy: * Tubular adenoma. B. Cecum, polyp, biopsy: * Tubular adenoma. C. Ileocecal valve, polyp, biopsy: * Tubular adenoma. MICROSCOPIC DESCRIPTION Slides are reviewed. GROSS DESCRIPTION A. Received in fixative is one container labeled with the patient's name and designated Splenic flexure polyp biopsy. The specimen consists of two irregular fragments of hui tissue that measure 0.3 and 0.5 cm. The specimen is totally submitted in one cassette. B. Received in fixative is one container labeled with the patient's name and designated Cecal polyp biopsy. The specimen consists of two irregular fragments of hui tissue that measure 0.3 and 0.4 cm. The specimen is totally submitted in one cassette. C. Received in fixative is one container labeled with the patient's name and designated Ileocecal valve polyp biopsy. The specimen consists of two irregular fragments of hui tissue that measure 0.2 and 0.3 cm. The specimen is totally submitted in one cassette. NE 08/12/2025 CPT:20386u4
--- NOTE | 2025-08-12 06:41 | PRE.ANES_ITS ---
ASA Classification* ASA Classification ASA Classification: 2 Assessment & Plan Anesthesia* Anesthesia Assessment Anesthesia Assessment: Discussed sedation and/or anesthesia options, risks, benefits, and alternatives with patient/parents/legal guardian/POA. Questions invited. The patient/parents/legal guardian/POA seems to understand and agrees to proceed with anesthesia plan. Reviewed the physical assessment, medical history, allergy history and patient home medications list prior to surgery/procedure/anesthetic and documented any changes. Performed airway and anesthesia risk assessments. Anesthesia Type Anesthesia Type: MAC Anesthesia Focused Assessment* Temperature: 97.6 F Pulse Rate: 82 Blood Pressure: 149/79 Respiratory Rate: 16 Pulse Ox: 97 Airway Assessment Mouth opens: >3 cm Mallampati Score: II Labs Anesthesia Preop lab: CBC WBC, (4.4-11.0) 11.1 K/mm3 H 05/30/25, 11:24 RBC, (4.2-5.4) 4.92 M/mm3 05/30/25, 11:24 Hgb, (12.0-15.0) 15.3 g/dL H 05/30/25, 11:24 Hct, (37-47) 44.5 % 05/30/25, 11:24 Plt Count, (150-450) 219 K/mm3 05/30/25, 11:24 CHEMISTRY Potassium, (3.3-5.1) 3.9 mmol/L 05/30/25, 11:24 Sodium, (133-145) 141 mmol/L 05/30/25, 11:24 BUN, (4-19) 17 mg/dL 05/30/25, 11:24 Creatinine, (0.70-1.20) 0.76 mg/dL 05/30/25, 11:24 Glucose, (70-99) 103 mg/dL H 05/30/25, 11:24 TSH, (0.358-3.74) 2.91 uIU/mL 07/12/22, 08:01 COAG Urine Test Negative Negative 12/11/15, 10:35 Pre-Assessment Diagnosis/Proposed Procedure Planned Operative Procedure(s): CSCOPE Anesthesia History Anesthesia History - train controller: Anesthesia History - train controller Hx Hospitalization No 08/08/25 14:52 Any Problems With Anesthesia No 08/08/25 14:52 Cholinesterase deficiency No 08/08/25 14:52 You/Your Family Experience No 08/08/25 14:52 fever (hyperthermia) with Relationship Recent Exposure to Contagious No 08/12/25 05:51 Disease Does patient have nerve No 08/08/25 14:52 stimulator Patient instructed to have device shut off --Does patient have Pacemaker No 08/12/25 05:52 or ICD? When Was Last Pacemaker Check QUESTION #4 FULL TEXT: You/Your Family Experience fever (hyperthermia) with Anesthesia Last Oral Intake Last Oral intake: Last Oral Intake NPO since 02:30 08/12/25 05:52 Meds taken in AM with sips of water? Meds patient instructed to take am of surgery PONV PONV - train controller: PONV - train controller Female Yes 08/08/25 14:52 HX of Motion Sickness No 08/08/25 14:52 HX of N/V After Surgery No 08/08/25 14:52 Non-Smoker No 08/08/25 14:52 Duration of Surgery greater No 08/08/25 14:52 than 60 minutes Number of Risk Factors 1 08/08/25 14:52 PONV Score Low Risk 08/08/25 14:52 Height & Weight Height & Weight: Anesthesia: Height & Weight Height 5 ft 7 in 08/12/25 05:52 Weight: 72.575 kg 08/12/25 05:52 Body Mass Index (BMI) 25.0 08/12/25 05:52 Respiratory Assessment Respiratory Assessment - train controller: Respiratory Tract Infection Hx - train controller Hx Respiratory Tract Infection No 08/08/25 14:52 STOP Sleep Apnea STOP Sleep Apnea - train controller: STOP Sleep Apnea - train controller Hx Hypertension Yes: ON MEDS MANY YRS AGO 08/08/25 14:52 Hx Sleep Apnea No 08/08/25 14:52 CPAP No 12/11/15 12:39 BIPAP No 12/06/15 09:42 Do you snore loudly (louder Yes 08/08/25 14:52 than talking or can be heard Do you often feel tired/ No 08/08/25 14:52 fatigued/ sleepy during daytime? Has anyone observed you stop No 08/08/25 14:52 breathing during sleep? STOP Results Positive 08/08/25 14:52 QUESTION #5 FULL TEXT : Do you snore loudly (louder than talking or can be heard through closed doors)? Tobacco Use History Tobacco Use History - train controller: Tobacco Use History - train controller Tobacco Use Smoking Status Current every day smoker 08/08/25 14:52 Hx Tobacco Use Yes 08/08/25 14:52 Years Smoking Packs Smoked per Day Smoking Cessation Date was within the last 15 years Hx Smoking Cessation Date Hx Smoking Cessation Yes: QUIT DURING 08/08/25 14:52 Counseling Hematologic Medial History Hematologic Hx - train controller: Hematologic Medical Hx - rn clinical documentation Hx of Blood Transfusion No 08/08/25 14:52 Hx of Transfusion in last 3 No 08/08/25 14:52 Months Date of Last Transfusion (if within last 3 months) Ever experience any problems No 08/08/25 14:52 with transfusion(s)? Specify any problems Hx of Preganancy in last 3 No 08/08/25 14:52 Months Nurse Filling Out Transfusion DSCHRIBER 08/08/25 14:52 & Questions: Date: 08/08/25 08/08/25 14:52 Time: 14:54 08/08/25 14:52 Patient unable to answer at this time (ie. confused, unrespo /Reproduction History /Reproductive History - train controller: /Reproductive Hx- train controller Hx Now No 08/08/25 14:52 Gestational Age (in weeks): EDC: Hx Hx Para Hx Section SAB No 08/08/25 14:52 Active Medications Active Medications: Current Medications Generic Name Dose Route Start Last Admin Trade Name Marco PRN Reason Stop Dose Admin Lactated Ringer's 1,000 mls @ 15 mls/hr 08/12/25 05:45 08/12/25 06:00 IV 15 mls/hr .Q48H KATHY Administration PFSH Medical History Wears glasses Post-menopausal Alcohol use Arthritis Back pain Migraine headache Heartburn Shortness of breath on exertion History of pain when walking History of edema History of stress test Hypertension Home Medications ?Medication ?Instructions ?Recorded ?Last Taken ?Type lunlxtfm-[id number]-[id number] 8 mg-folic 400 1 tab PO DAILY 07/21 /25 09/30/25 History mcg-K 50 mcg-lutein 300 mcg tablet ([facility]) Allergy/AdvReac Type Severity Reaction Status Date / Time No Known Allergies Allergy Verified 08/12/25 05:50 Family History Father Myocardial infarction Hypertension Surgical History History of hysteroscopy History of removal of cyst Social History Smoking Status: Current every day smoker tobacco type: cigarettes alcohol intake: current alcohol intake frequency: holidays/special occasions only substance use type: does not use what type of physical activity do you participate in: walking frequency: 3-4 times per week Review of Systems (Anesthesia) ROS Narrative System reviewed and no additional complaints, except as documented.
--- NOTE | 2025-08-12 06:44 | PCM.HP.STD ---
HPI - General General Date of Admission: 08/12/25 Date of Service: 08/12/25 Chief Complaint: diarrhea HPI Narrative NALLELY SCHROEDER, is a 65 F who presents [Chief Complaint: loose stools Details: NALLELY SCHROEDER is a 65 F who presents to the office today for f/u. [facility] ED 05.30.25 with n/v x1 day and lower abd cramping and bloody diarrhea. No recent ATB use. CBC with elevated WBC CT abd/pelvis 05.31.25; 1. Small esophageal hiatal hernia. 2. Hepatomegaly with fatty infiltration. 3. No obstructive uropathy. 4. Umbilical hernia containing fat. 5. Fecal retention in the colon consistent with constipation. 6. Apparent wall thickening of the sigmoid colon, likely secondary to chronic inflammation. No current fat stranding to indicate acute inflammation. 7. Colonic diverticulosis without acute diverticulitis. OV 05.31.25 Pt not having bm as she is not eating much at this point. She does endorse a hx of constipation with bm typically every few days. On Friday, she started with bloody loose stools, n/v and abd pain. This is what prompted her to go to the ED. She has never had an episode like this before. She has taken just one dose of the antibiotics. Last colonoscopy was about 15 years ago with normal findings. CDIFF (PCR) Today K63.9 - Disease of intestine, unspecified, R19.7 - Diarrhea, unspecified Calprotectin, Stool Today K63.9 - Disease of intestine, unspecified, R19.7 - Diarrhea, unspecified Stool Lactoferrin/WBC Today K58.9 - Irritable bowel syndrome, unspecified, K63.9 - Disease of intestine, unspecified, R19.7 - Diarrhea, unspecified Ova and Parasites [id number] Today K58.9 - Irritable bowel syndrome, unspecified, K63.9 - Disease of intestine, unspecified, R19.7 - Diarrhea, unspecified Giardia Lamblia, Stool EIA Today K63.9 - Disease of intestine, unspecified, R19.7 - Diarrhea, unspecified ] [facility] Medical History Wears glasses Post-menopausal Alcohol use Arthritis Back pain Migraine headache Heartburn Shortness of breath on exertion History of pain when walking History of edema History of stress test Hypertension Home Medications ?Medication ?Instructions ?Recorded ?Last Taken ?Type sjtdrjfa-ahgt-qiht 8 mg-folic 400 1 tab PO DAILY 05/30/25 08/09/25 History mcg-K 50 mcg-lutein 300 mcg tablet ([facility]) Allergy/AdvReac Type Severity Reaction Status Date / Time No Known Allergies Allergy Verified 08/12/25 05:50 Family History Father Myocardial infarction Hypertension Surgical History History of hysteroscopy History of removal of cyst Social History Smoking Status: Current every day smoker tobacco type: cigarettes alcohol intake: current alcohol intake frequency: holidays/special occasions only substance use type: does not use what type of physical activity do you participate in: walking frequency: 3-4 times per week ROS Constitutional Constitutional: Denies fatigue, fever(s), poor appetite, weight gain or weight loss Gastrointestinal Gastrointestinal: Denies belching, bloating, change in bowel habits, change in stool character, chewing difficulty, coffee ground emesis, constipation, cramping, diarrhea, dyspepsia, dysphagia, early satiety, excessive flatus, fecal incontinence, heartburn, hematemesis, hematochezia, hemorrhoids, loose stools, melena, nausea, odynophagia, rectal bleeding, tenesmus, vomiting or weight changes Vital Signs Vital Signs Vital Signs: 08/12/25 05:51 08/12/25 05:52 08/12/25 06:41 Temperature 97.6 F L 97.6 F L Temperature Source Temporal Pulse Rate 82 82 Respiratory Rate 16 16 Respiratory Pattern Irregular Blood Pressure 149/79 H 149/79 H Blood Pressure Mean 102 Blood Pressure Source Monitor Blood Pressure Position Semi-Fowlers Blood Pressure Location Left Arm Pulse Ox 97 97 Oxygen Delivery Method Room Air Weight Weight: 160 lb Body Mass Index (BMI) 25.0 Physical Exam Const alert, oriented x3, no apparent distress and healthy appearing General Appearance: cooperative GI normal to inspection, nondistended, normoactive bowel sounds, soft to palpation, non-tender and non-distended Percussion: normal to percussion Rectal Exam: deferred Assessment & Plan Assessment/Plan (1) Diarrhea: PLAN: Plan Assessment and Plan Assessment and Plan (1) Bloody diarrhea: Status: Acute Plan: Nallely is a 65 yo female pt here today for f/u after ED visit for bloody diarrhea, abd pain and n/v x3 days. Pt underwent work up which showed elevated WBC count and CT showing constipation and thickening in the recto sigmoid colon concerning for inflammatory process. She was discharged with cipro and Flagyl. Pt is not eating much so her diarrhea has slowed. She may have overflow diarrhea as she typically has constipation and evidenced by CT. I have recommended she continue antibiotics and add miralax once daily. I have ordered stool testing to rule out infections or inflammation. She was scheduled for colonoscopy today. -Continue ATB -Start miralax -colonoscopy -f/u (2) Colon wall thickening: Status: Acute Orders: Orders CDIFF (PCR) Today K63.9 - Disease of intestine, unspecified, R19.7 - Diarrhea, unspecified Calprotectin, Stool Today K63.9 - Disease of intestine, unspecified, R19.7 - Diarrhea, unspecified Stool Lactoferrin/WBC Today K58.9 - Irritable bowel syndrome, unspecified, K63.9 - Disease of intestine, unspecified, R19.7 - Diarrhea, unspecified Ova and Parasites [id number] Today K58.9 - Irritable bowel syndrome, unspecified, K63.9 - Disease of intestine, unspecified, R19.7 - Diarrhea, unspecified Giardia Lamblia, Stool EIA Today K63.9 - Disease of intestine, unspecified, R19.7 - Diarrhea, unspecified
--- NOTE | 2025-08-12 07:44 | OP.COLON_ITS ---
Patient Name: Nallely Meraz Procedure Date: 08/12/2025 6:37 AM Date of : 1960 Age: 65 Procedure: Colonoscopy Indications: Abdominal pain in the left lower quadrant, Follow-up of diverticulitis Providers: Magan Borja DO Referring MD: Magan Borja DO Medicines: Monitored Anesthesia Care Patient Profile: This is a 65 year old female. Refer to note in patient chart for documentation of history and physical. Last Colonoscopy: date unknown. Unable to locate last colonoscopy report. Complications: No immediate complications. Procedure: Pre-Anesthesia Assessment: - Prior to the procedure, a History and Physical was performed, and patient medications and allergies were reviewed. The patient is competent. The risks and benefits of the procedure and the sedation options and risks were discussed with the patient. All questions were answered and informed consent was obtained. Patient identification and proposed procedure were verified by the physician in the pre-procedure area. Mental Status Examination: alert and oriented. Airway Examination: normal oropharyngeal airway and neck mobility. Respiratory Examination: clear to auscultation. CV Examination: normal. Prophylactic Antibiotics: The patient does not require prophylactic antibiotics. Prior Anticoagulants: The patient has taken no anticoagulant or antiplatelet agents. ASA Grade Assessment: II - A patient with mild systemic disease. After reviewing the risks and benefits, the patient was deemed in satisfactory condition to undergo the procedure. The anesthesia plan was to use monitored anesthesia care (MAC). Immediately prior to administration of medications, the patient was re-assessed for adequacy to receive sedatives. The heart rate, respiratory rate, oxygen saturations, blood pressure, adequacy of pulmonary ventilation, and response to care were monitored throughout the procedure. The physical status of the patient was re-assessed after the procedure. After I obtained informed consent, the scope was passed under direct vision. Throughout the procedure, the patient's blood pressure, pulse, and oxygen saturations were monitored continuously. The Colonoscope was introduced through the anus and advanced to the terminal ileum. The colonoscopy was performed without difficulty. The patient tolerated the procedure well. The quality of the bowel preparation was adequate. The terminal ileum, ileocecal valve, appendiceal orifice, and rectum were photographed. Scope In: 6:58:18 AM Scope Withdrawal Time 0 hours 8 minutes 29 seconds Scope Out: 7:33:23 AM Total Procedure Duration Time 0 hours 35 minutes 5 seconds Findings: The perianal and digital rectal examinations were normal. A diffuse area of moderate melanosis was found in the entire colon. Multiple small and large-mouthed diverticula were found in the recto-sigmoid colon, sigmoid colon and descending colon. A benign-appearing, intrinsic severe stenosis measuring 6 cm (in length) was found in the recto-sigmoid colon and in the sigmoid colon and was traversed. Five sessile polyps were found in the splenic flexure, cecum and ileocecal valve. The polyps were 8 mm in size. These polyps were removed with a cold biopsy forceps. Resection and retrieval were complete. Verification of patient identification for the specimen was done. Estimated blood loss was minimal. Impression: - Melanosis in the colon. - Diverticulosis in the recto-sigmoid colon, in the sigmoid colon and in the descending colon. - Stricture in the recto-sigmoid colon and in the sigmoid colon. - Five 8 mm polyps at the splenic flexure, in the cecum and at the ileocecal valve, removed with a cold biopsy forceps. Resected and retrieved. Recommendation: - Repeat colonoscopy in 3 years for surveillance. Augmentin 875/125 p.o. twice daily x 10 days - Continue present medications. Procedure Code(s): --- Professional --- 40148, Colonoscopy, flexible; with biopsy, single or multiple CPT copyright 2021 [employer]. All rights reserved. The codes documented in this report are preliminary and upon sow farm technician review may be revised to meet current compliance requirements. Magan Borja DO 08/12/2025 7:43:16 AM This report has been signed electronically. Number of Addenda: 0 Note Initiated On: 08/12/2025 6:37 AM
--- NOTE | 2025-08-12 07:44 | OP.PROVAT_ITS ---
08/12/2025 Evelyne Yang [facility] [address] [place] [address] Re : Colonoscopy procedure for Nallely Meraz Dear Dr. Yang This procedure was performed on Tuesday, August 12, 2025. My impressions and recommendations are as follows: Impressions : - Melanosis in the colon. - Diverticulosis in the recto-sigmoid colon, in the sigmoid colon and in the descending colon. - Stricture in the recto-sigmoid colon and in the sigmoid colon. - Five 8 mm polyps at the splenic flexure, in the cecum and at the ileocecal valve, removed with a cold biopsy forceps. Resected and retrieved. Recommendations : - Repeat colonoscopy in 3 years for surveillance. Augmentin 875/125 p.o. twice daily x 10 days - Continue present medications. My findings are described in the full procedure note, which is enclosed. If I can be of further assistance, please feel free to contact me at . Sincerely, Magna Borja, 08/12/2025 7:43:16 AM This report has been signed electronically.
--- NOTE | 2025-08-12 07:45 | PCM.POST.ANE ---
Anesthesia: Postop Eval I Current Vital Signs Temperature: 97 F Pulse Rate: 62 Blood Pressure: 95/54 Respiratory Rate: 16 Pulse Ox: 100 Oxygen Delivery Method: Room Air Assessment Airway patent: Yes Spontaneous unlabored respirations: Yes Mental status: Awake and Calm nausea: No Vomiting: No Anesthesia Complication: No Fluid Hydration Crystalloid volume administer (ml): 800 Total IV fluid infused: 800 Progress Note Anesthesia document: Postop Eval 1 completed: Yes
--- NOTE | 2025-08-12 10:34 | PCM.POSTANE2 ---
Anesthesia Postop Eval I Sum Postop Eval Completion status Anesthesia document: Postop Eval 1 completed: Yes Anesthesia Postop Eval I Summary Anesthesia Postop Eval I Summary: Anesthesia Postop Eval I: Assessment Summary Airway patent Yes 08/12/25 07:46 [email or web address] Spontaneous unlabored Yes 08/12/25 07:46 [email or web address] respirations Mental status Awake,Calm 08/12/25 07:46 [email or web address] nausea No 08/12/25 07:46 [email or web address] Vomiting No 08/12/25 07:46 [email or web address] Anesthesia Postop Eval I: Fluid Summary Crystalloid volume administer 800 08/12/25 07:46 [email or web address] (ml) Colloids volume administered ( ml) Blood Product volume administered (ml) Total IV fluid infused 800 08/12/25 07:46 [email or web address] Anesthesia Postop Eval I: Summary Notes Anesthesia Complication No 08/12/25 07:46 [email or web address] Anesthesia Complication Comment: Post-operative progress note Anesthesia: Postop Eval II Evaluation Mental status: Awake Pain Level: 1 nausea: No Vomiting: No
== END 2025-08-12 08:22 | disposition home or self-care (01) ==
LOC: EN 05:12 → AC 05:13
PROVIDERS: PCP Internal Medicine; Referring Provider Internal Medicine; Visit Provider Internal Medicine Gastroenterology
PROC: 0DJD8ZZ Inspection of Lower Intestinal Tract, Via Natural or Artificial Opening Endoscopic (ICD-10-PCS; CPT 45378; principal; 2025-08-12 06:25)
DX: R19.7 Diarrhea, unspecified (principal); K56.609 Unspecified intestinal obstruction, unspecified as to partial versus complete obstruction; K57.30 Diverticulosis of large intestine without perforation or abscess without bleeding; I10 Essential (primary) hypertension; K63.5 Polyp of colon; K63.89 Other specified diseases of intestine; K58.9 Irritable bowel syndrome, unspecified; F17.210 Nicotine dependence, cigarettes, uncomplicated
CPT/HCPCS: 45380; 88305; J2405